=== PATIENT | female | born 1980 | race Caucasian/White ===

== ENCOUNTER 2020-04-27 23:00 | Emergency (ER) | payer SELFPAY ==
[2020-04-27 23:27] VITALS: BP 215/154; PULSE 99; RESP 18; TEMP 36.8; O2SAT 97; BMI 37.8
[2020-04-27 23:49] VITALS: BP 202/137; PULSE 84; RESP 16; O2SAT 99
[2020-04-28] VITALS (12 sets, daily range): BP systolic 166–199; BP diastolic 110–134; PULSE 74–101; RESP 16–18; O2SAT 94–100
--- NOTE | 2020-04-28 00:04 | ED_ITS ---
HPI - Abdominal Pain General: Chief Complaint: Abdominal Pain Stated Complaint: hernia Time Seen by Provider: 04/28/20 00:00 History of Present Illness: HPI narrative: Patient is a 39-year-old female comes to the ED with abdominal pain. Patient has past surgical history of having 2 abdominal hernias repaired and one inguinal hernia repaired. Her latest abdominal hernia was repaired approximately a year ago. Patient says earlier today she was bending over to grab something she felt something pop in her abdomen. Patient says she noticed that she had a reducible bulge in the same area of her previous abdominal hernia. She now has 8 out of 10 abdominal pain. She says any movement or coughing increases pain. Denies any fever, chills, nausea/vomiting, diarrhea, constipation, dysuria or hematuria. Patient says she was on hydrochlorothiazide for blood pressure in the past but has not been taking her blood pressure med for several months now due to lack of insurance. She says she needs a new prescription for hydrochlorothiazide. Associated Symptoms: Denies chills, constipation, diarrhea, dysuria, fever(s), hematochezia, hematuria, nausea and vomiting Review of Systems Const: Denies: fever(s), chills or fatigue Eyes: Denies: change in vision or eye discomfort ENMT: Denies: throat pain, odynophagia, nasal discharge or nasal congestion Card: Denies: chest pain, palpitations, edema, swelling of feet/ankles, dyspnea on exertion or orthopnea Resp: Denies: dyspnea, productive cough or non-productive cough GI: Reports: abdominal pain; Denies: nausea, vomiting, diarrhea, constipation or hematochezia : Denies: flank pain, dysuria or hematuria Musc: Denies: neck pain, back pain or extremity swelling Skin/Breast: Denies: rash or new lesions Neuro: Denies: headache(s), numbness in extremities or weakness in extremities PFSH ED PFSH: Family History Mother Cancer Lung Grandmother Cancer Breast Social History Smoking and tobacco status: current every day smoker Alcohol intake: current Household members: significant other Current gender identity: Female Physical Exam Const: COMMON NORMALS: no acute distress, patient oriented x3 and alert GENERAL APPEARANCE: cooperative and comfortable HENMT: COMMON NORMALS: normocephalic HEAD & SCALP: normocephalic MOUTH: Normal oral and palatal mucosa present THROAT: posterior oropharynx normal and uvula midline Neck/C-Spine: COMMON NORMALS: supple GENERAL: Yes normal visual inspection Resp: COMMON NORMALS: normal respiratory effort, No retractions, No use of accessory muscles and clear to auscultation bilaterally AUSCULTATION: clear to auscultation bilaterally Cardio: COMMON NORMALS: regular rate, regular rhythm, S1 normal heart sound present, S2 normal heart sound present, No gallops present (Cardio), No clicks present (Cardio), No murmurs present (Cardio) and Peripheral pulses 2+ throughout RATE: regular rate RHYTHM: regular rhythm HEART SOUNDS: S1 normal heart sound present and S2 normal heart sound present PERIPHERAL PULSES: Peripheral pulses 2+ throughout GI: COMMON NORMALS: Normal to inspection, nondistended, normoactive bowel sounds present, Soft to palpation and no masses INSPECTION: No visible herniation PALPATION: Yes Soft to palpation, Yes Tenderness to palpation present (GI) (Periumbilical pain upon palpation. No mass or hernia palpated.), No Hernia present and No Palpable mass present : COMMON NORMALS: Yes no CVA tenderness BLADDER/KIDNEY EXAM: Yes no CVA tenderness EXTERNAL FEMALE EXAM: No Hernia present Back/Pelvis: COMMON NORMALS: no CVA tenderness Extremity: COMMON NORMALS: normal to inspection Neuro: COMMON NORMALS: patient oriented x3 SENSORIUM/ORIENTATION: Yes alert GAIT: Yes Normal gait present Skin: GENERAL SKIN EXAM: dry skin Course Vital Signs: Vital signs: Vital Signs Temperature 98.2 F 04/27/20 23:27 Pulse Rate 91 04/28/20 02:00 Respiratory Rate 18 04/28/20 03:36 Blood Pressure 166/124 04/28/20 02:00 Pulse Oximetry 94 04/28/20 03:36 3:27 AM I went and saw patient and her blood pressure was 184/107. MDM - Abdominal Pain MDM Narrative: Medical decision making narrative: Is a 39-year-old female comes to the ED with abdominal pain. She has a past medical history of abdominal hernia and inguinal hernia. Today she bent over and lifted something up and felt a pop in her abdomen and states that she had a bulge in her abdomen that she was able to reduce. Physical exam showed some periumbilical tenderness but no mass or hernia palpated. CBC, CMP and UA were unremarkable. Lipase 11 and hCG negative. Patient's blood pressure was 215/154. Patient was given 20 mg of IV labetalol and her blood pressure went down to 184/107. Denies any neurological symptoms or headache. Patient says she was taking hydrochlorothiazide to help with her blood pressure but stopped taking it several months ago and has been out of her prescription. CT of the abdomen showed small fat-containing umbilical hernia with some stranding. I placed an order with case management for patient be referred to general surgeon for evaluation. She was diagnosed with umbilical hernia and hypertensive urgency. Patient was sent home with a prescription for hydrochlorothiazide and Zofran for nausea. She was told to follow-up with her PCP in 7 to 10 days for reevaluation and to discuss hernia and blood pressure management. Return to ED precautions given. I told her that case management should be contacting her in the next several days to set up an appointment with general surgery. Patient understood and agreed with plan. Lab Data: Attestation: I reviewed the patient's lab results. Labs: Lab Results 04/28/20 04/28/20 04/28/20 Range/Units 00:23 00:23 00:23 WBC 9.9 (4.0-10.0) 10^3/ uL RBC 4.55 (4.1-5.3) 10^6/u L Hgb 13.9 (11.5-15.3) g/dL Hct 42.1 (37.0-47.0) % MCV 92.5 (81-99) fL MCH 30.5 (28.0-34.0) pg MCHC 33.0 (30.0-36.0) g/dL RDW 13.0 (12.1-15.1) % Plt Count 254 (130-400) 10^3/c mm MPV 10.6 H (7.4-10.4) fL Neut % (Auto) 64.7 % Lymph % (Auto) 27.7 % Foster % (Auto) 6.6 % Eos % (Auto) 0.5 % Baso % (Auto) 0.3 % Neut # (Auto) 6.42 (1.8-7.7) 10^3/u L Lymph # (Auto) 2.8 (0.8-4.8) 10^3/u L Foster # (Auto) 0.7 (0.2-0.9) 10^3/u L Eos # (Auto) 0.1 (0.0-0.8) 10^3/u L Baso # (Auto) 0.0 (0.0-0.1) 10^3/u L Nucleated RBC % (a uto) 0 % Nucleated RBCs # 0.0 /100WBC Sodium 139 (136-145) mmol/L Potassium 3.3 L (3.5-5.1) mmol/L Chloride 101 (98-107) mmol/L Carbon Dioxide 26 (22-29) mmol/L Anion Gap 15.3 (5-19) BUN 8 (6-20) mg/dL Creatinine 0.6 (0.5-0.9) mg/dL GFR Calculation 110.2 (90-130) mL/min Glucose 96 (65-115) mg/dL Calculated Osmolal ity 286 (285-295) mOsm/k g Calcium 9.1 (8.5-10.5) mg/dL Total Bilirubin 0.3 (0.15-1.2) mg/dL AST 15 (0-32) U/L ALT 18 (0-33) U/L Alkaline Phosphata se 78 (35-105) IU/L Total Protein 6.8 (6.6-8.7) g/dL Albumin 4.3 (3.5-5.2) g/dL Globulin 2.5 (1.3-4.6) g/dL Lipase 11 L (13-60) U/L HCG, Qual Negative (Negative) Urine Color (Yellow) Urine Appearance (CLEAR) Urine pH (5-7) Ur Specific Gravit y (1.005-1.030) Urine Protein (Negative) Urine Glucose (UA) (Normal) Urine Ketones (Negative) Urine Blood (Negative) Urine Nitrate (Negative) Urine Bilirubin (Negative) Urine Urobilinogen (Negative) mg/dL Ur Leukocyte Patrica ase (Negative) Urine RBC (0-2) /hpf Urine WBC (0-5) /hpf Ur Squamous Epith Cells (0-5) /hpf Ur Transition Epit h Cell /hpf Amorphous Sediment Urine Bacteria (NONE) /hpf 12/05/20 Range/Units 00:23 WBC (4.0-10.0) 10^3/ uL RBC (4.1-5.3) 10^6/u L Hgb (11.5-15.3) g/dL Hct (37.0-47.0) % MCV (81-99) fL MCH (28.0-34.0) pg MCHC (30.0-36.0) g/dL RDW (12.1-15.1) % Plt Count (130-400) 10^3/c mm MPV (7.4-10.4) fL Neut % (Auto) % Lymph % (Auto) % Foster % (Auto) % Eos % (Auto) % Baso % (Auto) % Neut # (Auto) (1.8-7.7) 10^3/u L Lymph # (Auto) (0.8-4.8) 10^3/u L Foster # (Auto) (0.2-0.9) 10^3/u L Eos # (Auto) (0.0-0.8) 10^3/u L Baso # (Auto) (0.0-0.1) 10^3/u L Nucleated RBC % (a uto) % Nucleated RBCs # /100WBC Sodium (136-145) mmol/L Potassium (3.5-5.1) mmol/L Chloride (98-107) mmol/L Carbon Dioxide (22-29) mmol/L Anion Gap (5-19) BUN (6-20) mg/dL Creatinine (0.5-0.9) mg/dL GFR Calculation (90-130) mL/min Glucose (65-115) mg/dL Calculated Osmolal ity (285-295) mOsm/k g Calcium (8.5-10.5) mg/dL Total Bilirubin (0.15-1.2) mg/dL AST (0-32) U/L ALT (0-33) U/L Alkaline Phosphata se (35-105) IU/L Total Protein (6.6-8.7) g/dL Albumin (3.5-5.2) g/dL Globulin (1.3-4.6) g/dL Lipase (13-60) U/L HCG, Qual (Negative) Urine Color Yellow (Yellow) Urine Appearance Clear (CLEAR) Urine pH 6 (5-7) Ur Specific Gravit y 1.010 (1.005-1.030) Urine Protein Neg (Negative) Urine Glucose (UA) Norm (Normal) Urine Ketones Negative (Negative) Urine Blood Neg (Negative) Urine Nitrate Negative (Negative) Urine Bilirubin Neg (Negative) Urine Urobilinogen Norm (Negative) mg/dL Ur Leukocyte Patrica ase Negative (Negative) Urine RBC 0-4 H (0-2) /hpf Urine WBC None (0-5) /hpf Ur Squamous Epith Cells 25-40 H (0-5) /hpf Ur Transition Epit h Cell 0-4 /hpf Amorphous Sediment Not Reportable Urine Bacteria 2+ H (NONE) /hpf Imaging Data ^: CT Abd/Pel: Attestation: I personally reviewed and interpreted this imaging study as follows: Radiologist's impression: [employer] [address] [address] Scan Report Signed Patient: Maria Victoria Ferrari Unit #: [id number] : 1980 Age/Sex: 39 / F ADM Date: 04/27/20 Loc: ER Room/Bed: Attending Dr: Ordering Provider/Ordering MD: Vern Hamilton Date of Service: 04/28/20 Procedure(s): CT abdomen pelvis w con* [id number] Accession Number(s): [id number] Report Number: [id number] PROCEDURE INFORMATION: Exam: CT Abdomen And Pelvis With Contrast Exam date and time: 04/28/2020 12:51 AM Age: 39 years old Clinical indication: Abdominal pain; Prior surgery; Surgery type: Hernia repair; Patient HX: Periumbilical pain; Additional info: Abdom pain, abdominal hernia TECHNIQUE: Imaging protocol: Computed tomography of the abdomen and pelvis with intravenous contrast. Radiation optimization: All CT scans at this facility use at least one of these dose optimization techniques: automated exposure control; mA and/or kV adjustment per patient size (includes targeted exams where dose is matched to clinical indication); or iterative reconstruction. Contrast material: OMNI 300; Contrast volume: 95 ml; Contrast route: INTRAVENOUS (IV); COMPARISON: CT abdomen pelvis wo con [id number] 05/08/2019 1:43 PM RADIATION DOSE METRICS: Total DLP (mGy-cm): 1331.66 FINDINGS: Liver: Normal. No mass. Gallbladder and bile ducts: Normal. No calcified stones. No ductal dilation. Pancreas: Normal. No ductal dilation. Spleen: Normal. No splenomegaly. Adrenal glands: Normal. No mass. Kidneys and ureters: Small 9 mm round hypodense lesions in the left kidney is too small to characterize but is likely benign. Stomach and bowel: Diverticulosis coli is seen, without evidence of diverticulitis. No intestinal obstruction. Appendix: The appendix is normal. Intraperitoneal space: Unremarkable. No free air. No significant fluid collection. Vasculature: Unremarkable. No abdominal aortic aneurysm. Lymph nodes: Unremarkable. No enlarged lymph nodes. Urinary bladder: Unremarkable as visualized. Reproductive: Unremarkable as visualized. Bones/joints: Unremarkable. No acute fracture. Soft tissues: A small umbilical hernia containing fat is again seen. Mild stranding is observed in the herniated fat. CT/CT abdomen pelvis w con* [id number] IMPRESSION: 1. Small fat containing umbilical hernia demonstrating stranding. Vascular compromise or infection of the herniated fat are diagnostic considerations. 2. Diverticulosis coli. COMMENTS: Consistent with the [employer]'s Incidental Findings Committee white paper (J Am Bret Radiol 2018): Any incidental renal lesion less than 1 cm or classified as too small to characterize, or any incidental cystic renal lesion characterized as simple-appearing, is likely benign. No follow-up imaging is recommended for these lesions per consensus recommendations based on imaging criteria. Radiation Dose CTDIVOL = (mGy): DLP = 1331.66 (mGy-cm) Dictated By: Primitivo Hurtado MD Signed By: Primitivo Hurtado MD Signed Date/Time: 04/28/20142 DD/ 0 Discharge Plan Discharge Patient Disposition: Home Clinical Impression: Asymptomatic hypertensive urgency Hernia, umbilical Qualifiers: Obstruction and gangrene presence: without obstruction or gangrene Qualified Code(s): K42.9 - Umbilical hernia without obstruction or gangrene Condition: Stable Prescriptions: New hydrochlorothiazide 25 mg tablet 25 mg PO QAM Qty: 30 RF: 0 Zofran 4 mg tablet 4 mg PO Q8H Qty: 12 RF: 0 No Action azithromycin 250 mg tablet 250 mg PO DAILY 5 Days Qty: 6 RF: 0 promethazine-DM 6.25-15 mg/5 mL syrup 5 ml PO .q8 hours PRN (Reason: cough) Qty: 120 RF: 0 simvastatin 10 mg tablet 10 mg PO QDAY RF: 0 hydrochlorothiazide 25 mg tablet 25 mg PO QAM RF: 0 fexofenadine [Natalie Allergy] 60 mg tablet 180 mg PO Q24H RF: 0 Discharge Orders: Discharge ED (Routine); Ordered 04/28/20 Ordered By: Vern Hamilton Referrals: Betsy Mitchell, [Primary Care Provider] - Discharge Diet: Regular Discharge Activity: Increase activity as tolerated Patient Instructions: Umbilical Hernia (ED), Hypertensive Crisis (ED), Hypertension (ED) Activity Restrictions/Additional Instructions: Follow-up with medical provider as directed in the next 7 to 10 days to reevaluate hernia and blood pressure management. Case management should be contacting you in the next several days to set up an appointment with general surgery. Take medications as prescribed. Return to the ER or your medical provider if condition worsens. Please read and understand discharge instructions. If any questions, please ask. Stand Alone Forms: Work/School Release Coding Level of Care Code ED Mental Tester for Johang Fwd Exam Comprehensive
--- NOTE | 2020-04-28 00:15 | CTR_ITS ---
PROCEDURE INFORMATION: Exam: CT Abdomen And Pelvis With Contrast Exam date and time: 04/28/2020 12:51 AM Age: 39 years old Clinical indication: Abdominal pain; Prior surgery; Surgery type: Hernia repair; Patient HX: Periumbilical pain; Additional info: Abdom pain, abdominal hernia TECHNIQUE: Imaging protocol: Computed tomography of the abdomen and pelvis with intravenous contrast. Radiation optimization: All CT scans at this facility use at least one of these dose optimization techniques: automated exposure control; mA and/or kV adjustment per patient size (includes targeted exams where dose is matched to clinical indication); or iterative reconstruction. Contrast material: OMNI 300; Contrast volume: 95 ml; Contrast route: INTRAVENOUS (IV); COMPARISON: CT abdomen pelvis wo con [id number] 05/08/2019 1:43 PM RADIATION DOSE METRICS: Total DLP (mGy-cm): 1331.66 FINDINGS: Liver: Normal. No mass. Gallbladder and bile ducts: Normal. No calcified stones. No ductal dilation. Pancreas: Normal. No ductal dilation. Spleen: Normal. No splenomegaly. Adrenal glands: Normal. No mass. Kidneys and ureters: Small 9 mm round hypodense lesions in the left kidney is too small to characterize but is likely benign. Stomach and bowel: Diverticulosis coli is seen, without evidence of diverticulitis. No intestinal obstruction. Appendix: The appendix is normal. Intraperitoneal space: Unremarkable. No free air. No significant fluid collection. Vasculature: Unremarkable. No abdominal aortic aneurysm. Lymph nodes: Unremarkable. No enlarged lymph nodes. Urinary bladder: Unremarkable as visualized. Reproductive: Unremarkable as visualized. Bones/joints: Unremarkable. No acute fracture. Soft tissues: A small umbilical hernia containing fat is again seen. Mild stranding is observed in the herniated fat. CT/CT abdomen pelvis w con* [id number] IMPRESSION: 1. Small fat containing umbilical hernia demonstrating stranding. Vascular compromise or infection of the herniated fat are diagnostic considerations. 2. Diverticulosis coli. COMMENTS: Consistent with the [employer]'s Incidental Findings Committee white paper (J Am Bret Radiol 2018): Any incidental renal lesion less than 1 cm or classified as too small to characterize, or any incidental cystic renal lesion characterized as simple-appearing, is likely benign. No follow-up imaging is recommended for these lesions per consensus recommendations based on imaging criteria. Radiation Dose CTDIVOL = (mGy): DLP = 1331.66 (mGy-cm)
[2020-04-28 00:40] LABS: Basophils % 0.3 %; Eosinophils # 0.1 10^3/uL (0.0-0.8); Eosinophils % 0.5 %; Hematocrit 42.1 % (37.0-47.0); Hemoglobin 13.9 g/dL (11.5-15.3); Lymphocytes # 2.8 10^3/uL (0.8-4.8); Lymphocytes % 27.7 %; Mean Corpuscular Hemoglobin 30.5 pg (28.0-34.0); Mean Corpuscular Volume 92.5 fL (81-99); Mean Platelet Volume 10.6 fL (7.4-10.4); Monocytes # 0.7 10^3/uL (0.2-0.9); Monocytes % 6.6 %; Neutrophils # 6.42 10^3/uL (1.8-7.7); Neutrophils % 64.7 %; Nucleated Red Blood Cells % 0 %; Platelet Count 254 10^3/cmm (130-400); Red Blood Count 4.55 10^6/uL (4.1-5.3); White Blood Count 9.9 10^3/uL (4.0-10.0)
[2020-04-28 00:50] LABS: HCG, Serum Qual Negative (Negative)
[2020-04-28 00:53] LABS: Alanine Aminotransferase 18 U/L (0-33); Albumin Level 4.3 g/dL (3.5-5.2); Alkaline Phosphatase 78 IU/L (35-105); Anion Gap 15.3 (5-19); Aspartate Amino Transferase 15 U/L (0-32); Blood Urea Nitrogen 8 mg/dL (6-20); Calcium 9.1 mg/dL (8.5-10.5); Carbon Dioxide 26 mmol/L (22-29); Chloride 101 mmol/L (98-107); Creatinine Clr Calc Pharmacy 141.6837; Globulin 2.5 g/dL (1.3-4.6); Glomerular Filtration Rate 110.2 mL/min (90-130); Glucose 96 mg/dL (65-115); Lipase 11 U/L (13-60); Osmolality Calculated 286 mOsm/kg (285-295); Potassium 3.3 mmol/L (3.5-5.1); Sodium 139 mmol/L (136-145); Total Bilirubin 0.3 mg/dL (0.15-1.2); Total Protein 6.8 g/dL (6.6-8.7)
[2020-04-28] MEDS: iohexol 300 mg/mL 100 mL Btl IV (00:58)
[2020-04-28] MEDS: ondansetron 2 mg/ML SDV 2 mL 4 MG IVP (01:12)
[2020-04-28] MEDS: morphine 4 mg/mL SDV 1 mL IVP (01:12)
[2020-04-28] MEDS: sodium chloride 0.9% 1,000 ML 999 ML IV (01:13)
[2020-04-28 01:33] LABS: Bilirubin Urine Neg (Negative); Blood Urine Neg (Negative); Glucose Urine UA Norm (Normal); Ketones Urine Negative (Negative); Leukocyte Esterase Urine Negative (Negative); Nitrate Urine Negative (Negative); Protein Urine Neg (Negative); Urine Appearance Clear (CLEAR); Urine Color Yellow (Yellow); Urobilinogen Urine Norm (Negative); pH Urine 6 (5-7)
[2020-04-28 01:34] LABS: Add Urine Culture? No; Bacteria Urine 2+ /hpf; RBC Urine 0-4 /hpf (0-2); Squamous Epithelial Cell Urine 25-40 /hpf (0-5); Transitional Epi Cells Urine 0-4 /hpf
[2020-04-28] MEDS: labetalol 5 mg/mL SDV 20mL 20 MG IVP (02:32)
[2020-04-28] MEDS: HYDROmorphone 1 mg/mL INJ 1 mL IVP (03:36)
[2020-04-28] MEDS: HYDROcodone-acetaminophen 7.5-325 mg Tablet 2 TAB PO (04:00)
--- NOTE | 2020-05-01 09:46 | DCPLANNER ---
international trade manager had message to schedule a follow up appointment for patient with [facility] General Surgery. international trade manager emailed both Tamara and Jenny at the clinic patients information. Patients information will be printed and reviewed. Clinic will call patient with appointment information.
--- NOTE | 2020-05-02 13:40 | DCPLANNER ---
Patient has a follow up appointment scheduled for Thursday, 05.04.20 at 9:[address] Liu. Clinic will call patient with appointment information.
--- NOTE | 2020-05-08 12:13 | DCPLANNER ---
Patient had a follow up appointment scheduled for 05.04.20 with general surgery - patient did attend appointment.
== END 2020-04-28 04:07 | disposition home or self-care (01) ==
PROVIDERS: Emergency Provider Physician Assistant; PCP Internal Medicine
DX: I16.0 Hypertensive urgency (principal); K42.9 Umbilical hernia without obstruction or gangrene; F17.210 Nicotine dependence, cigarettes, uncomplicated
CPT/HCPCS: 12345; 36415; 74177; 80053; 81001; 83690; 84703; 85025; 96361; 96374; 96375; 99283; J1170; J2270; J2405; J3490; J7030; Q9967

== ENCOUNTER → 2020-05-21 16:56 | Outpatient (BNVA) | payer SELFPAY | PROVIDERS: PCP Internal Medicine; Visit Provider Surgery | DX: Z20.828 Contact with and (suspected) exposure to other viral communicable diseases (principal) | CPT/HCPCS: 87635 ==

== ENCOUNTER 2020-05-28 07:17 | Day surgery (SDC) | payer SELFPAY ==
[2020-05-24 12:12] VITALS: BMI 37.2
--- NOTE | 2020-05-28 07:30 | W.PM.OPSUD ---
Surgery/Procedure H&P Update DATE OF PROCEDURE: May 28, 2020 DATE H&P PERFORMED: 05/04/20 H&P UPDATE INFORMATION: I have reviewed H&P completed within last 30 days, I have examined patient prior to procedure and No changes to prior documentation PREOP DIAGNOSIS: Recurrent umbilical hernia PLANNED PROCEDURE: Operation Date: 05/28/20 08:00 Proposed Procedures p open Umbilical Hernia Repair w/ possible Mesh [id number] k42.9(Not Applicable) - Jesus Liu MD
[2020-05-28 07:34] LABS: OR HCG Qualitative Urine Negative (Negative)
[2020-05-28] MEDS: sodium chloride 0.9% 1,000 ML 30 ML IV (07:45)
[2020-05-28] MEDS: vancomycin 1,000 MG in sodium chloride 0.9% 250 ML 250 MG IV (07:45)
--- NOTE | 2020-05-28 07:45 | ANES.PREANE2 ---
Pre-Anesthetic Assessment Pre-Anesthetic Assessment: Height/Weight: Height 1.63 m Weight 98.43 kg Preop Diagnosis: Recurrent umbilical hernia Proposed Procedure: Operation Date: 05/28/20 08:00 Proposed Procedures p open Umbilical Hernia Repair w/ possible Mesh 64201 k42.9(Not Applicable) - Jesus Liu MD Was Beta Tere taken within 24 hours: N/A Last intake: Intake Last Liquid Date 05/26/20 Last Liquid Time 23:59 Last Solid Date 05/27/20 Last Solid Time 22:30 Social: Social History: Tobacco Packs per day: 1 Exam: Pre-Anes Outpt Exam: alert, oriented x 3, clear to auscultation bilaterally and regular rate & rhythm Airway: Submandibular: WNL Cervical ROM: WNL MP: 2 Dentition: Full History/ROS: No significant history except as noted and No significant complaints Pulmonary: Pulmonary: Cough CV/HEM: CV/HEM: HTN : : None reported Hepatic: Hepatic: None reported GI: GI: None reported Metabolic: Metabolic: None reported Musc/skel: Musc/skel: None reported Neuropsych: Neuropsych: None reported Anesthetic Plan: ASA status: 2 Anesthesia: General Risk of > 500 ml blood loss (7ml/kg in children): No PFSH Anesthesia PFSH: Medical History Essential (primary) hypertension Surgical History History of umbilical hernia repair Status post right inguinal hernia repair Family History Mother Cancer Lung Grandmother Cancer Breast Social History Smoking and tobacco status: current every day smoker Alcohol intake: current Household members: significant other Current gender identity: Female Female Reproductive History: Date of last menstrual period: 05/07/20 Data Anesthesia Other Labs: Laboratory Results - last 48 hr 05/28/20 06:18 Urine HCG, Qual Negative Cardiac Studies: No Data to Display
[2020-05-28 07:50] VITALS: BP 178/116; PULSE 106; RESP 20; TEMP 36.4; O2SAT 98
[2020-05-28] MEDS: labetalol 5 mg/mL SDV 20mL 10 MG IVP (07:55)
[2020-05-28] MEDS: labetalol 5 mg/mL SDV 20mL IVP (08:15)
[2020-05-28 09:39] VITALS: BP 162/96; PULSE 82; RESP 20; TEMP 36.4; O2SAT 98
--- NOTE | 2020-05-28 09:40 | PM.OP ---
Operative Report Date of procedure: May 28, 2020 Pre-op Diagnosis: Incarcerated recurrent umbilical hernia Post-op diagnosis: same Procedure Done: Open repair of incarcerated recurrent umbilical hernia with implantation of underlay mesh Specimens removed/disposition: incarcerated omentum Surgeon: Jesus Liu Anesthesia: General Condition: stable Disposition: PACU Procedure: The patient was taken to the operating room and intubated under general anesthesia after IV antibiotic had been administered. The abdomen was prepped and draped in a sterile manner. Using a 15 blade a 3 cm longitudinal incision was made over the umbilicus, subcutaneous tissue was divided with electrocautery and the hernia sac containing incarcerated omentum was excised. Through the hernia defect which measured about 2.5 cm the underlying mesh could be palpated and there was no defect noted suggesting that this was a preperitoneal fat that had become incarcerated in the umbilical defect. The incarcerated omentum was excised and sent to pathology. 3 x [address] mesh was placed in the retrorectus space anterior to the existing mesh and sutured to the fascia using 0 Vicryl suture. The fascia was approximated over the mesh using [id number] 0 Vicryl suture. Wound was irrigated with saline, subcutaneous tissues approximated using interrupted 3-0 Vicryl suture and skin was closed using running subcuticular 4-0 Monocryl suture and surgical glue. 0.5% Marcaine was infiltrated around the incision. The patient was extubated and transferred to recovery room in stable condition.
[2020-05-28 09:46] VITALS: BP 150/98; PULSE 76; RESP 18; O2SAT 98
[2020-05-28 09:50] VITALS: BP 144/97; PULSE 78; RESP 18; TEMP 36.4; O2SAT 95
[2020-05-28 09:57] VITALS: BP 142/93; PULSE 84; RESP 18; TEMP 36.4; O2SAT 98
[2020-05-28] MEDS: HYDROcodone-acetaminophen 5-325 mg Tablet 1 TAB PO (10:21)
[2020-05-28 10:23] VITALS: BP 158/106; PULSE 83; RESP 18; TEMP 36.4; O2SAT 98
--- NOTE | 2020-05-28 18:36 | ANE.PACU2 ---
Inpatient post-anesthesia follow up: Airway intact: Yes Vital signs: Temperature 97.6 F Pulse Rate 83 Respiratory Rate 18 Blood Pressure 158/106 Pulse Oximetry 98 Oxygen Delivery Me thod Room Air Oxygen Flow Rate Fraction of Inspir ed Oxygen Hydration adequate: Yes Nausea and vomiting: No Pain level: 1 Mental status: Baseline
== END 2020-05-28 10:51 | disposition home or self-care (01) ==
PROVIDERS: Anesthesiology; PCP Internal Medicine; Visit Provider Surgery
PROC: (CPT 49587; principal; 2020-05-28 08:00)
DX: K42.0 Umbilical hernia with obstruction, without gangrene (principal); F17.210 Nicotine dependence, cigarettes, uncomplicated; I10 Essential (primary) hypertension
CPT/HCPCS: 49587; 12345; 81025; 84703; 88302; J1100; J1885; J2405; J2704; J2710; J3010; J3370; J3490; J7030; J7050

== ENCOUNTER → 2021-03-06 11:43 | Outpatient (BNVA) | payer OTHER, SELFPAY | PROVIDERS: PCP Internal Medicine | DX: Z20.822 Contact with and (suspected) exposure to COVID-19 (principal) | CPT/HCPCS: 87635 ==

== ENCOUNTER → 2021-06-18 12:06 | Outpatient (BNVA) | payer SELFPAY | PROVIDERS: PCP Internal Medicine | DX: Z20.822 Contact with and (suspected) exposure to COVID-19 (principal) | CPT/HCPCS: 87635 ==

== ENCOUNTER → 2021-09-24 15:23 | Outpatient (BNVA) | payer SELFPAY | PROVIDERS: PCP Internal Medicine; Visit Provider Registered Nurse Neonatal Intensive Care | DX: J02.9 Acute pharyngitis, unspecified (principal); H66.90 Otitis media, unspecified, unspecified ear | CPT/HCPCS: 87880 ==

== ENCOUNTER → 2021-10-01 15:54 | Outpatient (BNVA) | payer SELFPAY | PROVIDERS: PCP Internal Medicine; Visit Provider Family Medicine | DX: J04.0 Acute laryngitis (principal) | CPT/HCPCS: 87880 ==

== ENCOUNTER 2022-01-05 11:31 | Observation (INO) | payer SELFPAY ==
[2022-01-05] VITALS (20 sets, daily range): BP systolic 146–259; BP diastolic 84–148; PULSE 80–125; RESP 15–88; TEMP 36.7; O2SAT 94–100; BMI 36.8
[2022-01-05] MEDS: amlodipine 10 mg Tablet PO (12:30)
[2022-01-05] MEDS: labetalol 5 mg/mL SDV 20mL 10 MG IVP ×2 (12:32→15:27)
--- NOTE | 2022-01-05 12:35 | W.ED.HA ---
HPI - Headache General: Chief Complaint: Headache Stated Complaint: pain in the back of neck and puffy in face. Time Seen by Provider: 01/05/22 12:17 Source: patient Mode of arrival: ambulatory Limitations: no limitations History of Present Illness: 1-year-old female presents emergency room with a headache she playset had it for the last 2 weeks with the base of her neck and her scalp her blood pressures been elevated as well she has not taken her medicines for a couple of months. She denies any weakness no chest pain no visual changes no difficulty speaking or swallowing. She complains a little bit of ear pain on the right but does not have any drainage from it has not seen anybody for it. MD elicited complaint: headache Onset description: suddenly Location: right Quality & Timing: throbbing Exacerbating factors: none Relieving factors: nothing Context: occurred at rest Associated symptoms: Deny chest pain, confusion, cough, diaphoresis, eye pain, eye redness, fever(s), lightheadedness, loss of vision, malaise, nausea, neck stiffness, numbness, paresthesias, photophobia, pre-syncope, rash, seizures, short of breath, sound sensitivity, syncope, vomiting or weakness Treatments prior to arrival: none Review of Systems Const: Denies: fever(s), malaise or diaphoresis ENMT: Denies: throat pain, ear or mastoid pain, nasal discharge or nasal congestion Card: Denies: chest pain, lightheadedness, syncope or pre-syncope Resp: Denies: dyspnea, productive cough or non-productive cough GI: Denies: abdominal pain, nausea or vomiting : Denies: flank pain, difficulty voiding, dysuria, urinary frequency or urinary urgency Musc: Reports: neck pain Skin/Breast: Denies: rash Neuro: Denies: confusion PFSH ED PFSH: Medical History Acute bronchitis and bronchiolitis COVID Positive test 06/18/2021. Dental caries Essential (primary) hypertension Hx of intrinsic asthma Hypertension, uncontrolled Surgical History History of umbilical hernia repair History of umbilical hernia repair (05/28/20) Recurrent Status post right inguinal hernia repair Family History Mother Cancer Lung Grandmother Cancer Breast Social History Smoking and tobacco status: current every day smoker Alcohol intake: current Household members: significant other Current gender identity: Female Female Reproductive History: Date of last menstrual period: 12/29/21 Physical Exam Const: GENERAL APPEARANCE: cooperative and comfortable ORIENTATION/CONSCIOUSNESS: Yes awake, Yes oriented to person, Yes oriented to place and Yes oriented to time HENMT: COMMON NORMALS: normocephalic, atraumatic, hearing grossly normal bilaterally, external ears normal, EAC's normal, TM's normal bilaterally, Normal nasal mucous membranes and turbinates present, moist oral mucous membranes and oropharynx normal HEAD & SCALP: normocephalic and atraumatic NOSE: Normal nasal mucous membranes and turbinates present EXTERNAL EAR: Yes external ears normal EXTERNAL AUDITORY CANAL: EAC's normal TYMPANIC MEMBRANE: TM's normal bilaterally Eye: COMMON NORMALS: Equal, round and reactive pupils present, EOMs intact bilaterally, conjunctivae normal and no scleral icterus CONJUNCTIVA: Yes conjunctivae normal PUPIL: Yes Equal, round and reactive pupils present DIRECT OPHTHALMOSCOPY: No photophobia Neck/C-Spine: COMMON NORMALS: full ROM, no lymphadenopathy, supple and no JVD Lymph: LYMPHATIC: no lymphadenopathy noted and no lymphedema noted Resp: COMMON NORMALS: normal respiratory effort, No retractions, No use of accessory muscles and clear to auscultation bilaterally AUSCULTATION: clear to auscultation bilaterally Cardio: COMMON NORMALS: no JVD, regular rate, regular rhythm and No murmurs present (Cardio) RATE: regular rate RHYTHM: regular rhythm GI: COMMON NORMALS: Soft to palpation and No hepatosplenomegaly present AUSCULTATION: Yes normoactive bowel sounds PALPATION: Yes Soft to palpation, No Tenderness to palpation present (GI), No Guarding due to palpation present (GI) and Yes No hepatosplenomegaly present Extremity: COMMON NORMALS: normal to inspection, capillary refill normal, no clubbing, cyanosis or edema, no calf tenderness and no pedal edema Neuro: SENSORIUM/ORIENTATION: Yes oriented to person, Yes oriented to place and Yes oriented to time OTHER: No focal neurologic deficits no meningeal signs Skin: COMMON NORMALS: no rashes or lesions noted GENERAL SKIN EXAM: no rashes or lesions noted Course Vital Signs: Vital signs: Vital Signs Temperature 98.1 F 01/05/22 11:38 Pulse Rate 85 01/05/22 17:15 Respiratory Rate 21 H 01/05/22 17:15 Blood Pressure 186/134 01/05/22 17:15 Pulse Oximetry 98 01/05/22 17:15 Oxygen Delivery Me thod 01/05/22 17:15 MDM - Headache Medical Decision Making Blood pressure remains elevated despite multiple medications we will admit her nicardipine drip discussed with the patient discussed the hospitalist orders written Medical Records I reviewed the patient's medical records. Lab Data I reviewed the patient's lab results. : 01/05/22 12:19 01/05/22 12:19 Laboratory Results WBC 7.1 10^3/uL (4.0-10.0) 01/05/22 12:19 RBC 4.28 10^6/uL (4.1-5.3) 01/05/22 12:19 Hgb 12.9 g/dL (11.5-15.3) 01/05/22 12:19 Hct 40.2 % (37.0-47.0) 01/05/22 12:19 MCV 93.9 fl (81-99) 01/05/22 12:19 MCH 30.1 pg (28.0-34.0) 01/05/22 12:19 MCHC 32.1 g/dL (30.0-36.0) 01/05/22 12:19 RDW 13.6 % (12.1-15.1) 01/05/22 12:19 Plt Count 267 10^3/cmm (130-400) 01/05/22 12:19 MPV 10.9 fL (7.4-10.4) H 01/05/22 12:19 Neut % (Auto) 58.9 % 01/05/22 12:19 Lymph % (Auto) 29.5 % 01/05/22 12:19 [place] % (Auto) 8.8 % 01/05/22 12:19 Eos % (Auto) 2.0 % 01/05/22 12:19 Baso % (Auto) 0.4 % 01/05/22 12:19 Neut # (Auto) 4.17 10^3/uL (1.8-7.7) 01/05/22 12:19 Lymph # (Auto) 2.1 10^3/uL (0.8-4.8) 01/05/22 12:19 [place] # (Auto) 0.6 10^3/uL (0.2-0.9) 01/05/22 12:19 Eos # (Auto) 0.1 10^3/uL (0.0-0.8) 01/05/22 12:19 Baso # (Auto) 0.0 10^3/uL (0.0-0.1) 01/05/22 12:19 Nucleated RBC % (auto) 0 % 01/05/22 12:19 Nucleated RBCs # 0.0 /100WBC 01/05/22 12:19 Sodium 139 mmol/L (136-145) 01/05/22 12:19 Potassium 3.7 mmol/L (3.5-5.1) 01/05/22 12:19 Chloride 100 mmol/L (98-107) 01/05/22 12:19 Carbon Dioxide 26 mmol/L (22-29) 01/05/22 12:19 Anion Gap 16.7 (5-19) 01/05/22 12:19 BUN 7 mg/dL (6-20) 01/05/22 12:19 Creatinine 0.5 mg/dL (0.5-0.9) 01/05/22 12:19 GFR Calculation 134.7 mL/min (90-130) H 01/05/22 12:19 Glucose 92 mg/dL (65-115) 01/05/22 12:19 Calculated Osmolality 286 mOsm/kg (285-295) 01/05/22 12:19 Calcium 9.0 mg/dL (8.5-10.5) 01/05/22 12:19 Discharge Plan Discharge Patient Disposition: Placed in Observation Clinical Impression: Accelerated hypertension Condition: Stable Prescriptions: No Action acetaminophen [Tylenol Extra Strength] 500 mg tablet 500 mg PO Q6H PRN (Reason: Pain) albuterol sulfate 90 mcg/actuation HFA aerosol inhaler 1 inh inhalation QID Qty: 8.5 1RF Referrals: Betsy Mitchell DO [Primary Care Provider] - Coding Level of Care Code ED Bacteriologist Soil for Chg Fwd Exam Comprehensive
[2022-01-05] MEDS: ketorolac 30 mg/mL INJ IVP (12:36)
[2022-01-05] MEDS: promethazine 25 mg/mL SDV 1 mL IM (12:36)
[2022-01-05] MEDS: hyDRALAzine 20 mg/mL INJ 1 mL IVP (12:37)
[2022-01-05] MEDS: cloNIDine 0.1 mg Tablet PO (15:25)
--- NOTE | 2022-01-05 15:38 | XR_ITS ---
WS: [id number] Exam: XR chest 1V portable [id number] Date/Time of Exam: 01/05/2022 3:44 PM Reason For Exam: dyspnea/cough Comparison 05/20/2019. The lungs are fully expanded and clear. Normal cardiomediastinal silhouette and regional bony element s. Monitoring leads superimpose the chest. XR/XR chest 1V portable [id number] IMPRESSION: 1. Negative chest.
--- NOTE | 2022-01-05 15:38 | ECG_ITS ---
[facility] Test Date: 2022-01-05 Pat Name: Maria Victoria Ferrari Department: Room: Gender: Female Skid Man: : 1980 Requested By: Agustin Noriega Order Number: [id number] Robbin MD: Noe Younger M.D. Measurements Intervals [place] Rate: 77 P: 40 [place]: 139 QRS: 51 QRSD: 91 T: 91 QT: 303 QTc: 343 Interpretive Statements SINUS RHYTHM POSSIBLE LEFT ATRIAL ENLARGEMENT [-0.1mV P-WAVE IN V1/V2] NONSPECIFIC T-WAVE ABNORMALITY No previous ECG available for comparison Electronically Signed On 01-06-2022 17:39:14 CDT by Noe Younger M.D. [id number]
[2022-01-05 15:58] LABS: Basophils % 0.4 %; Eosinophils # 0.1 10^3/uL (0.0-0.8); Hematocrit 40.2 % (37.0-47.0); Hemoglobin 12.9 g/dL (11.5-15.3); Lymphocytes # 2.1 10^3/uL (0.8-4.8); Lymphocytes % 29.5 %; Mean Corpuscular HGB Conc 32.1 g/dL (30.0-36.0); Mean Corpuscular Hemoglobin 30.1 pg (28.0-34.0); Mean Corpuscular Volume 93.9 fl (81-99); Mean Platelet Volume 10.9 fL (7.4-10.4); Monocytes # 0.6 10^3/uL (0.2-0.9); Monocytes % 8.8 %; Neutrophils # 4.17 10^3/uL (1.8-7.7); Neutrophils % 58.9 %; Nucleated Red Blood Cells % 0 %; Platelet Count 267 10^3/cmm (130-400); Red Blood Count 4.28 10^6/uL (4.1-5.3); Red Cell Distribution Width 13.6 % (12.1-15.1); White Blood Count 7.1 10^3/uL (4.0-10.0)
[2022-01-05 16:22] LABS: Anion Gap 16.7 (5-19); Blood Urea Nitrogen 7 mg/dL (6-20); Carbon Dioxide 26 mmol/L (22-29); Chloride 100 mmol/L (98-107); Glomerular Filtration Rate 134.7 mL/min (90-130); Glucose 92 mg/dL (65-115); Osmolality Calculated 286 mOsm/kg (285-295); Potassium 3.7 mmol/L (3.5-5.1); Sodium 139 mmol/L (136-145)
--- NOTE | 2022-01-05 17:03 | PM.HP ---
Providers/Chief Complaint Primary Care Provider: Betsy Mitchell DO Chief Complaint: pain in the back of neck and puffy in face. History of Present Illness Maria Victoria Ferrari is a 41 year old female who carries history of hypertension, asthma, present to the hospital chief complaint of headache. She has not taken her antihypertensive for couple of months. No recent strokelike features chest pain or shortness of breath. Patient presented to the hospital for worsening of her headache her pressure was high. She has not been taking her blood pressure medications at home. Drug screen positive for marijuana. TSH is unremarkable In the ER her blood pressure has not reduced significantly down with multiple IV antihypertensive dosages Started on Cardene drip Review of Systems Const: Reports: body aches Eyes: Denies: change in vision ENMT: Reports: ear or mastoid pain Card: Denies: chest pain Resp: Denies: dyspnea GI: Denies: abdominal pain : Denies: flank pain Musc: Denies: neck pain Skin/Breast: Denies: changing lesions Neuro: Denies: headache(s) Psych: Denies: anxiety Endo: Denies: polyuria James/Lymph: Denies: easy bruising All/Imm: Denies: urticaria Medications/Allergies Home Medications Medication Instructions Recorded Confirmed Last Taken Type acetaminophen 500 mg tablet 500 mg PO Q6H PRN Pain 07/26/21 01/05/22 Unknown History (Tylenol Extra Strength) albuterol sulfate 90 mcg/actuation 1 inh inhalation QID coughing #8.5 07/26/21 01/05/22 Unknown Rx aerosol inhaler grams Allergies Allergy/AdvReac Type Severity Reaction Status Date / Time amoxicillin [From Augmentin] Allergy ALGY-Difficulty Verified 10/01/21 15:18 Swallowing clavulanic acid Allergy ALGY-Difficulty Verified 10/01/21 15:18 [From Augmentin] Swallowing lisinopril Allergy ALGY-Difficulty Verified 10/01/21 15:18 Swallowing PFSH Acute PFSH: Medical History Acute bronchitis and bronchiolitis COVID Positive test 06/18/2021. Dental caries Essential (primary) hypertension Hx of intrinsic asthma Hypertension, uncontrolled Surgical History History of umbilical hernia repair History of umbilical hernia repair (05/28/20) Recurrent Status post right inguinal hernia repair Family History Mother Cancer Lung Grandmother Cancer Breast Social History Smoking and tobacco status: current every day smoker Alcohol intake: current Household members: significant other Current gender identity: Female Female Reproductive History: Date of last menstrual period: 12/29/21 Vitals/I&O/Wt Last Vital Signs Temp 98.1 F 01/05/22 11:38 Pulse 87 01/05/22 16:47 Resp 20 H 01/05/22 16:47 BP 175/95 01/05/22 16:47 Pulse Ox 98 01/05/22 16:47 O2 Del Method 01/05/22 16:47 Weight last 48 hrs Weight 97.522 kg Physical Exam Narrative: Overweight female Nonfocal neuro exam S1, S2 Saturating well on room air Abdomen soft No signs of edema Awake and alert Pleasant cooperative No sign of cellulitis Appropriate mood and affect Data : 01/05/22 12:19 01/06/22 03:45 A&P Assessment and plan (1) Accelerated hypertension: Status: Acute (2) Hx of intrinsic asthma: Status: Acute (3) Hypertension, uncontrolled: Status: Acute Plan Hypertensive emergency Patient experiencing headache Start Cardene drip 50% reduction in next 4 to 6 hours Patient has listed allergy to lisinopril Check TSH Drug tox I will start her on chlorthalidone, amlodipine, losartan I would not start secondary hypertensive work-up for now DVT prophylaxis Lovenox Full code Cardiac diet Check A1c level Attestations Medical Necessity Statement*: Discharge within 48 hours she will need management for hypertensive urgency Time Spent in Patient Care: 40 Coding Level of Care Code Acute Weight Loss Consultant for g Fwd Diagnoses Accelerated hypertension I10 Hx of intrinsic asthma Z87.09 Hypertension, uncontrolled I10
[2022-01-05] MEDS: nicardipine 20 MG/200 ML PREMIX 50 MG IV ×2 (17:16→23:00)
[2022-01-05 18:02] LABS: Thyroid Stimulating Hormone 1.22 uIU/mL (0.27-4.20)
[2022-01-05 18:10] LABS: Add Urine Microscopic? YES; Bilirubin Urine Neg (Negative); Blood Urine Neg (Negative); Glucose Urine UA Norm (Normal); Ketones Urine Negative (Negative); Leukocyte Esterase Urine Negative (Negative); Nitrate Urine Negative (Negative); Protein Urine Trace (Negative); Urine Appearance Clear (CLEAR); Urine Color Yellow (Yellow); Urobilinogen Urine Norm (Negative); pH Urine 6.5 (5-7)
[2022-01-05 18:11] LABS: Add Urine Culture? No; Bacteria Urine TRACE /hpf; Squamous Epithelial Cell Urine RARE /hpf (0-5)
[2022-01-05 18:15] LABS: Amphetamines Screen Urine Negative (Negative); Barbiturates Screen Urine Negative (Negative); Benzodiazepines Screen Urine Negative (Negative); Cocaine Screen Urine Negative (Negative); Opiate Screen Urine Negative (Negative); PCP Screen Urine Negative (Negative); THC Screen Urine Positive (Negative)
--- NOTE | 2022-01-05 19:30 | PC.NURSE ---
41 yo female presented with severe headache. Has h/o htn but has not been on medication for 2+ months. She was severely hypertensive upon arrival. was given amlodipine, clonidine, labetalol, and hydralyzine without change in BP so started on Cardene drip. Currently on 5mg. Continues to be hypertensive. Will titrate up. Still has bad headache. Will obtain orders for pain medication. A/O x 4, even non labored respirations. No chest tenderness, abdomen soft non tender. no edema noted.
[2022-01-05] MEDS: TRAMadol 50 mg Tablet PO (20:00)
[2022-01-05 20:22] LABS: Estmated Average Glucose 94; Hemoglobin A1C 4.9 % (4.0-6.0)
[2022-01-05] MEDS: nicardipine 20 MG/200 ML PREMIX 100 MG IV (20:50)
[2022-01-06] VITALS (63 sets, daily range): BP systolic 118–192; BP diastolic 68–121; PULSE 69–120; RESP 12–31; TEMP 36.6; O2SAT 88–99
[2022-01-06] MEDS: acetaminophen 500 mg Tablet PO ×3 (01:42→15:02)
[2022-01-06 04:12] LABS: Blood Urea Nitrogen 7 mg/dL (6-20); Calcium 8.8 mg/dL (8.5-10.5); Carbon Dioxide 23 mmol/L (22-29); Chloride 101 mmol/L (98-107); Glomerular Filtration Rate 134.7 mL/min (90-130); Glucose 99 mg/dL (65-115); Osmolality Calculated 282 mOsm/kg (285-295); Sodium 137 mmol/L (136-145)
[2022-01-06 04:37] LABS: Anion Gap 16.8 (5-19); Potassium 3.8 mmol/L (3.5-5.1)
[2022-01-06] MEDS: losartan 50 mg Tablet 25 MG PO ×2 (08:00)
[2022-01-06] MEDS: nicardipine 20 MG/200 ML PREMIX 80 MG IV (08:30)
[2022-01-06] MEDS: chlorthalidone 25 mg Tablet 12.5 MG PO (10:16)
[2022-01-06] MEDS: amlodipine 10 mg Tablet PO (10:16)
[2022-01-06] MEDS: morphine IR 15 mg Tablet PO ×2 (10:16→18:56)
[2022-01-06] MEDS: nicardipine 20 MG/200 ML PREMIX 90 MG IV ×2 (11:06→15:04)
--- NOTE | 2022-01-06 11:21 | PC.NURSE ---
When this nurse instructed that the hospitalist wanted a BP on her left upper arm, patient started to cry and stated that she is bruised up there and that she will just end up taking it off.
--- NOTE | 2022-01-06 14:47 | PM.PN ---
Subjective Subjective: Patient is still on Cardene drip I have added hydralazine, increase the dose of losartan Will give her additional dose of losartan I have asked nurse to titrate down Cardene after addition of these 2 medications She has already received chlorthalidone and amlodipine Vitals/I&O/Wt Last Vital Signs Temp 98.1 F 01/05/22 11:38 Pulse 99 01/06/22 12:30 Resp 19 H 01/06/22 12:30 BP 138/103 01/06/22 12:30 Pulse Ox 95 01/06/22 12:30 O2 Del Method 01/06/22 08:57 01/05/22 01/06/22 01/06/22 22:59 06:59 14:59 Intake Total 376.667 / 376.667 98.333 / 475.000 313.5 / 313.5 Balance 376.667 / 376.667 98.333 / 475.000 313.5 / 313.5 Weight last 48 hrs Weight 97.522 kg Physical Exam Narrative: Awake and alert Complaining of headache Nonfocal neuro exam S1, S2 No signs of edema No signs of respiratory distress Awake and alert Nonfocal neuro exam Abdomen soft No signs of peritonitis Is complaining of back pain because of hard bed Data : 01/05/22 12:19 01/06/22 03:45 A&P Assessment and plan (1) Accelerated hypertension: Status: Acute Plan Patient is not ready to be discharged She is still on Cardene drip I am adding hydralazine, she has received amlodipine today, she will get additional dose of losartan, Titrate off Cardene drip Hydralazine, chlorthalidone, amlodipine, losartan Drug screen positive for marijuana We will give her Tylenol 3 for her headache No signs of press syndrome Full code Cardiac diet DVT prophylaxis Lovenox Attestations Medical Necessity Statement*: Discharge tomorrow if stable Time Spent in Patient Care: 30 Coding Level of Care Code Acute Solar Sales Estimator for Asim Johnson Diagnoses Accelerated hypertension I10
[2022-01-06] MEDS: hyDRALAzine 25 mg Tablet PO ×2 (15:02→21:01)
[2022-01-06] MEDS: losartan 50 mg Tablet PO (15:02)
[2022-01-06] MEDS: nicardipine 20 MG/200 ML PREMIX 70 MG IV (16:01)
--- NOTE | 2022-01-06 23:09 | USCV_ITS ---
Maria Victoria Ferrari Age: 41 Gender: F : 1980 Exam Date: 01/06/2022 09:29 Ordering Phys: Debra Olson MD Technologist: Juan Sorto [place] [facility] [place]: Hypertensive emergency BP: 149 / 97 HR: 91 Rhythm: Sinus Technical Quality: Adequate MEASUREMENTS (Male / Female) Normal Values 2D ECHO LV Diastolic Diameter PLAX 4.5 cm 4.2 - 5.9 / 3.9 - 5.3 cm LV Systolic Diameter PLAX 2.8 cm IVS Diastolic Thickness 1.0 cm 0.6 - 1.0 / 0.6 - 0.9 cm IVS Systolic Thickness 1.0 cm LVPW Diastolic Thickness 1.4 cm 0.6 - 1.0 / 0.6 - 0.9 cm LVPW Systolic Thickness 1.4 cm LVOT Diameter 2.0 cm LV Ejection Fraction 2D Teich 69.0 % LV Ejection Fraction MOD 2C 72.3 % LV Ejection Fraction 2C AL 72.9 % LA Diameter 3.4 cm LA Width 3.2 cm LA Height 4.3 cm RA Width 3.6 cm RA Height 4.3 cm Aorta at Sinotubular Diameter 2.7 cm IVC Diameter 1.6 cm M-MODE Aortic Annulus Diameter 2.9 cm LA Ao Ratio MM 1.2 MV E Point Septal Separation 0.3 cm DOPPLER AV Peak Velocity 220.0 cm/s LVOT Peak Velocity 139.0 cm/s AV Area Cont Eq vti 2.0 cm squared AV Area Cont Eq pk 2.0 cm squared MV Peak Velocity 136.0 cm/s MV Area PHT 3.9 cm squared Mitral E to A Ratio 0.8 MV E' Velocity 43.0 cm/s Mitral E to MV E' Ratio 8.7 Mitral E to LV E' Lateral Ratio 11.5 Mitral E to LV E' Septal Ratio 7.1 Right Atrial Pressure 3.0 mmHg RV Acceleration Time 0.2 s RV Ejection Time 0.3 s RV AcT/ET 0.6 FINDINGS Left Ventricle Normal left ventricular cavity size. Mildly increased left ventricular wall thickness. Normal left ventricular systolic function. Left ventricular ejection fraction is estimated at 70 %. Grade I diastolic dysfunction (abnormal relaxation filling pattern), normal to mildly elevated filling pressures. Right Ventricle Normal right ventricular size and systolic function. RVSP could not be calculated due to incomplete tricuspid regurgitation velocity profile. Right Atrium Normal right atrial size. There seems to be a small patent foramen ovale with [id number] shunt. Left Atrium Mildly increased left atrial size. Mitral Valve Mildly thickened mitral valve. No mitral valve stenosis. Trace mitral valve regurgitation. Aortic Valve Aortic valve not well visualized. No aortic valve stenosis. No aortic valve regurgitation. Tricuspid Valve Structurally normal tricuspid valve. No tricuspid valve stenosis. Trace to mild tricuspid valve regurgitation. Pulmonic Valve Pulmonic valve not well visualized. Severe pulmonary valve stenosis. Trace pulmonary valve regurgitation. Pericardium No pericardial effusion. Aorta Normal size aortic root and proximal ascending aorta. IVC Normal IVC dimension with >50% respiratory change of the inferior vena cava. CONCLUSIONS 1. Normal left ventricular cavity size and systolic function. Mildly increased left ventricular wall thickness. Left ventricular ejection fraction is estimated at 70 %. Grade I diastolic dysfunction (abnormal relaxation filling pattern), normal to mildly elevated filling pressures. 2. Normal right ventricular size and systolic function. 3. There seems to be a small patent foramen ovale with left-to- right shunt. 4. Trace to mild tricuspid valve regurgitation. 5. No prior similar studies to compare. Mariana Ortega MD (Electronically Signed) Final Date: 06 January 2022 12:46 S
[2022-01-06] MEDS: enoxaparin 40 mg/0.4 mL Syringe SUBCUT ×2 (23:38)
[2022-01-07] VITALS (11 sets, daily range): BP systolic 134–169; BP diastolic 84–112; PULSE 78–96; RESP 16–17; TEMP 36.6–36.9; O2SAT 92–96
[2022-01-07 05:27] LABS: Magnesium 1.9 mg/dL (1.7-2.3)
[2022-01-07] MEDS: ipratropium-albuterol 3 mL Neb INHALATION (07:44)
[2022-01-07] MEDS: amlodipine 10 mg Tablet PO (09:21)
[2022-01-07] MEDS: chlorthalidone 25 mg Tablet 12.5 MG PO (09:21)
[2022-01-07] MEDS: hyDRALAzine 25 mg Tablet PO ×2 (09:21→12:40)
[2022-01-07] MEDS: losartan 50 mg Tablet 100 MG PO (09:22)
[2022-01-07] MEDS: morphine IR 15 mg Tablet PO (10:11)
--- NOTE | 2022-01-07 10:30 | PM.DCS ---
Discharge Providers Date of Admission: 01/06/22 07:00 Date of Discharge: January 07, 2022 Attending Provider at Admission: Debra Olson MD Attending Provider at Discharge: Debra Olson MD Primary Care Provider: Betsy Mitchell DO Diagnoses at Discharge Discharge Diagnosis (1) Accelerated hypertension: Status: Acute Reason for Visit Reason for Visit: pain in the back of neck and puffy in face. Hospital Course Hospital Course 41-year-old female who is an active smoker, noncompliant, stopped taking her antihypertensive regimen few months ago presented with hypertensive emergency. Troponin without significant elevation, echo showed preserved ejection fraction, diastolic dysfunction, chest x-ray was unremarkable, TSH normal, no electrolyte imbalance. She did not respond to IV pushes of antihypertensive regimen hence decision was made to start on Cardene drip it took us about more than 24 hours to titrate off Cardene drip and switch her to p.o. regimen. At the time of discharge she will get amlodipine, chlorthalidone, hydralazine and losartan. She will also get blood pressure kit at home. Physical Exam Narrative: Nonfocal neuro exam S1, S2 Abdomen soft Smoker's cough Satting well on room air No signs of cushingoid appearance No signs of thyrotoxicosis Awake and alert Pleasant and cooperative Discharge Data Studies Completed and Pending Completed Studies During Hospitalization Category Date Time Status XR chest 1V portable [id number] Stat Exams 01/05/22 15:38 Completed CV. echo complete* [id number] Routine Ultrasound 01/06/22 23:09 Completed Radiology Impressions Chest X-Ray 01/05/22 15:38 IMPRESSION: 1. Negative chest. Laboratory Results WBC 7.1 10^3/uL (4.0-10.0) 01/05/22 12:19 RBC 4.28 10^6/uL (4.1-5.3) 01/05/22 12:19 Hgb 12.9 g/dL (11.5-15.3) 01/05/22 12:19 Hct 40.2 % (37.0-47.0) 01/05/22 12:19 MCV 93.9 fl (81-99) 01/05/22 12:19 MCH 30.1 pg (28.0-34.0) 01/05/22 12:19 MCHC 32.1 g/dL (30.0-36.0) 01/05/22 12:19 RDW 13.6 % (12.1-15.1) 01/05/22 12:19 Plt Count 267 10^3/cmm (130-400) 01/05/22 12:19 MPV 10.9 fL (7.4-10.4) H 01/05/22 12:19 Neut % (Auto) 58.9 % 01/05/22 12:19 Lymph % (Auto) 29.5 % 01/05/22 12:19 [place] % (Auto) 8.8 % 01/05/22 12:19 Eos % (Auto) 2.0 % 01/05/22 12:19 Baso % (Auto) 0.4 % 01/05/22 12:19 Neut # (Auto) 4.17 10^3/uL (1.8-7.7) 01/05/22 12:19 Lymph # (Auto) 2.1 10^3/uL (0.8-4.8) 01/05/22 12:19 [place] # (Auto) 0.6 10^3/uL (0.2-0.9) 01/05/22 12:19 Eos # (Auto) 0.1 10^3/uL (0.0-0.8) 01/05/22 12:19 Baso # (Auto) 0.0 10^3/uL (0.0-0.1) 01/05/22 12:19 Nucleated RBC % (auto) 0 % 01/05/22 12:19 Nucleated RBCs # 0.0 /100WBC 01/05/22 12:19 Sodium 137 mmol/L (136-145) 01/06/22 03:45 Potassium 3.8 mmol/L (3.5-5.1) 01/06/22 03:45 Chloride 101 mmol/L (98-107) 01/06/22 03:45 Carbon Dioxide 23 mmol/L (22-29) 01/06/22 03:45 Anion Gap 16.8 (5-19) 01/06/22 03:45 BUN 7 mg/dL (6-20) 01/06/22 03:45 Creatinine 0.5 mg/dL (0.5-0.9) 01/06/22 03:45 GFR Calculation 134.7 mL/min (90-130) H 01/06/22 03:45 Glucose 99 mg/dL (65-115) 01/06/22 03:45 Estimat Average Glucose 94 01/05/22 12:19 Hemoglobin A1c 4.9 % (4.0-6.0) 01/05/22 12:19 Calculated Osmolality 282 mOsm/kg (285-295) L 01/06/22 03:45 Calcium 8.8 mg/dL (8.5-10.5) 01/06/22 03:45 Magnesium 1.9 mg/dL (1.7-2.3) 01/07/22 04:45 TSH 1.22 uIU/mL (0.27-4.20) 01/05/22 12:19 Urine Color Yellow (Yellow) 01/05/22 17:19 Urine Appearance Clear (CLEAR) 01/05/22 17:19 Urine pH 6.5 (5-7) 01/05/22 17:19 Ur Specific [place] 1.010 (1.005-1.030) 01/05/22 17:19 Urine Protein Trace (Negative) 01/05/22 17:19 Urine Glucose (UA) Norm (Normal) 01/05/22 17:19 Urine Ketones Negative (Negative) 01/05/22 17:19 Urine Blood Neg (Negative) 01/05/22 17:19 Urine Nitrate Negative (Negative) 01/05/22 17:19 Urine Bilirubin Neg (Negative) 01/05/22 17:19 Urine Urobilinogen Norm mg/dL (Negative) 01/05/22 17:19 Ur Leukocyte Esterase Negative (Negative) 01/05/22 17:19 Urine RBC None /hpf (0-2) 01/05/22 17:19 Urine WBC None /hpf (0-5) 01/05/22 17:19 Ur Squamous Epith Cells Rare /hpf (0-5) 01/05/22 17:19 Amorphous Sediment Not Reportable 01/05/22 17:19 Urine Bacteria Trace /hpf (NONE) 01/05/22 17:19 Urine Opiates Screen Negative ng/mL (Negative) 01/05/22 17:19 Ur Barbiturates Screen Negative ng/mL (Negative) 01/05/22 17:19 Ur Phencyclidine Scrn Negative ng/mL (Negative) 01/05/22 17:19 Ur Amphetamines Screen Negative ng/mL (Negative) 01/05/22 17:19 U Benzodiazepines Scrn Negative ng/mL (Negative) 01/05/22 17:19 Urine Cocaine Screen Negative ng/mL (Negative) 01/05/22 17:19 U Marijuana (THC) Screen Positive ng/mL (Negative) H 01/05/22 17:19 Vitals Last Vital Signs Temp 98.0 F 01/07/22 08:00 Pulse 78 01/07/22 08:00 Resp 16 01/07/22 10:11 BP 149/96 01/07/22 09:22 Pulse Ox 95 01/07/22 10:11 O2 Del Method 01/07/22 08:00 Discharge Plan Discharge Patient Disposition: Home Condition: Stable Prescriptions: New losartan 50 mg Tablet 100 mg PO DAILY Qty: 90 0RF hydralazine 25 mg Tablet 25 mg PO TID Qty: 90 3RF chlorthalidone 25 mg Tablet 25 mg PO DAILY Qty: 60 0RF amlodipine 10 mg Tablet 10 mg PO DAILY Qty: 60 0RF (DME) Blood Pressure Kit Kit See Rx Instructions .Route Qty: 1 0RF Rx Instructions: As directed isosorbide dinitrate 10 mg tablet 5 mg PO BID Qty: 60 3RF Rx Instructions: allow nitrate-free interval of 12-14 hrs per 24-hr period Continued acetaminophen [Tylenol Extra Strength] 500 mg tablet 500 mg PO Q6H PRN (Reason: Pain) albuterol sulfate 90 mcg/actuation HFA aerosol inhaler 1 inh inhalation QID Qty: 8.5 3RF Discharge Orders: Discharge Order (Routine); Ordered 01/07/22 Ordered By: Debra Olson Referrals: Betsy Mitchell DO [Primary Care Provider] - 01/08/22 10:30 am (You will be seeing the nurse practitioner at this appointment. ) Discharge Diet: Cardiac Discharge Activity: Increase activity as tolerated Patient Instructions: Chlorthalidone (By mouth), Hydralazine (By mouth), Amlodipine (By mouth), Losartan (By mouth), Chronic Hypertension (GEN), Opioid Safety Discharge Attestations Time Spent in Discharge Care*: less than 30 min Quality Metrics Clinical Quality Measures [ No reported AMI, CVA or VTE this stay] Coding Level of Care Code Acute Chg FW DC note Diagnoses Accelerated hypertension I10
--- NOTE | 2022-01-07 13:45 | PC.NURSE ---
Discussed discharge, follow up appointments and new medications with patient. Verbalized understanding.
--- NOTE | 2022-01-08 20:09 | PC.NURSE ---
Ms. Ferrari called because her eyes were hurting, wondering if it is my new B/P medications . Reviewed Discharge medications with patient. Pt took her B?P reported it 195/125. Counseled pt to come into ED and be seen, her B/P too high, it could be cause her eye pain.
== END 2022-01-07 13:48 | disposition home or self-care (01) ==
LOC: ER 17:42 → ER IP 01-06 01:01 → MEDSURG 01-06 18:10
PROVIDERS: Admitting Provider Internal Medicine; Emergency Provider Family Medicine; PCP Internal Medicine; Visit Provider Internal Medicine
DX: I10 Essential (primary) hypertension (principal); Z87.09 Personal history of other diseases of the respiratory system; J20.9 Acute bronchitis, unspecified; J21.9 Acute bronchiolitis, unspecified; F17.210 Nicotine dependence, cigarettes, uncomplicated; Z91.14 Patient's other noncompliance with medication regimen; Z86.16 Personal history of COVID-19
CPT/HCPCS: 36415; 71045; 80048; 80306; 81001; 83036; 83735; 84443; 85025; 93005; 93306; 94640; 96372; 96374; 96375; 96376; 99285; G0378; J0360; J1650; J1885; J2550; J3490

== ENCOUNTER 2022-01-08 20:38 | Emergency (ER) | payer SELFPAY ==
[2022-01-08 21:03] VITALS: BP 191/124; PULSE 99; RESP 16; TEMP 36.8; O2SAT 101; BMI 36.0
--- NOTE | 2022-01-08 21:18 | CTR_ITS ---
PROCEDURE INFORMATION: Exam: CT Head Without Contrast Exam date and time: 01/08/2022 9:36 PM Age: 41 years old Clinical indication: Pain; Other: Hypertensive; Patient HX: C/O severe headache with hypertension. Discharged from hospital yesterday for uncontrolled hypertension. ; Additional info: JACQUES TECHNIQUE: Imaging protocol: Computed tomography of the head without contrast. Radiation optimization: All CT scans at this facility use at least one of these dose optimization techniques: automated exposure control; mA and/or kV adjustment per patient size (includes targeted exams where dose is matched to clinical indication); or iterative reconstruction. COMPARISON: No relevant prior studies available. RADIATION DOSE METRICS: Total DLP (mGy-cm): 1042.18 FINDINGS: Brain: Normal. No hemorrhage. Unremarkable white matter. No mass effect. Cerebral ventricles: No ventriculomegaly. Paranasal sinuses: Visualized sinuses are unremarkable. No fluid levels. Mastoid air cells: Visualized mastoid air cells are well aerated. Bones/joints: Unremarkable. No acute fracture. Soft tissues: Unremarkable. CT/CT head wo con* [id number] IMPRESSION: No acute intracranial abnormality.
--- NOTE | 2022-01-08 21:18 | XRR_ITS ---
PROCEDURE INFORMATION: Exam: XR Chest Exam date and time: 01/08/2022 9:23 PM Age: 41 years old Clinical indication: Condition or disease; Other: Hypertension; Additional info: HTN TECHNIQUE: Imaging protocol: Radiologic exam of the chest. Views: 1 view. COMPARISON: CR XR chest 1V portable [id number] 01/05/2022 4:10 PM FINDINGS: Lungs: Unremarkable. No consolidation. Pleural spaces: Unremarkable. No pleural effusion. No pneumothorax. Heart/Mediastinum: Unremarkable. No cardiomegaly. Bones/joints: Unremarkable. XR/XR chest 1V portable [id number] IMPRESSION: No acute findings.
--- NOTE | 2022-01-08 21:21 | CTR_ITS ---
PROCEDURE INFORMATION: Exam: CTA Head With Contrast, Arteriography Exam date and time: 01/08/2022 9:42 PM Age: 41 years old Clinical indication: Pain; Other: Hypertensive; Patient HX: C/O severe headache with hypertension. Discharged from hospital yesterday for uncontrolled hypertension. ; Additional info: JACQUES TECHNIQUE: Imaging protocol: Computed tomographic angiography of the head with contrast. Exam focused on the arteries. 3D rendering (Not supervised by radiologist): MIP and/or 3D reconstructed images were created by the technologist. Radiation optimization: All CT scans at this facility use at least one of these dose optimization techniques: automated exposure control; mA and/or kV adjustment per patient size (includes targeted exams where dose is matched to clinical indication); or iterative reconstruction. Contrast material: OMNI 350; Contrast volume: 95 ml; Contrast route: INTRAVENOUS (IV); COMPARISON: CT head wo con* [id number] 01/08/2022 9:36 PM RADIATION DOSE METRICS: Total DLP (mGy-cm): 482.52 FINDINGS: ANTERIOR CIRCULATION: Right internal carotid artery: Unremarkable. Intracranial segment is patent with no significant stenosis. No aneurysm. Right middle cerebral artery: Unremarkable. No occlusion or significant stenosis. No aneurysm. Right anterior cerebral artery: Unremarkable. No occlusion or significant stenosis. No aneurysm. Left internal carotid artery: Unremarkable. Intracranial segment is patent with no significant stenosis. No aneurysm. Left middle cerebral artery: Unremarkable. No occlusion or significant stenosis. No aneurysm. Left anterior cerebral artery: Unremarkable. No occlusion or significant stenosis. No aneurysm. POSTERIOR CIRCULATION: Right vertebral artery: Unremarkable. No occlusion or significant stenosis. No aneurysm. Left vertebral artery: Unremarkable. No occlusion or significant stenosis. No aneurysm. Basilar artery: Unremarkable. No occlusion or significant stenosis. No aneurysm. Right posterior cerebral artery: Unremarkable. No occlusion or significant stenosis. No aneurysm. Left posterior cerebral artery: Unremarkable. No occlusion or significant stenosis. No aneurysm. Brain: No definite mass, mass effect, or midline shift. Cerebral ventricles: No ventriculomegaly. Bones/joints: Unremarkable. No acute fracture. Soft tissues: Unremarkable. PROCEDURE INFORMATION: Exam: CTA Neck With Contrast Exam date and time: 01/08/2022 9:42 PM Age: 41 years old Clinical indication: Pain; Other: Hypertensive; Patient HX: C/O severe headache with hypertension. Discharged from hospital yesterday for uncontrolled hypertension. ; Additional info: JACQUES TECHNIQUE: Imaging protocol: Computed tomographic angiography of the neck with contrast. 3D rendering (Not supervised by radiologist): MIP and/or 3D reconstructed images were created by the technologist. Radiation optimization: All CT scans at this facility use at least one of these dose optimization techniques: automated exposure control; mA and/or kV adjustment per patient size (includes targeted exams where dose is matched to clinical indication); or iterative reconstruction. Contrast material: OMNI 350; Contrast volume: 95 ml; Contrast route: INTRAVENOUS (IV); COMPARISON: CTA Chest-Pulmonary Emb [id number] 05/20/2019 8:57 AM RADIATION DOSE METRICS: Total DLP (mGy-cm): 482.52 FINDINGS: Right common carotid artery: No stenosis. No dissection or occlusion. Right internal carotid artery: No stenosis of the extracranial segment. No dissection or occlusion. Right external carotid artery: No occlusion or stenosis of the origin. Left common carotid artery: No stenosis. No dissection or occlusion. Left internal carotid artery: No stenosis of the extracranial segment. No dissection or occlusion. Left external carotid artery: No occlusion or stenosis of the origin. Right vertebral artery: No stenosis. No dissection or occlusion. Left vertebral artery: No stenosis. No dissection or occlusion. Soft tissues: Normal. No significant soft tissue swelling. Bones/joints: No acute fracture. CT/CT angio headneck* [id number] IMPRESSION: No large vessel stenosis or occlusion. IMPRESSION: No stenosis or occlusion. REFERENCES: NASCET CRITERIA. The degree of internal carotid artery stenosis is based on NASCET criteria. Normal is no stenosis. Mild is less than 50% stenosis. Moderate is 50-69% stenosis. Severe is 70% to 99% stenosis. Total occlusion is no detectable patent lumen.
--- NOTE | 2022-01-08 21:22 | W.ED.GENADLT ---
HPI - General Adult General: Chief complaint: General Medical Stated complaint: High BP Time Seen by Provider: 01/08/22 21:14 Source: patient Mode of arrival: ambulatory Limitations: no limitations History of Present Illness: 41-year-old female who recently was diagnosed hypertension and had to be admitted to the hospital on a drip she states she was discharged yesterday she states that she has been having a headache she rates a 6 out of 10 along with hypertension she is hypertensive here with 190/124 she denies any fever denies any worsening improving factors. She denies any chest pain. Associated symptoms: Reports headache(s); Deny chest pain, dyspnea, nausea, rash or vomiting Review of Systems Const: Denies: fever(s), chills, body aches or change in appetite Eyes: Denies: blurry vision or eye discomfort ENMT: Denies: throat pain or dental pain Card: Denies: chest pain Resp: Denies: dyspnea GI: Denies: abdominal pain, nausea, vomiting or diarrhea : Denies: dysuria Musc: Denies: neck pain or back pain Skin/Breast: Denies: rash Neuro: Reports: headache(s) Psych: Denies: depression James/Lymph: Denies: easy bruising All/Imm: Denies: urticaria PFSH ED PFSH: Medical History Acute bronchitis and bronchiolitis COVID Positive test 06/18/2021. Dental caries Essential (primary) hypertension Hx of intrinsic asthma Hypertension, uncontrolled Surgical History History of umbilical hernia repair History of umbilical hernia repair (05/28/20) Recurrent Status post right inguinal hernia repair Family History Mother Cancer Lung Grandmother Cancer Breast Social History Smoking and tobacco status: current every day smoker Alcohol intake: current Household members: significant other Current gender identity: Female Female Reproductive History: Date of last menstrual period: 01/07/22 Physical Exam Const: COMMON NORMALS: no acute distress, patient oriented x3 and healthy appearing HENMT: COMMON NORMALS: normocephalic and atraumatic HEAD & SCALP: normocephalic and atraumatic Eye: COMMON NORMALS: Equal, round and reactive pupils present and EOMs intact bilaterally PUPIL: Yes Equal, round and reactive pupils present Neck/C-Spine: COMMON NORMALS: full ROM and supple Chest: COMMONS NORMALS: normal inspection of the chest and normal palpation of entire chest wall Resp: COMMON NORMALS: normal respiratory effort, No retractions, No use of accessory muscles and clear to auscultation bilaterally AUSCULTATION: clear to auscultation bilaterally Cardio: COMMON NORMALS: regular rate, regular rhythm and No murmurs present (Cardio) RATE: regular rate RHYTHM: regular rhythm GI: COMMON NORMALS: Normal to inspection, nondistended, normoactive bowel sounds present, Soft to palpation, non-tender and no masses PALPATION: Yes Soft to palpation Extremity: COMMON NORMALS: normal to inspection and full ROM Neuro: COMMON NORMALS: patient oriented x3, moves all extremities and no focal motor deficits Psych: COMMON NORMALS: mental status grossly normal, Normal thought process present and cooperative THOUGHT PROCESS: Normal thought process present Skin: COMMON NORMALS: no rashes or lesions noted and no wounds GENERAL SKIN EXAM: no rashes or lesions noted Course Vital Signs: Vital signs: Vital Signs Temperature 98.2 F 01/08/22 21:03 Pulse Rate 83 01/08/22 23:01 Respiratory Rate 16 01/08/22 23:01 Blood Pressure 139/98 01/08/22 23:01 Pulse Oximetry 98 01/08/22 23:01 Oxygen Delivery Me thod 01/08/22 23:01 [facility] - General Adult Medical Decision Making Patient presents with a headache likely from her hypertension her blood pressure here is improved so is her headache head CT along with CT angio are normal no signs of aneurysm patient is stable for discharge is to follow-up PCP and return if worsening she understands and agrees to plan. Lab Data : 01/08/22 21:30 01/08/22 21:30 Radiology Impressions Chest X-Ray 01/08/22 21:18 IMPRESSION: No acute findings. Head CT 01/08/22 21:18 IMPRESSION: No acute intracranial abnormality. Head/Neck CTA 01/08/22 21:21 IMPRESSION: No large vessel stenosis or occlusion. IMPRESSION: No stenosis or occlusion. REFERENCES: NASCET CRITERIA. The degree of internal carotid artery stenosis is based on NASCET criteria. Normal is no stenosis. Mild is less than 50% stenosis. Moderate is 50-69% stenosis. Severe is 70% to 99% stenosis. Total occlusion is no detectable patent lumen. Laboratory Results WBC 8.8 10^3/uL (4.0-10.0) 01/08/22 21:30 RBC 4.57 10^6/uL (4.1-5.3) 01/08/22 21:30 Hgb 14.0 g/dL (11.5-15.3) 01/08/22 21:30 Hct 42.6 % (37.0-47.0) 01/08/22: MCV 93.2 fl (81-99) 01/08/22 21: MCH 30.6 pg (28.0-34.0) 01/08/22 21: MCHC 32.9 g/dL (30.0-36.0) 01/08/22: RDW 13.7 % (12.1-15.1) 01/08/22 21: Plt Count 300 10^3/cmm (130-400) 01/08/22 21:30 MPV 10.6 fL (7.4-10.4) H 01/08/22 21:30 Neut % (Auto) 57.6 % 01/08/22 21:30 Lymph % (Auto) 30.5 % 01/08/22 21:30 [place] % (Auto) 9.6 % 01/08/22 21: Eos % (Auto) 1.6 % 01/08/22 21:30 Baso % (Auto) 0.5 % 01/08/22 21:30 Neut # (Auto) 5.09 10^3/uL (1.8-7.7) 01/08/22: Lymph # (Auto) 2.7 10^3/uL (0.8-4.8) 01/08/22 21:30 [place] # (Auto) 0.9 10^3/uL (0.2-0.9) 01/08/22 21:30 Eos # (Auto) 0.1 10^3/uL (0.0-0.8) 01/08/22 21:30 Baso # (Auto) 0.0 10^3/uL (0.0-0.1) 01/08/22 21:30 Nucleated RBC % (auto) 0 % 01/08/22 21:30 Nucleated RBCs # 0.0 /100WBC 01/08/22 21:30 Sodium 136 mmol/L (136-145) 01/08/22 21:30 Potassium 4.1 mmol/L (3.5-5.1) 01/08/22 21:30 Chloride 98 mmol/L (98-107) 01/08/22 21:30 Carbon Dioxide 25 mmol/L (22-29) 01/08/22 21:30 Anion Gap 17.1 (5-19) 01/08/22 21:30 BUN 18 mg/dL (6-20) 01/08/22 21:30 Creatinine 0.7 mg/dL (0.5-0.9) 01/08/22 21:30 GFR Calculation 91.3 mL/min (90-130) 01/08/22 21:30 Glucose 93 mg/dL (65-115) 01/08/22 21:30 Calculated Osmolality 284 mOsm/kg (285-295) L 01/08/22 21:30 Calcium 9.2 mg/dL (8.5-10.5) 01/08/22 21:30 Total Bilirubin 0.2 mg/dL (0.15-1.2) 01/08/22 21:30 AST 15 U/L (0-32) 01/08/22 21:30 ALT 16 U/L (0-33) 01/08/22 21:30 Alkaline Phosphatase 76 U/L (35-105) 01/08/22 21:30 Total Protein 6.6 g/dL (6.6-8.7) 01/08/22 21:30 Albumin 4.2 g/dL (3.5-5.2) 01/08/22 21:30 Globulin 2.4 g/dL (1.3-4.6) 01/08/22 21:30 EKG Data EKG 1: I personally reviewed and interpreted this EKG as follows: EKG interpretation date: 01/08/22 EKG interpretation time: 22:03 Interpretation: nsr hr [address] or t wave abnormalities qrs 91 qtc 441 Computer generated interpretation: Chest X-Ray 01/08/22 21:18 IMPRESSION: No acute findings. Head CT 01/08/22 21:18 IMPRESSION: No acute intracranial abnormality. Head/Neck CTA 01/08/22 21:21 IMPRESSION: No large vessel stenosis or occlusion. IMPRESSION: No stenosis or occlusion. REFERENCES: NASCET CRITERIA. The degree of internal carotid artery stenosis is based on NASCET criteria. Normal is no stenosis. Mild is less than 50% stenosis. Moderate is 50-69% stenosis. Severe is 70% to 99% stenosis. Total occlusion is no detectable patent lumen. Discharge Plan Discharge Patient Disposition: Home Clinical Impression: Headache Hypertension Qualifiers: Hypertension type: unspecified Qualified Code(s): I10 - Essential (primary) hypertension Condition: Stable Prescriptions: No Action acetaminophen [Tylenol Extra Strength] 500 mg tablet 500 mg PO Q6H PRN (Reason: Pain) losartan 50 mg Tablet 100 mg PO DAILY Qty: 90 0RF hydralazine 25 mg Tablet 25 mg PO TID Qty: 90 3RF chlorthalidone 25 mg Tablet 25 mg PO DAILY Qty: 60 0RF amlodipine 10 mg Tablet 10 mg PO DAILY Qty: 60 0RF albuterol sulfate 90 mcg/actuation HFA aerosol inhaler 1 inh inhalation QID Qty: 8.5 3RF (DME) Blood Pressure Kit Kit See Rx Instructions .Route Qty: 1 0RF Rx Instructions: As directed isosorbide dinitrate 10 mg tablet 5 mg PO BID Qty: 60 3RF Rx Instructions: allow nitrate-free interval of 12-14 hrs per 24-hr period Discharge Orders: Discharge ED (Routine); Ordered 01/08/22 Ordered By: Jamison Madrid Referrals: Betsy Mitchell, DO [Primary Care Provider] - 1-3 days Discharge Diet: Advance as tolerated Discharge Activity: Resume usual activity Patient Instructions: Hypertension (ED), General Headache (ED) Coding Level of Care Code ED Associate Chief Nurse for Chg Fwd Exam Comprehensive
[2022-01-08] MEDS: labetalol 5 mg/mL SDV 20mL 10 MG IVP (21:28)
[2022-01-08] MEDS: diphenhydrAMINE 50 mg/mL SDV 1mL IVP (21:28)
[2022-01-08] MEDS: metoclopramide 5 mg/mL SDV 2 mL 10 MG IVP (21:28)
[2022-01-08] MEDS: iohexol 350 mg/mL 100 mL Btl IV (21:36)
[2022-01-08 21:53] VITALS: BP 137/79; PULSE 80; RESP 18
--- NOTE | 2022-01-08 22:03 | ECG_ITS ---
[facility] Test Date: 2022-01-08 Pat Name: Maria Victoria Ferrari Department: Room: Gender: Female [employer]: : 1980 Requested By: Jamison Madrid Order Number: [id number] Robbin MD: Noe Younger M.D. Measurements Intervals [place] Rate: 79 P: 68 [place]: 157 QRS: 52 QRSD: 91 T: 180 QT: 412 QTc: 474 Interpretive Statements SINUS RHYTHM MODERATE T-WAVE ABNORMALITY, CONSIDER LATERAL ISCHEMIA [-0.1+ mV T-WAVE IN I/aVL/V5/V6] MODERATE T-WAVE ABNORMALITY, CONSIDER INFERIOR ISCHEMIA [-0.1+ mV T-WAVE IN II/aVF] Compared to ECG 01/05/2022 16:22:27 Possible ischemia now present T-wave abnormality still present Electronically Signed On 01-08-2022 22:42:35 CDT by Noe Younger M.D. [id number]
[2022-01-08 22:06] LABS: Basophils % 0.5 %; Eosinophils # 0.1 10^3/uL (0.0-0.8); Eosinophils % 1.6 %; Hematocrit 42.6 % (37.0-47.0); Lymphocytes # 2.7 10^3/uL (0.8-4.8); Lymphocytes % 30.5 %; Mean Corpuscular HGB Conc 32.9 g/dL (30.0-36.0); Mean Corpuscular Hemoglobin 30.6 pg (28.0-34.0); Mean Corpuscular Volume 93.2 fl (81-99); Mean Platelet Volume 10.6 fL (7.4-10.4); Monocytes # 0.9 10^3/uL (0.2-0.9); Monocytes % 9.6 %; Neutrophils # 5.09 10^3/uL (1.8-7.7); Neutrophils % 57.6 %; Nucleated Red Blood Cells % 0 %; Platelet Count 300 10^3/cmm (130-400); Red Blood Count 4.57 10^6/uL (4.1-5.3); Red Cell Distribution Width 13.7 % (12.1-15.1); White Blood Count 8.8 10^3/uL (4.0-10.0)
[2022-01-08 22:38] LABS: Alanine Aminotransferase 16 U/L (0-33); Albumin Level 4.2 g/dL (3.5-5.2); Alkaline Phosphatase 76 U/L (35-105); Aspartate Amino Transferase 15 U/L (0-32); Blood Urea Nitrogen 18 mg/dL (6-20); Calcium 9.2 mg/dL (8.5-10.5); Carbon Dioxide 25 mmol/L (22-29); Chloride 98 mmol/L (98-107); Globulin 2.4 g/dL (1.3-4.6); Glomerular Filtration Rate 91.3 mL/min (90-130); Glucose 93 mg/dL (65-115); Osmolality Calculated 284 mOsm/kg (285-295); Sodium 136 mmol/L (136-145); Total Bilirubin 0.2 mg/dL (0.15-1.2); Total Protein 6.6 g/dL (6.6-8.7)
[2022-01-08 22:39] LABS: Anion Gap 17.1 (5-19); Potassium 4.1 mmol/L (3.5-5.1)
[2022-01-08 23:00] VITALS: BP 144/93; PULSE 110; RESP 20; O2SAT 94
[2022-01-08 23:01] VITALS: BP 139/98; PULSE 83; RESP 16; O2SAT 98
[2022-01-09 00:10] VITALS: BP 139/98; PULSE 83; RESP 16; O2SAT 98
== END 2022-01-09 00:11 | disposition home or self-care (01) ==
PROVIDERS: Emergency Provider Emergency Medicine; PCP Internal Medicine
DX: I10 Essential (primary) hypertension (principal); R51.9 Headache, unspecified; F17.210 Nicotine dependence, cigarettes, uncomplicated
CPT/HCPCS: 70450; 70496; 70498; 71045; 80053; 85025; 93005; 96374; 96375; 99285; J1200; J2765; J3490; Q9967

== ENCOUNTER 2023-03-26 19:50 | Emergency (ER) | payer MEDICAID, SELFPAY ==
[2023-03-26 20:12] VITALS: BP 139/92; PULSE 105; RESP 18; TEMP 36.5; O2SAT 97; BMI 33.7
--- NOTE | 2023-03-26 21:19 | XRR_ITS ---
PROCEDURE INFORMATION: Exam: XR Abdomen Exam date and time: 03/26/2023 10:02 PM Age: 42 years old Clinical indication: Abdominal pain; Prior surgery; Surgery date: 6+ months; Surgery type: Inguinal hernia surgery; Additional info: Abd pain TECHNIQUE: Imaging protocol: Radiologic exam of the abdomen. Views: Frontal supine view of the abdomen. 1 View. COMPARISON: CT abdomen pelvis w con* [id number] 04/28/2020 12:47 AM FINDINGS: Gastrointestinal tract: Mild constipation. Bones/joints: Unremarkable. XR/XR abdomen 1V* [id number] IMPRESSION: Mild constipation without bowel dilation to indicate obstruction.
--- NOTE | 2023-03-26 21:19 | W.ED.ABDPA2 ---
HPI - Abdominal Pain General: Chief Complaint: Abdominal Pain Stated Complaint: groan pain Time Seen by Provider: 03/26/23 20:19 History of Present Illness: 42-year-old female presents emergency department complaints of right inguinal pain. She states earlier today she bent over and felt a sharp burning type sensation in the area of her previous right inguinal hernia repair. She states that her hernia repair was 2 to 3 years ago and she has not had any difficulty since that time but today feels like there is an area that is abnormal. She states the pain at that time was a 5 out of 10 and burning type pain. She denies numbness or tingling to the extremity. She denies nausea vomiting fevers or chills. She states that she felt something pull and is concerned that the previous surgical repair may have been compromised today. Review of Systems General: Reports: 10 or more systems reviewed and unremarkable except in HPI and below GI: Reports: abdominal pain [facility] ED PFSH: Medical History Acute bronchitis and bronchiolitis COVID Positive test 06/18/2021. Dental caries Essential (primary) hypertension Hx of intrinsic asthma Hypertension, uncontrolled Surgical History History of umbilical hernia repair History of umbilical hernia repair (05/28/20) Recurrent Status post right inguinal hernia repair Family History Mother Cancer Lung Grandmother Cancer Breast Social History Smoking and tobacco/nicotine status: current every day tobacco/nicotine user Alcohol intake: current Household members: significant other Current gender identity: Female Physical Exam Const: COMMON NORMALS: no acute distress, patient oriented x3 and alert HENMT: COMMON NORMALS: normocephalic and moist oral mucous membranes HEAD & SCALP: normocephalic Eye: COMMON NORMALS: Equal, round and reactive pupils present and conjunctivae normal CONJUNCTIVA: Yes conjunctivae normal PUPIL: Yes Equal, round and reactive pupils present Neck/C-Spine: COMMON NORMALS: full ROM and supple Resp: COMMON NORMALS: normal respiratory effort and clear to auscultation bilaterally AUSCULTATION: clear to auscultation bilaterally Cardio: COMMON NORMALS: regular rate, regular rhythm, S1 normal heart sound present, S2 normal heart sound present and Peripheral pulses 2+ throughout RATE: regular rate RHYTHM: regular rhythm HEART SOUNDS: S1 normal heart sound present and S2 normal heart sound present PERIPHERAL PULSES: Peripheral pulses 2+ throughout GI: COMMON NORMALS: Normal to inspection, nondistended, normoactive bowel sounds present, Soft to palpation and non-tender PALPATION: Yes Soft to palpation and No Hernia present : COMMON NORMALS: Yes no CVA tenderness BLADDER/KIDNEY EXAM: Yes no CVA tenderness EXTERNAL FEMALE EXAM: No Hernia present Back/Pelvis: COMMON NORMALS: no CVA tenderness and thoracic and lumbar spine normal to inspection Extremity: COMMON NORMALS: normal to inspection, full ROM and capillary refill normal Neuro: COMMON NORMALS: patient oriented x3, moves all extremities and no sensory deficits noted SENSORIUM/ORIENTATION: Yes alert Psych: COMMON NORMALS: mental status grossly normal, Normal thought process present and cooperative THOUGHT PROCESS: Normal thought process present Skin: COMMON NORMALS: no rashes or lesions noted GENERAL SKIN EXAM: no rashes or lesions noted Course Vital Signs: Vital signs: Vital Signs Temperature 97.7 F 03/26/23 20:12 Pulse Rate 105 H 03/26/23 20:12 Respiratory Rate 18 03/26/23 20:12 Blood Pressure 139/92 03/26/23 20:12 Pulse Oximetry 97 03/26/23 20:12 Oxygen Delivery Me thod Room Air 03/26/23 20:12 MDM - Abdominal Pain Medical Decision Making Physical exam completed, laboratory examination reviewed, radiograph examination reviewed, patient's potassium is significantly low we will provide her p.o. potassium replacement. Given her pain we will also provide her IV Toradol Medical Records I reviewed the patient's medical records. Lab Data I reviewed the patient's lab results. 03/26/23 22:18 03/26/23 22:18 Labs/Radiology: Radiology Impressions Abdomen X-Ray 03/26/23 21:19 IMPRESSION: Mild constipation without bowel dilation to indicate obstruction. Abdomen/Pelvis CT 03/26/23 22:08 IMPRESSION: 1. Sigmoid colon wall thickening may be due to nondistention, please correlate for a colitis. 2. Right ovary 18 mm peripherally enhancing cyst may reflect a partially collapsed follicle. 3. Diverticulosis without diverticulitis. 4. Left lower lobe 6.7 mm pulmonary nodule somewhat visualized, dedicated chest CT advised for further evaluation. 5. Right lower lobe atelectasis. 6. Hepatic steatosis. Laboratory Results WBC 9.96 10^3/uL (3.29-11.43) 03/26/23 22:18 RBC 4.09 10^6/uL (3.85-5.65) 03/26/23 22:18 Hgb 13.20 g/dL (11.27-16.99) 03/26/23 22:18 Hct 38.0 % (36-47) 03/26/23 22:18 MCV 92.9 fl (85-98) 03/26/23 22:18 MCH 32.3 pg (27-33) 03/26/23:18 MCHC 34.7 g/dL (30-55) 03/26/23 22:18 RDW 12.9 % (12.1-15.1) 03/26/23 22:18 Plt Count 303 10^3/cmm (157-399) 03/26/23 22:18 MPV 9.7 fL (7.4-10.4) 03/26/23 22:18 Neut % (Auto) 66.0 % 03/26/23 22:18 Lymph % (Auto) 25.2 % 03/26/23 22:18 Assumption % (Auto) 7.4 % 03/26/23 22:18 Eos % (Auto) 0.4 % 03/26/23 22:18 Baso % (Auto) 0.5 % 03/26/23 22:18 Neut # (Auto) 6.57 10^3/uL (1.8-7.7) 03/26/23 22:18 Lymph # (Auto) 2.5 10^3/uL (0.8-4.8) 03/26/23 22:18 Assumption # (Auto) 0.7 10^3/uL (0.2-0.9) 03/26/23:18 Eos # (Auto) 0.0 10^3/uL (0.0-0.8) 03/26/23 22:18 Baso # (Auto) 0.1 10^3/uL (0.0-0.1) 03/26/23 22:18 Nucleated RBC % (auto) 0 % 11/02/23 22:18 Nucleated RBCs # 0.0 /100WBC 03/26/23 22:18 Sodium 137 mmol/L (136-145) 03/26/23 22:18 Potassium 2.7 mmol/L (3.5-5.1) L* 03/26/23 22:18 Chloride 98 mmol/L (98-107) 03/26/23 22:18 Carbon Dioxide 26 mmol/L (22-29) 03/26/23 22:18 Anion Gap 15.7 (5-19) 03/26/23 22:18 BUN 10 mg/dL (6-20) 03/26/23 22:18 Creatinine 0.6 mg/dL (0.5-0.9) 03/26/23 22:18 GFR Calculation 108.6 mL/min (90-130) 03/26/23 22:18 Glucose 96 mg/dL (65-115) 03/26/23 22:18 Calculated Osmolality 283 mOsm/kg (285-295) L 03/26/23 22:18 Calcium 9.1 mg/dL (8.5-10.5) 03/26/23 22:18 Total Bilirubin 0.2 mg/dL (0.15-1.2) 03/26/23 22:18 AST 13 U/L (0-32) 03/26/23 22:18 ALT 14 U/L (0-33) 03/26/23 22:18 Alkaline Phosphatase 72 U/L (35-105) 03/26/23 22:18 Total Protein 6.5 g/dL (6.6-8.7) L 03/26/23 22:18 Albumin 4.0 g/dL (3.5-5.2) 03/26/23 22:18 Globulin 2.5 g/dL (1.3-4.6) 03/26/23 22:18 HCG, Qual Negative (Negative) 03/26/23 21:30 Urine Opiates Screen Negative ng/mL (Negative) 03/26/23 21:30 Ur Barbiturates Screen Negative ng/mL (Negative) 03/26/23 21:30 Ur Phencyclidine Scrn Negative ng/mL (Negative) 03/26/23 21:30 Ur Amphetamines Screen Negative ng/mL (Negative) 03/26/23 21:30 U Benzodiazepines Scrn Negative ng/mL (Negative) 03/26/23 21:30 Urine Cocaine Screen Negative ng/mL (Negative) 03/26/23 21:30 U Marijuana (THC) Screen Positive ng/mL (Negative) H 03/26/23 21:30 All radiology interpretation(s) finalized by discharge ED provider radiology interpretation(s): Radiology Impressions Abdomen X-Ray? 03/26/23 21:19 IMPRESSION: Mild constipation without bowel dilation to indicate obstruction. ? Abdomen/Pelvis CT? 03/26/23 22:08 IMPRESSION: 1. ? Sigmoid colon wall thickening may be due to nondistention, please correlate for a colitis. 2. ? Right ovary 18 mm peripherally enhancing cyst may reflect a partially collapsed follicle. 3. ? Diverticulosis without diverticulitis. 4. ? Left lower lobe 6.7 mm pulmonary nodule somewhat visualized, dedicated chest CT advised for further evaluation. 5. ? Right lower lobe atelectasis. 6. ? Hepatic steatosis. Discharge Plan Discharge Patient Disposition: Home Clinical Impression: Abdominal pain, Constipation, Acute hypokalemia Condition: Stable Prescriptions: No Action acetaminophen [Tylenol Extra Strength] 500 mg tablet 500 mg PO Q6H PRN (Reason: Pain) losartan 50 mg Tablet 100 mg PO DAILY Qty: 90 0RF hydralazine 25 mg Tablet 25 mg PO TID Qty: 90 3RF chlorthalidone 25 mg Tablet 25 mg PO DAILY Qty: 60 0RF amlodipine 10 mg Tablet 10 mg PO DAILY Qty: 60 0RF albuterol sulfate 90 mcg/actuation HFA aerosol inhaler 1 inh inhalation QID Qty: 8.5 3RF (DME) Blood Pressure Kit Kit See Rx Instructions .Route Qty: 1 0RF Rx Instructions: As directed isosorbide dinitrate 10 mg tablet 5 mg PO BID Qty: 60 3RF Rx Instructions: allow nitrate-free interval of 12-14 hrs per 24-hr period Discharge Orders: Discharge ED (Routine); Ordered 03/26/23 Ordered By: Roddy Hernandez Referrals: Betsy Mitchell, DO [Primary Care Provider] - Discharge Diet: Advance as tolerated Discharge Activity: Resume usual activity Patient Instructions: Abdominal Pain (ED), Opioid Safety, Pain Management Coding Level of Care Code ED [employer] for Asim Johnson
[2023-03-26 21:45] LABS: HCG Qualitative Urine. Negative (Negative)
--- NOTE | 2023-03-26 22:08 | CTR_ITS ---
PROCEDURE INFORMATION: Exam: CT Abdomen And Pelvis With Contrast Exam date and time: 03/26/2023 10:27 PM Age: 42 years old Clinical indication: Abdominal pain; Localized; Right lower quadrant (rlq); Prior surgery; Surgery date: 6+ months; Surgery type: Hernia; Additional info: Rlq abdominal pain--r/o hernia TECHNIQUE: Imaging protocol: Computed tomography of the abdomen and pelvis with contrast. Radiation optimization: All CT scans at this facility use at least one of these dose optimization techniques: automated exposure control; mA and/or kV adjustment per patient size (includes targeted exams where dose is matched to clinical indication); or iterative reconstruction. Contrast material: OMNI 350; Contrast volume: 100 ml; Contrast route: INTRAVENOUS (IV); REPORTING DATA: Count of CT and Cardiac NM exams in prior 12 months: This patient has received 0 known CTs and 0 known cardiac nuclear medicine studies in the 12 months prior to the current study. COMPARISON: CT abdomen pelvis w con* [id number] 04/28/2020 12:47 AM RADIATION DOSE METRICS: Total DLP (mGy-cm): 811.08 FINDINGS: Lungs: Left lower lobe 6.7 mm pulmonary nodule somewhat visualized, dedicated chest CT advised for further evaluation. Right lower lobe atelectasis. Liver: Hepatic steatosis. Gallbladder and bile ducts: Normal. No calcified stones. No ductal dilation. Pancreas: Normal. No ductal dilation. Spleen: Normal. No splenomegaly. Adrenal glands: Normal. No mass. Kidneys and ureters: Normal. No hydronephrosis. Stomach and bowel: Sigmoid colon wall thickening may be due to nondistention, please correlate for a colitis. Diverticulosis without diverticulitis. Appendix: No evidence of appendicitis. Intraperitoneal space: Unremarkable. No free air. No significant fluid collection. Vasculature: Unremarkable. No abdominal aortic aneurysm. Lymph nodes: Unremarkable. No enlarged lymph nodes. Urinary bladder: Unremarkable as visualized. Reproductive: Right ovary 18 mm peripherally enhancing cyst may reflect a partially collapsed follicle. Bones/joints: Unremarkable. No acute fracture. Soft tissues: Unremarkable. CT/CT abdomen pelvis w con* [id number] IMPRESSION: 1. Sigmoid colon wall thickening may be due to nondistention, please correlate for a colitis. 2. Right ovary 18 mm peripherally enhancing cyst may reflect a partially collapsed follicle. 3. Diverticulosis without diverticulitis. 4. Left lower lobe 6.7 mm pulmonary nodule somewhat visualized, dedicated chest CT advised for further evaluation. 5. Right lower lobe atelectasis. 6. Hepatic steatosis.
[2023-03-26 22:21] LABS: Basophils # 0.1 10^3/uL (0.0-0.1); Basophils % 0.5 %; Eosinophils % 0.4 %; Lymphocytes # 2.5 10^3/uL (0.8-4.8); Lymphocytes % 25.2 %; Mean Corpuscular HGB Conc 34.7 g/dL (30-55); Mean Corpuscular Hemoglobin 32.3 pg (27-33); Mean Corpuscular Volume 92.9 fl (85-98); Mean Platelet Volume 9.7 fL (7.4-10.4); Monocytes # 0.7 10^3/uL (0.2-0.9); Monocytes % 7.4 %; Neutrophils # 6.57 10^3/uL (1.8-7.7); Nucleated Red Blood Cells % 0 %; Platelet Count 303 10^3/cmm (157-399); Red Blood Count 4.09 10^6/uL (3.85-5.65); Red Cell Distribution Width 12.9 % (12.1-15.1); White Blood Count 9.96 10^3/uL (3.29-11.43)
[2023-03-26] MEDS: iohexol 350 mg/mL 500 mL Btl (per mL) IV (22:34)
[2023-03-26 22:39] LABS: Alanine Aminotransferase 14 U/L (0-33); Alkaline Phosphatase 72 U/L (35-105); Anion Gap 15.7 (5-19); Aspartate Amino Transferase 13 U/L (0-32); Blood Urea Nitrogen 10 mg/dL (6-20); Calcium 9.1 mg/dL (8.5-10.5); Carbon Dioxide 26 mmol/L (22-29); Chloride 98 mmol/L (98-107); Creatinine Clr Calc Pharmacy 129.5083; Globulin 2.5 g/dL (1.3-4.6); Glomerular Filtration Rate 108.6 mL/min (90-130); Glucose 96 mg/dL (65-115); Osmolality Calculated 283 mOsm/kg (285-295); Sodium 137 mmol/L (136-145); Total Bilirubin 0.2 mg/dL (0.15-1.2); Total Protein 6.5 g/dL (6.6-8.7)
[2023-03-26 22:41] LABS: Potassium 2.7 mmol/L (3.5-5.1)
[2023-03-26] MEDS: potassium chloride ER 20 mEq Tablet 60 MEQ PO (23:00)
[2023-03-26] MEDS: ketorolac 30 mg/mL INJ IVP (23:01)
[2023-03-26 23:06] LABS: Amphetamines Screen Urine Negative (Negative); Barbiturates Screen Urine Negative (Negative); Benzodiazepines Screen Urine Negative (Negative); Cocaine Screen Urine Negative (Negative); Opiate Screen Urine Negative (Negative); PCP Screen Urine Negative (Negative); THC Screen Urine Positive (Negative)
[2023-03-26 23:30] VITALS: BP 139/92; PULSE 105; RESP 18; TEMP 36.5; O2SAT 97
== END 2023-03-26 23:31 | disposition home or self-care (01) ==
PROVIDERS: Emergency Provider Internal Medicine; PCP Internal Medicine
DX: K59.00 Constipation, unspecified (principal); E87.6 Hypokalemia; Z72.0 Tobacco use; I10 Essential (primary) hypertension
CPT/HCPCS: 36415; 74018; 74177; 80053; 80306; 81025; 85025; 96374; 99285; J1885; Q9967

== ENCOUNTER 2023-07-27 10:46 | Outpatient (CLI) | payer MEDICAID, SELFPAY ==
--- NOTE | 2023-07-27 11:03 | CT_ITS ---
WS: [id number] CT chest w con* [id number] HISTORY: PULMONARY NODULE, LEFT LOWER LOBE TECHNIQUE: Axial imaging performed through the thorax. Coronal and sagittal reformats are submitted. All CT scans at [facility] use at least one of these dose optimization techniques: automated exposure control; mA and/or kV adjustment per patient size (includes targeted exams where dose is mat ched to clinical indication); or iterative reconstruction. CONTRAST: Omnipaque 350; 100 mL IV. DLP: 463.98 mGy.cm COMPARISON: 03/26/2023, 05/20/2019 Lungs and central airway: Hyperinflated lungs from emphysema. Mild paraseptal emphysema. Bilateral pu lmonary nodules are reidentified. These nodules are subcentimeter and predominantly in the lower lobe s and RIGHT middle lobe. The largest nodule measures 5 mm in the medial LEFT lower lobe. Nodules have been present since 05/20/2009. No new mass or nodule identified. Heart and pericardium: Normal size heart with no pericardial effusion. Mediastinum and arnaud: No mediastinum or hilar adenopathy. Vessels: Normal size aortic and pulmonary artery. No coronary artery calcifications. Chest wall and lower neck: No soft tissue masses. Upper abdomen: Contracted gallbladder. LEFT adrenal hyperplasia. Suspect small developing adenoma. Th ere are small to characterize hypodensity upper pole LEFT kidney. Osseous structures: No destructive process. IMPRESSION: 1. Long-term stability of bilateral, subcentimeter pulmonary nodules. These nodules have been presen t since 05/20/2019. 2. Mild chronic emphysema. 3. No adenopathy.
[2023-07-27] MEDS: iohexol 350 mg/mL 500 mL Btl (per mL) IV (11:20)
== END 2023-07-27 10:47 | disposition home or self-care (01) ==
PROVIDERS: PCP Internal Medicine; Visit Provider Nurse Practitioner Family
DX: R91.1 Solitary pulmonary nodule (principal)
CPT/HCPCS: 71260; Q9967

== ENCOUNTER 2024-01-06 10:39 | Outpatient (CLI) | payer MEDICAID, SELFPAY ==
--- NOTE | 2024-01-06 10:47 | MM_ITS ---
WS: [id number] SCREENING DIGITAL BREAST TOMOSYNTHESIS MAMMOGRAM WITH CAD HISTORY: SCREENING COMPARISON: None available. Bilateral CC and MLO with tomosynthesis and synthetic mammography submitted. Computer aided detection analyzed. Breast composition: There are scattered areas of fibroglandular density. Focal asymmetry noted in the mid LEFT breast just above the nipple line. Asymmetry is slightly spiculated measuring 10 x 9 mm. Es timated to be at 2-3 o'clock. Benign calcification in the LEFT breast also. RIGHT breast is negative. MM/[place] [id number] IMPRESSION: BI-RADS: 0-Incomplete: Need additional imaging evaluation FOLLOW UP: Need Additional Imaging LEFT breast: Spot compression views (CC and MLO). True ML. Ultrasound to follow if abnormality persists.
== END 2024-01-06 10:40 | disposition home or self-care (01) ==
PROVIDERS: PCP Internal Medicine; Visit Provider Nurse Practitioner Family
DX: Z12.31 Encounter for screening mammogram for malignant neoplasm of breast (principal); R92.323 Mammographic fibroglandular density, bilateral breasts
CPT/HCPCS: 77063; 77067

== ENCOUNTER 2024-01-19 08:26 | Outpatient (CLI) | payer MEDICAID, SELFPAY ==
--- NOTE | 2024-01-19 08:28 | US_ITS ---
WS: [id number] US transvaginal [id number] HISTORY: MENSTRUAL BLEEDING,ABNORMAL COMPARISON: None available. Uterus: 7.1 cm x 4.6 cm x 4.3 cm. Uterus is retroflexed and extends posterior. No mass identified. Endometrium: 0.4 cm. No endometrial thickening or abnormality. Limited visualization due to position of the uterus. Right ovary: 1.8 cm x 1.4 cm x 2.4 cm. Normal size and vascularity, no cystic or solid masses. Left ovary: 2.6 cm x 3.1 cm x 2.0 cm. Normal size and vascularity, no cystic or solid masses. Simple LEFT ovarian dominant follicle measures 2.3 x 1.7 x 2.6 cm. No free fluid in the cul-de-sac. US/US transvaginal [id number] IMPRESSION: 1. Normal appearing endometrium. No mass or increased vascularity. 2. Mild retroflexion of the uterus. 3. Dominant LEFT ovarian follicle with a maximum diameter of 2.6 cm.
== END 2024-01-19 08:27 | disposition home or self-care (01) ==
LOC: RAD 08:26
PROVIDERS: PCP Internal Medicine; Visit Provider Nurse Practitioner Family
DX: N93.9 Abnormal uterine and vaginal bleeding, unspecified (principal); N83.02 Follicular cyst of left ovary; N85.4 Malposition of uterus
CPT/HCPCS: 76830

== ENCOUNTER 2024-02-15 10:33 | Outpatient (CLI) | payer MEDICAID, SELFPAY ==
--- NOTE | 2024-02-15 10:47 | MM_ITS ---
WS: [id number] ADDITIONAL VIEWS LEFT MAMMOGRAM with tomosynthesis. HISTORY: ABNORMAL MAMMOGRAM COMPARISON: 01/06/2024 LEFT MAMMOGRAM: Spot compression views and true ML with tomosynthesis and sympathetic mammography. Breast composition: There are scattered areas of fibroglandular density. The asymmetries that were present on the prior study completely resolve with additional imaging. Repe ated the screening CC and MLO projection and these asymmetries have resolved also. This is due to fib roglandular soft tissues that was superimposed. Benign calcifications. MM/MM diag LT tomosynthesis [id number] IMPRESSION: BI-RADS: 2 - Benign. FOLLOW UP: 1 Year Follow-up Return to annual screening mammography. The asymmetries resolves with additiona l imaging.
== END 2024-02-15 10:34 | disposition home or self-care (01) ==
LOC: RAD 10:34
PROVIDERS: PCP Internal Medicine; Visit Provider Nurse Practitioner Family
DX: R92.8 Other abnormal and inconclusive findings on diagnostic imaging of breast (principal); R92.322 Mammographic fibroglandular density, left breast; R92.1 Mammographic calcification found on diagnostic imaging of breast
CPT/HCPCS: 77061; G0279

== ENCOUNTER 2024-08-11 15:59 | Outpatient (CLI) | payer MEDICAID, SELFPAY ==
--- NOTE | 2024-08-11 16:06 | XRR_ITS ---
PROCEDURE INFORMATION: Exam: XR Cervical Spine Exam date and time: 08/11/2024 4:19 PM Age: 43 years old Clinical indication: Neck pain; Low back pain that radiates down the hips. Pain in the cervical region that is causing numbness and tingling in the arms/hands. ; Additional info: Paresthesia, hands TECHNIQUE: Imaging protocol: Radiologic exam of the cervical spine. Views: 2 or 3 views. COMPARISON: CT angio headneck* [id number] 01/08/2022 9:42 PM FINDINGS: Bones/joints: Minor dextrocurvature. There is straightening of lordosis. No fracture. No significant degenerative changes. No bone lesions. Soft tissues: Unremarkable. XR/XR cervical spine 3V* [id number] IMPRESSION: No acute findings.
--- NOTE | 2024-08-11 16:07 | XRR_ITS ---
PROCEDURE INFORMATION: Exam: XR Lumbosacral Spine Exam date and time: 08/11/2024 4:19 PM Age: 43 years old Clinical indication: Lumbago with sciatica; Left; Low back pain that radiates down the hips. Pain in the cervical region that is causing numbness and tingling in the arms/hands. ; Additional info: Lumbago with sciatica, left side TECHNIQUE: Imaging protocol: Radiologic exam of the lumbosacral spine. Views: 2 or 3 views. COMPARISON: CT abdomen pelvis w con* [id number] 03/26/2023 10:27 PM FINDINGS: Bones/joints: Minor dextrocurvature. Endplate spurring at L1-L2 through L4-L5. Disc space height maintained. No significant listhesis. No fracture. No bone lesions. Soft tissues: Unremarkable. XR/XR lumbar spine 2-3V* [id number] IMPRESSION: No acute findings.
== END 2024-08-11 16:00 | disposition home or self-care (01) ==
LOC: RAD 16:03
PROVIDERS: PCP Internal Medicine; Visit Provider Nurse Practitioner Family
DX: M54.42 Lumbago with sciatica, left side (principal); R20.2 Paresthesia of skin; M46.06 Spinal enthesopathy, lumbar region
CPT/HCPCS: 72040; 72100

== ENCOUNTER 2025-03-19 16:00 | Inpatient (IN) | payer MEDICAID, SELFPAY ==
[2025-03-19] VITALS (15 sets, daily range): BP systolic 132–171; BP diastolic 85–121; PULSE 56–111; RESP 18–42; TEMP 36.5–37.4; O2SAT 91–100; BMI 35.4
--- OUTSIDE RECORDS SUMMARY | 2025-03-19 16:05 | XMS_ITS | Clinical Summary ---
Author Organization [facility] Address [address] [place] [address] Phone Care Team Providers Care Patient Financial Advocate Name Role Phone Unavailable Primary Care Provider Unavailabl e Allergies Active Allergy Reactions Criticality Noted Date Comments Amoxicillin-Pot Clavulanate Shortness of Breath/Wheezing High 03/05/2022 Lisinopril Cough Low 03/05/2022 Medications hydrALAZINE (APRESOLINE) 50 mg tablet Take 50 mg by mouth 3 times daily. Active metoprolol tartrate (LOPRESSOR) 25 mg tablet Take 25 mg by mouth 2 times daily. Active chlordiazePOXIDE (LIBRIUM) 25 mg capsule Take 25 mg by mouth daily. Active amLODIPine-atorv astatin 10-10 mg tablet Take 1 Tablet by mouth daily. Active losartan (COZAAR) 100 mg tablet Take 100 mg by mouth daily. Active Active Problems Problem Noted Date Diagnosed Date HTN (hypertension), benign 03/23/2024 Social History Tobacco Use Types Packs/Day Years Used Date Smoking Tobacco: Every Day Cigarettes Smokeless Tobacco: Never Tobacco Cessation:Ready to Q uit: Not Asked; Counseling Given: Not Answered Alcohol Use Standard Drinks/Week Comments Not Currently 0 (1 standard drink = 0.6 oz pur e alcohol) Comments No Sex and Gender Information Value Date Recorded Sex Assigned at Not on file Legal Sex Female 4:08 PM CDT Gender Identity Not on file Sexual Orientation Not on file Last Filed Vital Signs Vital Sign Reading Time Taken Comments Blood Pressure 137/88 03/05/2022 4:45 PM CDT Pulse 92 03/05/2022 4:45 PM CDT Temperature 36.6 C (97.8 F) 03/05/2022 4:15 PM CDT Respiratory Rate 18 03/05/2022 4:45 PM CDT Oxygen Saturation 98% 03/05/2022 4:45 PM CDT Inhaled Oxygen Concentration - - Weight 94 kg (207 lb 3.2 oz) 03/05/2022 4:15 PM CDT Height 162.6 cm (5' 4 ) 03/05/2022 4:15 PM CDT Body Mass Index 35.57 03/05/2022 4:15 PM CDT Plan of Treatment Health Maintenance Due Date Last Done Comments DTAP/TDAP/TD VACCINES (1 - Tdap) 1997 HEPATITIS B VACCINES (1 of 3 - 19+ 3-dose series) 1997 HPV/Cotest (21-29) 09/14/1999 CERVICAL CANCER SCREENING 2008 HPV/Cotest (30-65) 2008 PAP SMEAR 2008 BREAST CANCER SCREENING 2018 COLORECTAL SCREENING 09/14/2023 Colorectal Cancer Screening 09/14/2023 FIT-DNA Q 3 years 09/14/2023 FIT/FOBT Q 1 year 09/14/2023 Flex Sig/CT Colonography Q 5 years 09/14/2023 INFLUENZA VACCINE (#1) 2024 HPV VACCINES Aged Out No longer eligi ble based on patient's age to complete this topic Insurance [facility] [id number]
--- OUTSIDE RECORDS SUMMARY | 2025-03-19 16:05 | XMS_ITS | Data Portability ---
Author Organization [facility] Debbie Ascencio, [facility] Address [address] [place] [id number] Assessment Encounter Date Assessment Date Assessment LastModified by Organization Details LastModified Time 04/22/2023 04/22/2023 Due to the persistence of her rectal pain, the patient was then fit for an endoscopic evaluation. We discussed the risks and alternatives to a colonoscopy. We discussed the risks of bleeding, perforation, and sedation. She had no further questions and wishes to proceed Not available 04/28/2023 22:44:29 Plan of Treatment Reminders Order Date Submit Date Provider Last Modified By Organization Details Last Modified Time Details Appointments None record ed. Lab None record ed. Referral None record ed. Procedures None record ed. Surgeries None record ed. Imaging None record ed. Medication Orders None record ed. Patient TargetsNo targets recorded. Patient Instructions Encounter Date Encounter Id Patient Instructions Last Modified By Organization Details Last Modified Time 04/22/2023 [id number] colonoscopy prep - miralax Not available 04/28/2023 22:44:30 colonoscopy education Not available 04/28/2023 22:44:30 colonoscopy education Not available 04/28/2023 22:44:30 Reason for Referral None Reported. Problems Name Problem SNOMED Code Status Onset Date Resolution Date Notes Provider Name and Address Organization Details Recorded Time Rectal pain 34737435 Active 023 [facility] 04/22/2023 12:20:51 Problem Notes None recorded. Procedures Surgical History Date Name Laterality Status Provider Name and Address Organization Details Recorded Time Hernia Repair completed [facility]AS [facility] RaulCJose Raul 04/22/2023 12:10:05 Imaging Results None recorded. Procedure Notes None recorded. Medical Equipment None Reported. Allergies Allergen ID Allergen Name Allergen Category Reaction Reaction Severity Criticality Documentation Date Start Date Code Code System Note Provider Name and Address Organization Details Recorded Time 93167 Augmentin medicatio n anaphylax is Not available high 04/22/2023 08628 2 RxNorm EDISON green [facility], LJose RaulLJose RaulCJose Raul 3 12:08:50 52233 lisinopri l medicatio n cough Not available low 04/22/2023 95207 RxNorm EDISON green [facility], KendrickLJose RaulCJose Raul 3 12:09:05 Medications Name Sig Start Date Stop Date Status Note LastModified by Organization Details LastModified Time atorvastatin 40 mg tablet TAKE TWO TABLETS BY MOUTH AT BEDTIME active Not Available Not Available No t Available atorvastatin 80 mg tablet TAKE 1 TABLET BY MOUTH EVERY DAY AT BEDTIME active Not Available Not Available No t Available chlorthalidone 25 mg tablet TAKE ONE TABLET BY MOUTH EVERY DAY active Not Available Not Available No t Available amlodipine 10 mg tablet TAKE ONE TABLET BY MOUTH EVERY DAY active Not Available Not Available No t Available hydralazine 50 mg tablet TAKE ONE TABLET BY MOUTH THREE TIMES DAILY active Not Available Not Available No t Available losartan 100 mg tablet TAKE ONE TABLET BY MOUTH EVERY DAY active Not Available Not Available No t Available metoprolol tartrate 25 mg tablet TAKE ONE TABLET BY MOUTH TWICE DAILY active Not Available Not Available No t Available Vitals Date Recorded Body weight Body mass index (BMI) Body height Respiratory rate Heart rate Oxygen saturation Oxygen saturation in Arterial blood by Pulse oximetry Body temperature Systolic And Diastolic Provider Name and Address Organization Details Last Updated DateTime 3 83494.7 7 g 34.5 kg/m2 162.56 cm 20 /min 84 /min 97 % 97 % 98.9 [degF] 112/78 mm[Hg] EDISON [facility]ICAS [facility]endrick[facility] RaulCJose Raul 3 12:18:37 Social History Question Answer Notes LastModified by Organizat ion Details LastModified Time Tobacco Smoking Status Current Every Day Smoker EDISON green [facility], Debbie 04/22/2023 12:11:21 Which Illicit Or Recreational Drugs Have You Used? Marijuana Information not available 04/22/2023 What Is Your Relationship Status? Domestic Partner Information not available 04/22/2023 How Much Tobacco Do You Smoke? 0.5 PPD Information not available 04/22/2023 How Many Years Have You Smoked Tobacco? 29 Started At Age 13 Yr Information not available 04/22/2023 Sex: Unknown Functional Status Question Answer Note LastModified by Organizat ion Details LastModified Time How many times per week do you consume alcohol? 5-7 times per week Information not available 04/22/2023 Do you use any illicit or recreational drugs? Yes Information not available 04/22/2023 Do you or have you ever used any other forms of tobacco or nicotine? No Information not available 04/22/2023 What is your level of alcohol consumption? Moderate Information not available 04/22/2023 Are you currently employed? Yes Information not available 04/22/2023 Are you able to care for yourself independently? Yes Information not available 04/22/2023 Mental Status None recorded. Family History Relationship Description Onset Age of this Age Resolved Age Notes LastModified by Organization Details LastModified Time Mother Primary malignant neoplasm of lung Not available 2022 12:10:38 Medical History Condition Response Hypertension Y High Cholesterol Y Gynecological HistoryNo gynecological history recorded. Obstetrics History GPAL:G 0 P 0 0 0 0 Past Encounters Encounter ID Performer Location Encounter Start Date Encounter Closed Date Diagnosis/Indication Diagnosis SNOMED-CT Code Diagnosis ICD10 Code Diagnosis IMO Codes Diagnosis Note [id number] Deng Velez MD [facility] ([facility]) [address] [place] [phone] 04/22/2023 11:43:05 04/29/2023 09:08:26 Rectal pain 44405164 K62.89 Health Concerns Section Related Observation LastModified by Organization Detai ls LastModified Time None Recorded Concern Status LastModified by Organization Details LastModified Time None Recorded Advance Directives Directive None Recorded Payers Insurance Date Sequence Insurance Name Policy Number Policy Odonnell Covered Member ID Odonnell Member ID Guarantor Name 07/30/2023 2 [facility] - [place]MO[place] JOAN Ferrari [id number] Maria Victoria Ferrari 06/30/2023 3 [employer] [place] (PPO[place] Maria Victoria Ferrari [id number] Maria Victoria Vega 06/30/2023 2 [place] Maria Victoria Vega [id number] Maria Victoria Vega 07/30/2023 1 [employer] [facility] HEATH [facility]AN (EPO) Maria Victoria Ferrari [id number] Maria Victoria Ferrari Notes Date Note Type Note Provider Name and Address Organization Details Recorded Time 04/22/2023 text/html Colonoscopy ScreeningReported by PatientColonoscopy ScreeningFor gi symptoms, patient reportsno abdominal pain,no diarrhea,no constipation,no recent change in bowel movements,no change in the stool,no color change in stool, andno rectal bleeding(rectal pain). For associated symptoms, patient reportsnormal appetite,no fever,no nausea, andno vomiting. For context, patient reportsno prior examination. For family history, patient reportsno colon cancer. The patient presents today at the request of [facility] for evaluation and discussion of colonoscopy for rectal pain. The patient denies any recent abdominal pain, persistent diarrhea, persistent constipation, bloody or dark tarry stools, or mucusy stools. Last Colon Cancer screening: none Problems with anesthesia in the past: NONE Family History of Colon cancers: NONE Blood Thinners: NONE Co-morbidities: HTN Deng Velez MD [address] [place] [address], [phone], [facility], L[facility]L.CJose Raul 04/28/2023 22:44:45 OBGyn Episode No OBEpisode recorded.
--- NOTE | 2025-03-19 16:30 | PC.NURSE ---
unable to obtain BP in triage due to patient ripping cuff off and restless
[2025-03-19] MEDS: LORazepam 2 mg/mL INJ 1 mL IVP ×2 (16:45→18:06)
[2025-03-19 16:54] LABS: Hematocrit 40.2 % (36-47); Hemoglobin 14.10 g/dL (11.27-16.99); Mean Corpuscular HGB Conc 35.1 g/dL (30-55); Mean Corpuscular Hemoglobin 32.0 pg (27-33); Mean Corpuscular Volume 91.4 fl (85-98); Nucleated Red Blood Cells % 0 %; Platelet Count 295 10^3/cmm (157-399); Red Blood Count 4.40 10^6/uL (3.85-5.65); White Blood Count 7.27 10^3/uL (3.29-11.43)
--- NOTE | 2025-03-19 17:04 | ECG_ITS ---
[facility] [employer] [facility] Test Date: 2025-03-19 Pat Name: Maria Victoria Ferrari Department: Room: Gender: Female Line Director: : 1980 Requested By: Jamison Madrid Order Number: [id number] Robbin MD: ELSY TUCKER Measurements Intervals [place] Rate: 87 P: 75 MT: 147 QRS: 69 QRSD: 90 T: 79 QT: 373 QTc: 451 Interpretive Statements SINUS RHYTHM WITH SINUS ARRHYTHMIA MODERATE ST DEPRESSION [0.05+ mV ST DEPRESSION] Compared to ECG 01/08/2022 22:03:33 ST (T wave) deviation now present T-wave abnormality no longer present Possible ischemia no longer present Electronically Signed On 03-19-2025 22:23:12 CDT by ELSY TUCKER [id number]
[2025-03-19 17:06] LABS: HCG, Serum Qual Negative (Negative)
--- NOTE | 2025-03-19 17:06 | W.ED.GENADLT ---
HPI - General Adult General: Chief complaint: General Medical Stated complaint: stopped taking seven tabs, nausea Source: patient Mode of arrival: ambulatory Limitations: no limitations History of Present Illness: 44-year-old female states she has been taking 6-7 kratom pills daily over the last year. States she quit cold turkey yesterday and states feel like she is having withdrawals. She has had nausea states she has been feeling extremely anxious and having some palpitations. She denies any dyspnea or chest pain denies any vomiting she denies any fevers. Associated symptoms: Reports nausea Related Data Home Medications ?Medication ?Instructions ?Recorded ?Confirmed acetaminophen 500 mg tablet 500 mg PO Q6H PRN Pain 07/26/21 03/16/25 (Tylenol Extra Strength) Previous Rx's ?Medication ?Instructions ?Recorded albuterol sulfate 90 mcg/actuation 1 inh inhalation QID coughing #8.5 01/07/22 aerosol inhaler grams amlodipine 10 mg tablet 10 mg PO DAILY #60 tabs 01/07/22 blood pressure monitor (Blood #1 ea 01/07/22 Pressure Kit) chlorthalidone 25 mg tablet 25 mg PO DAILY #60 tabs 01/07/22 losartan 50 mg tablet 100 mg (2 x 50 mg) PO DAILY #90 01/07/22 tabs fluticasone propionate 50 1 spray intranasal DAILY PRN nasal 05/04/23 mcg/actuation nasal congestion #16 grams spray,suspension (Flonase Allergy Relief) azithromycin 250 mg tablet See Rx Instructions PO .COMPLEX #6 10/28/24 tabs hydralazine 25 mg tablet 25 mg PO TID #90 tabs 10/28/24 levocetirizine 5 mg tablet 5 mg PO DAILY PRN allergy symptoms 10/28/24 (Allergy Relief (levocetirizine)) #30 tabs diazepam 2 mg tablet (Valium) 2 mg PO BID PRN withdrawal 03/19/25 symptoms #10 tabs ondansetron 4 mg disintegrating 4 mg PO Q6H PRN nausea and 03/19/25 tablet vomiting #14 tabs Allergies Allergy/AdvReac Type Severity Reaction Status Date / Time amoxicillin (From Augmentin) Allergy ALGY-Difficulty Verified 03/16/25 10:15 Swallowing clavulanic acid (From Allergy ALGY-Difficulty Verified 03/16/25 10:15 Augmentin) Swallowing lisinopril Allergy ALGY-Difficulty Verified 03/16/25 10:15 Swallowing Review of Systems GI: Reports: nausea PFSH ED PFSH: Medical History Viral upper respiratory tract infection with cough Dental caries Acute bronchitis and bronchiolitis Hx of intrinsic asthma Hypertension, uncontrolled COVID Positive test 06/18/2021. Essential (primary) hypertension Surgical History History of umbilical hernia repair (05/28/20) Recurrent Status post right inguinal hernia repair History of umbilical hernia repair Family History Mother Cancer Lung Grandmother Cancer Breast Social History Smoking and tobacco/nicotine status: current every day tobacco/nicotine user Alcohol intake: current Household members: significant other Current gender identity: Female Physical Exam Const: COMMON NORMALS: no acute distress, patient oriented x3 and healthy appearing HENMT: COMMON NORMALS: normocephalic and atraumatic HEAD & SCALP: normocephalic and atraumatic Neck/C-Spine: COMMON NORMALS: full ROM and supple Chest: COMMONS NORMALS: normal inspection of the chest Resp: COMMON NORMALS: normal respiratory effort, No retractions, No use of accessory muscles and clear to auscultation bilaterally AUSCULTATION: clear to auscultation bilaterally Cardio: COMMON NORMALS: regular rhythm and No murmurs present (Cardio) RATE: tachycardic RHYTHM: regular rhythm GI: COMMON NORMALS: Normal to inspection, nondistended, normoactive bowel sounds present, Soft to palpation, non-tender and no masses PALPATION: Yes Soft to palpation Extremity: COMMON NORMALS: normal to inspection and full ROM Neuro: COMMON NORMALS: patient oriented x3, moves all extremities and no focal motor deficits Psych: COMMON NORMALS: mental status grossly normal, Normal thought process present and cooperative THOUGHT PROCESS: Normal thought process present Skin: COMMON NORMALS: no rashes or lesions noted and no wounds GENERAL SKIN EXAM: no rashes or lesions noted Course Vital Signs: Vital signs: Vital Signs Temperature 98.8 F 03/20/25 04:00 Pulse Rate 67 03/20/25 05:30 Respiratory Rate 32 H 03/20/25 05:30 Blood Pressure 146/99 03/20/25 04:00 Pulse Oximetry 92 03/20/25 05:30 Oxygen Delivery Me thod Room Air 03/20/25 05:00 Oxygen Flow Rate 2 03/20/25 04:00 MDM - General Adult Medical Decision Making Patient presents here with agitation along with likely withdrawal symptoms from kratom. Patient's blood work here is normal she has no signs of meningitis or infection. Head CT shows no signs of stroke or hemorrhage. Patient has had agitation here likely from her withdrawals given her multiple doses of Ativan. Patient seen by Dr. Walter who will admit to the ICU. Medical Records I reviewed the patient's medical records. Lab Data I reviewed the patient's lab results. 03/20/25 03:45 03/20/25 03:[address] 03/19/25 17:38 IMPRESSION: No acute intracranial abnormality. ASSESSMENT: ASPECTS ([place] Stroke Program Early CT Score) is 10. ADDENDUM: 03/19/25 7180 Addendum: THIS REPORT CONTAINS FINDINGS THAT MAY BE CRITICAL TO PATIENT CARE. The findings were acknowledged by Dr. Durant at 6:37 PM [facility] 03/19/2025 through the operation center. Laboratory Results WBC 7.27 10^3/uL (3.29-11.43) 03/19/25 16:40 RBC 4.40 10^6/uL (3.85-5.65) 03/19/25 16:40 Hgb 14.10 g/dL (11.27-16.99) 03/19/25 16:40 Hct 40.2 % (36-47) 03/19/25 16:40 MCV 91.4 fl (85-98) 03/19/25 16:40 MCH 32.0 pg (27-33) 03/19/25 16:40 MCHC 35.1 g/dL (30-55) 03/19/25 16:40 RDW 12.7 % (12.1-15.1) 03/19/25 16:40 Plt Count 295 10^3/cmm (157-399) 03/19/25 16:40 MPV 10.0 fL (7.4-10.4) 03/19/25 16:40 Neut % (Auto) 63.8 % 03/19/25 16:40 Lymph % (Auto) 24.6 % 03/19/25 16:40 [place] % (Auto) 10.5 % 03/19/25 16:40 Eos % (Auto) 0.1 % 03/19/25 16:40 Baso % (Auto) 0.6 % 03/19/25 16:40 Neut # (Auto) 4.64 10^3/uL (1.8-7.7) 03/19/25 16:40 Lymph # (Auto) 1.8 10^3/uL (0.8-4.8) 03/19/25 16:40 [place] # (Auto) 0.8 10^3/uL (0.2-0.9) 03/19/25 16:40 Eos # (Auto) 0.0 10^3/uL (0.0-0.8) 03/19/25 16:40 Baso # (Auto) 0.0 10^3/uL (0.0-0.1) 03/19/25 16:40 Nucleated RBC % (auto) 0 % 03/19/25 16:40 Nucleated RBCs # 0.0 /100WBC 03/19/25 16:40 ESR 6 mm/hr (0-15) 03/19/25 16:40 PT 12.60 SECONDS (12.1-14.9) 03/19/25 16:40 INR 0.88 (0.8-1.2) 03/19/25 16:40 Sodium 140 mmol/L (136-145) 03/19/25 16:40 Potassium 2.9 mmol/L (3.5-5.1) L 03/19/25 16:40 Chloride 101 mmol/L (98-107) 03/19/25 16:40 Carbon Dioxide 27 mmol/L (22-29) 03/19/25 16:40 Anion Gap 14.9 (5-19) 03/19/25 16:40 BUN 6 mg/dL (6-20) 03/19/25 16:40 Creatinine 0.6 mg/dL (0.5-0.9) 03/19/25 16:40 GFR Calculation 107.6 mL/min (90-130) 03/19/25 16:40 Glucose 111 mg/dL (65-115) 03/19/25 16:40 Estimat Average Glucose 103 03/19/25 16:40 Hemoglobin A1c 5.2 % (4.0-6.0) 03/19/25 16:40 Calculated Osmolality 288 mOsm/kg (285-295) 03/19/25 16:40 Lactic Acid 1.1 mmol/L (0.5-2.2) 03/19/25 16:40 Calcium 9.1 mg/dL (8.5-10.5) 03/19/25 16:40 Total Bilirubin 0.5 mg/dL (0.15-1.2) 03/19/25 16:40 AST 16 U/L (0-32) 03/19/25 16:40 ALT 13 U/L (0-33) 03/19/25 16:40 Alkaline Phosphatase 81 U/L (35-105) 03/19/25 16:40 Troponin T Baseline 8 ng/L (0-10) 03/19/25 16:40 C-Reactive Protein 3.0 mg/L (0.0-4.9) 03/19/25 16:40 Total Protein 7.0 g/dL (6.6-8.7) 03/19/25 16:40 Albumin 4.2 g/dL (3.5-5.2) 03/19/25 16:40 Globulin 2.8 g/dL (1.3-4.6) 03/19/25 16:40 Triglycerides 166 mg/dL (0-150) H 03/19/25 16:40 Cholesterol 107 mg/dL (0-200) 03/19/25 16:40 LDL Cholesterol, Calc 44 mg/dL (50-129) L 03/19/25 16:40 HDL Cholesterol 30 mg/dL (60-100) L 03/19/25 16:40 LDL/HDL Ratio 1.47 RATIO (0.00-3.22) 03/19/25 16:40 Cholesterol/HDL Ratio 3.57 mg/dL (0.0-4.40) 03/19/25 16:40 Lipase 12 U/L (13-60) L 03/19/25 16:40 Vitamin B12 323 pg/mL (232-1245) 03/19/25 16:40 Folate 9.1 ng/mL (4.8-37.3) 03/19/25 16:40 Procalcitonin 0.02 ng/mL (0-0.5) 03/19/25 16:40 TSH 0.39 uIU/mL (0.27-4.20) 03/19/25 16:40 HCG, Qual Negative (Negative) 03/19/25 16:40 Urine Color Yellow (Yellow) 03/19/25 17:15 Urine Appearance Clear (CLEAR) 03/19/25 17:15 Urine pH 7.5 (5-7) 03/19/25 17:15 Ur Specific [place] 1.006 (1.005-1.030) 03/19/25 17:15 Urine Protein Negative (Negative) 03/19/25 17:15 Urine Glucose (UA) Negative (Normal) 03/19/25 17:15 Urine Ketones Negative (Negative) 03/19/25 17:15 Urine Blood Negative (Negative) 03/19/25 17:15 Urine Nitrate Negative (Negative) 03/19/25 17:15 Urine Bilirubin Negative (Negative) 03/19/25 17:15 Urine Urobilinogen 1.0 mg/dL (Negative) 03/19/25 17:15 Ur Leukocyte Esterase Negative (Negative) 03/19/25 17:15 Urine RBC 0-2 /hpf (0-2) 03/19/25 17:15 Urine WBC 0-5 /hpf (0-5) 03/19/25 17:15 Ur Squamous Epith Cells 0-5 /hpf (0-5) 03/19/25 17:15 Amorphous Sediment Not Reportable 03/19/25 17:15 Urine Bacteria None seen /hpf (NONE) 03/19/25 17:15 Hyaline Casts 0-4 /lpf H 03/19/25 17:15 Urine Opiates Screen Negative ng/mL (Negative) 03/19/25 17:15 Ur Barbiturates Screen Negative ng/mL (Negative) 03/19/25 17:15 Ur Phencyclidine Scrn Negative ng/mL (Negative) 03/19/25 17:15 Ur Amphetamines Screen Negative ng/mL (Negative) 03/19/25 17:15 U Benzodiazepines Scrn Negative ng/mL (Negative) 03/19/25 17:15 Urine Cocaine Screen Negative ng/mL (Negative) 03/19/25 17:15 U Marijuana (THC) Screen Positive ng/mL (Negative) H 03/19/25 17:15 Ethyl Alcohol < 10 mg/dL (0-10) 03/19/25 16:40 All radiology interpretation(s) finalized by discharge Discharge Plan Discharge Patient Disposition: Admitted As Inpatient Admit Provider: Jared Galindo Clinical Impression: Withdrawal complaint Condition: Stable Discharge Diet: Advance as tolerated Discharge Activity: Resume usual activity Coding Level of Care Code ED [facility] for Asim Johnson
[2025-03-19 17:17] LABS: Alanine Aminotransferase 13 U/L (0-33); Albumin Level 4.2 g/dL (3.5-5.2); Alkaline Phosphatase 81 U/L (35-105); Anion Gap 14.9 (5-19); Aspartate Amino Transferase 16 U/L (0-32); Blood Urea Nitrogen 6 mg/dL (6-20); Calcium 9.1 mg/dL (8.5-10.5); Carbon Dioxide 27 mmol/L (22-29); Chloride 101 mmol/L (98-107); Creatinine Clr Calc Pharmacy 129.1591; Globulin 2.8 g/dL (1.3-4.6); Glucose 111 mg/dL (65-115); Lipase 12 U/L (13-60); Osmolality Calculated 288 mOsm/kg (285-295); Sodium 140 mmol/L (136-145); Total Protein 7.0 g/dL (6.6-8.7)
[2025-03-19 17:19] LABS: Potassium 2.9 mmol/L (3.5-5.1)
[2025-03-19 17:22] LABS: Glucose Urine UA Negative (Normal); Nitrate Urine Negative (Negative); Specific Gravity, Urine 1.006 (1.005-1.030)
[2025-03-19 17:24] LABS: Add Urine Microscopic? YES
[2025-03-19 17:30] LABS: PCP Screen Urine Negative (Negative)
--- NOTE | 2025-03-19 17:38 | CTR_ITS ---
PROCEDURE INFORMATION: Exam: CT Head Without Contrast Exam date and time: 03/19/2025 6:19 PM Age: 44 years old Clinical indication: Stroke-like symptoms; Altered mental status/memory loss; Additional info: Confusion TECHNIQUE: Imaging protocol: Computed tomography of the head without contrast. Radiation optimization: All CT scans at this facility use at least one of these dose optimization techniques: automated exposure control; mA and/or kV adjustment per patient size (includes targeted exams where dose is matched to clinical indication); or iterative reconstruction. Other technique: STROKE PROTOCOL was implemented. COMPARISON: CT angio headneck* [id number] 01/08/2022 9:42 PM RADIATION DOSE METRICS: Total DLP (mGy-cm): 1087.05 FINDINGS: Brain: Normal. No hemorrhage. Unremarkable white matter. No mass effect. Cerebral ventricles: No ventriculomegaly. Paranasal sinuses: Visualized sinuses are unremarkable. No fluid levels. Mastoid air cells: Visualized mastoid air cells are well aerated. Bones: Unremarkable. No acute fracture. Soft tissues: Unremarkable. CT/CT head wo con* [id number] IMPRESSION: No acute intracranial abnormality. ASSESSMENT: ASPECTS ([place] Stroke Program Early CT Score) is 10.
--- NOTE | 2025-03-19 17:50 | PC.NURSE ---
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
[2025-03-19 18:07] LABS: Alcohol Level < 10 mg/dL (0-10)
[2025-03-19] MEDS: ketamine 100 mg/mL Inj 5 mL IVP ×2 (18:15→18:35)
--- NOTE | 2025-03-19 18:15 | P.HP_ITS ---
Providers/Chief Complaint 2 Primary Care Provider: Betsy Mitchell DO Chief Complaint: stopped taking seven tabs, nausea History of Present Illness Maria Victoria Ferrari is a 44 year old female with a past medical history of hypertension, altered mental status. Currently patient is alert to person, not to place, not to time, her daughter is at bedside, I am not able to get history from Maria Victoria, but her daughter is at bedside who helps in history taking. Patient blood pressure 148/95, pulse 101, respiratory rate 18, temperature 97.7, she 99% on room air, she is having jerking movement of her bilateral upper and lower extremities, periodically she will try to get up out of bed, periodically she will answer yes or no questions, she will periodically get upset at her daughter at bedside who is trying to prevent her from getting out of bed, nursing staff tell me that at one point he she did get up out of bed and walked in the hallway. Clinically I cannot see any facial droop, she does say a few words like her daughter's name I cannot discern any slurring of her words, she is moving bilateral upper and lower extremities, spontaneously, she seems to have good strength as she is able to push me out of the way at times, no urinary incontinence, no bowel incontinence, pupils are equal round reactive to light, she does track me, she does not localize pain does not withdraw from pain, her GCS score is 12, I cannot discern any fasciculations, no clonus, examination is difficult as she has spontaneous movement of bilateral upper and lower extremities, does not follow commands for thorough neurologic testing, she has jerking movements of the upper extremities, lower extremities, not of her head, not of her tongue, she periodically stops and gets upset with her daughter who is talking to family members over the phone about what is being discussed over the phone. Patient's daughter tells me that Maria Victoria has 3 daughters, her only medical history is a history of hypertension, known history of CAD no history of strokes, she is , she works at a [employer] 4 days a week, for the last year she has been using 7 tabs, 6 to 7 pills daily over the last year, and yesterday she quit turkey, she was telling family numbers that she felt like she was having withdrawals, had reported nausea, feeling anxious. Daughter does tell me that she does smoke cigarettes, does smoke marijuana. In addition she does drink alcohol nightly, no history of alcohol withdrawals last drink was last night. No reported drug use. No reported suicidal or homicidal ideation. According to daughter, she has become much more secretive, much more withdrawn, she has had more paranoia, she has been hiding text on her phone, no known opiate use or overdose or withdrawal history, I cannot see any lacrimation clinically or any tremors, no rhinorrhea she does have frequent yawning, does appear to be restless, Review of Systems 2 General: Reports: ROS unobtainable due to mental status Medications/Allergies Home Medications ?Medication ?Instructions ?Recorded ?Confirmed ?Last Taken ?Type acetaminophen 500 mg tablet 500 mg PO Q6H PRN Pain 09/1303/16/25 Unknown History (Tylenol Extra Strength) albuterol sulfate 90 mcg/actuation 1 inh inhalation QI D coughing #8.5 01/07/22 03/16/25 Unknown Rx aerosol inhaler grams amlodipine 10 mg tablet 10 mg PO DAILY #60 tabs 12/2303/16/25 Unknown Rx blood pressure monitor (Blood #1 ea 01/07/22 03/16/25 Unknown Rx Pressure Kit) chlorthalidone 25 mg tablet 25 mg PO DAILY #60 tabs 03/16/25 Unknown Rx losartan 50 mg tablet 100 mg (2 x 50 mg) PO DAILY #90 01/07/22 03/16/25 Unknown Rx tabs fluticasone propionate 50 1 spray intranasal DAILY PRN nasal 05/04/23 03/16/25 Unknown Rx mcg/actuation nasal congestion #16 grams spray,suspension (Flonase Allergy Relief) azithromycin 250 mg tablet See Rx Instructions PO .COM PLEX #6 10/28/24 03/16/25 Unknown Rx tabs hydralazine 25 mg tablet 25 mg PO TID #90 tabs 03/16/25 Unknown Rx levocetirizine 5 mg tablet 5 mg PO DAILY PRN allergy s ymptoms 10/28/24 03/16/25 Unknown Rx (Allergy Relief (levocetirizine)) #30 tabs diazepam 2 mg tablet (Valium) 2 mg PO BID PRN withdraw al 03/19/25 Unknown Rx symptoms #10 tabs ondansetron 4 mg disintegrating 4 mg PO Q6H PRN nausea and 03/19/25 Unknown Rx tablet vomiting #14 tabs Allergies Allergy/AdvReac Type Severity Reaction Status Date / Time amoxicillin (From Augmentin) Allergy ALGY-Difficulty Verified 03/16/25 10:15 Swallowing clavulanic acid (From Allergy ALGY-Difficulty Verified 03/16/25 10:15 Augmentin) Swallowing lisinopril Allergy ALGY-Difficulty Verified 03/16/25 10:15 Swallowing PFSH Acute 2 PFSH: Medical History Viral upper respiratory tract infection with cough Dental caries Acute bronchitis and bronchiolitis Hx of intrinsic asthma Hypertension, uncontrolled COVID Positive test 06/18/2021. Essential (primary) hypertension Surgical History History of umbilical hernia repair (05/28/20) Recurrent Status post right inguinal hernia repair History of umbilical hernia repair Family History Mother Cancer Lung Grandmother Cancer Breast Social History Smoking and tobacco/nicotine status: current every day tobacco/nicotine user Alcohol intake: current Household members: significant other Current gender identity: Female Vitals/I&O/Wt Last Vital Signs Temp 97.7 F 03/19/25 16:23 Pulse 101 H 03/19/25 16:23 Resp 18 03/19/25 16:23 BP 148/95 03/19/25 16:47 Pulse Ox 99 03/19/25 17:43 O2 Del Method Room Air 03/19/25 17:43 Weight last 48 hrs Weight 92.533 kg Physical Exam 2 Const: EXAM LIMITATIONS: altered mental status ORIENTATION/CONSCIOUSNESS: Y es awake, Yes oriented to person and Yes confused; not oriented to place and not oriented to time Eye: COMMON NORMALS: Equal, round and reactive pupils present OTHER: She does track me around the room as I moved [id number] No tremor or spasms noted of the neck muscles, or limb of the facial muscles Neck/C-Spine: COMMON NORMALS: no lymphadenopathy Lymph: LYMPHATIC: no lymphadenopathy noted Resp: COMMON NORMALS: normal respiratory effort, No retractions, No use of accessory muscles and clear to auscultation bilaterally AUSCULTATION: clear to auscultation bilaterally Cardio: COMMON NORMALS: regular rate, regular rhythm, S1 normal heart sound present and S2 normal heart sound present RATE: regular rate RHYTHM: r egular rhythm HEART SOUNDS: S1 normal heart sound present and S2 normal heart sound present GI: COMMON NORMALS: Normal to inspection, nondistended, normoactive bowel sounds present, Soft to palpation and non-tender Extremity: COMMON NORMALS: no pedal edema Neuro: OTHER: Difficulty due to neurologic testing - No facial droop that I can discern, no slurring of her words - Her behaviors - She is able to periodically lift her a juarez above her head, displaying spasmodic like motion, - At times she rests both her hands on h er chest without any spasms or shaking- like episode - Both hands -Cannot discern any focal weakness - She does have good strength is at time s she is able to push me away and push her daughter away with both arms - She is able to sit up in bed, her spas matic motions resolved she is able to talk to her daughter and gets upset with her about things that she is staying in the room - And then goes back to her spasmatic mo tions - She has good strength in bilateral ext remities, she is lifting both legs off the gurney trying to get up out of bed, nursing staff report that she got up and tried to get off the gurney and walk the hallway -She does have spasmodic motion bilatera l lower extremities, I cannot discern a focal weakness - No urinary continence, no bowel incont inence - Babinski is downward going bilaterally -She localizes pain, -She is able to say her daughter's name, -She gets upset at her daughter for thin graciela things that she is saying on her phone when she is called family members over the phone Data 03/19/25 16:40 03/19/25 16:40 A&P Assessment and plan 1. Altered mental status: Plan: - Patient has been using 7 tabs, 6 to 7 pills daily for the last year and has stopped cold turkey - Active ingredient is 7 hydroxymitragnine, is an antagonist u opioid receptor partial agonist, and has opiate like analgesic effect and behavioral effects attributed kratom - Possible withdrawal? Will start Precedex drip, clonidine patch which will also help with her blood pressure as she cannot swallow pills - Will monitor closely in ICU - Daughter does report a history of alcoholism possible alcohol withdrawal? [facility] protocol - Will check ammonia levels, B12, folate, TSH, blood cultures, inflammatory markers, ABG -Possible seizure-like episode? Will do a trial of Keppra, consider EEG based on clinical progress - CT head has been ordered by ER provider -Will consider neurology consultation based on medical progress - Urine is positive for marijuana -Will monitor mentation closely -Neurochecks, nasal scale, aspiration precautions - Full code - Lovenox for DVT prophylaxis PDMP PDMP Reviewed: Last Reviewed 03/19/25 18:08 by Jared Galindo MD Attestations 2 Medical Necessity Statement*: Patient requires patient for altered mental status, inpatient, greater than 2 midnights Diagnoses Altered mental status R41.82
[2025-03-19 18:25] LABS: INR 0.88 (0.8-1.2); Prothrombin Time 12.60 SECONDS (12.1-14.9)
[2025-03-19] MEDS: haloperidol inj 5 mg/mL INJ 1 mL IVP (18:25)
[2025-03-19 18:37] LABS: ABG PCO2 35.1 mmHg (35-45); ABG PH Result 7.49 (7.35-7.45); Arterial Blood Gas Hematocrit 42.8 % (37-47); Blood Gas Operator Identificat AMH; Blood Gas Sample Site Brachial, left; Blood Gas Sample Type Arterial; HCO3 ABG 26.7 mmol/L (22-26); PO2 ABG 77.3 mmHg (80.0-100.0); PO2 FiO2 Ratio Arterial Blood 368
[2025-03-19 18:39] LABS: Procalcitonin 0.02 ng/mL (0-0.5)
[2025-03-19 18:43] LABS: Troponin(5th) Baseline 8 ng/L (0-10)
[2025-03-19 18:44] LABS: Lactic Sepsis W/Reflex 1.1 mmol/L (0.5-2.2)
[2025-03-19] MEDS: levETIRAcetam 1,000 MG/100 ML PREMIX 400 MG IV (19:02)
[2025-03-19] MEDS: dexmedeTOMIDine 0.9 % NaCL 400 MCG/100 ML PREMIX IV (19:36)
[2025-03-19 20:59] LABS: Vitamin B12 323 pg/mL (232-1245)
[2025-03-19 21:33] LABS: Ammonia 26 umol/L (11-51)
[2025-03-19] MEDS: lidocaine 1% 5 ML in potassium chloride premix 100 ML 52.5 ML IV (22:00)
[2025-03-19] MEDS: dexmedeTOMIDine 0.9 % NaCL 400 MCG/100 ML PREMIX 23.13 MCG IV (23:15)
[2025-03-19 23:51] LABS: Estmated Average Glucose 103; Hemoglobin A1C 5.2 % (4.0-6.0)
[2025-03-20] VITALS (76 sets, daily range): BP systolic 115–158; BP diastolic 73–106; PULSE 52–94; RESP 15–40; TEMP 37.1–38.3; O2SAT 91–100; BMI 35.4
[2025-03-20 00:01] LABS: Cholesterol 107 mg/dL (0-200); HDL Cholesterol 30 mg/dL (60-100); Thyroid Stimulating Hormone 0.39 uIU/mL (0.27-4.20); Triglycerides 166 mg/dL (0-150)
[2025-03-20] MEDS: pantoprazole 40 mg SDV IVP ×2 (00:19→22:42)
[2025-03-20] MEDS: thiamine 100 mg/mL 2mL SDV IVP (00:27)
--- NOTE | 2025-03-20 00:46 | PC.NURSE ---
2315: Spoke with Dr. Ramirez in reference to the patient's condition upon arrival to the ICU. Patient was not A&O, responding with abnormal flexion to painful stimuli, GCS of 6, and agonal respirations. Dr. Ramirez would reevaluate with ER physician the option of emergent intubation for airway protection. 0040: Spoke with Dr. Ramirez again in reference to patient condition. Patient briefly able to give her name, responded appropriately to painful stimuli, and respirations are less agonal in nature. Precedex was titrated down in several increments. Received order to monitor patient closely, and be ready for emergent intubation if patient condition declines, and to update Dr. ramirez.
[2025-03-20 02:03] LABS: ABG PCO2 36.8 mmHg (35-45); ABG PH Result 7.45 (7.35-7.45); Alveolar-Arterial Oxygen Gradi 1.9 mmHg (5-10); Arterial Blood Gas Hematocrit 46.4 % (37-47); Blood Gas LPM 2.0 %; Blood Gas Operator Identificat SAM; Blood Gas Sample Site Brachial, right; Blood Gas Sample Type Arterial; Carboxyhemoglobin 1.4 %THgb (0.4-20.1); Glucose Level-ABG 114.0 mg/dL (70-115); HCO3 ABG 25.7 mmol/L (22-26); Ionized Calcium Level - ABG 1.2 mmol/L (1.1-1.4); Methemoglobin 1.0 % (0.4-1.5); Oxygen Saturation ABG 97.3; PO2 ABG 88.7 mmHg (80.0-100.0); Potassium Level - ABG 3.0 mmol/L (3.5-5.0); Sodium Level - ABG 143.0 mmol/L (131-143)
--- NOTE | 2025-03-20 02:38 | PC.NURSE ---
Unable to complete NIH stroke scale at time of admission due to patient's mentation and AMS.
[2025-03-20 04:53] LABS: Hematocrit 40.2 % (36-47); Hemoglobin 14.00 g/dL (11.27-16.99); Mean Corpuscular HGB Conc 34.8 g/dL (30-55); Mean Corpuscular Hemoglobin 32.2 pg (27-33); Mean Corpuscular Volume 92.4 fl (85-98); Nucleated Red Blood Cells % 0 %; Platelet Count 279 10^3/cmm (157-399); Red Blood Count 4.35 10^6/uL (3.85-5.65); White Blood Count 11.14 10^3/uL (3.29-11.43)
--- NOTE | 2025-03-20 05:14 | PC.RESP ---
Pt would not allow RT and RN to do EKG. Thrashing and kicking.
[2025-03-20 05:24] LABS: Alanine Aminotransferase 14 U/L (0-33); Albumin Level 3.8 g/dL (3.5-5.2); Alkaline Phosphatase 72 U/L (35-105); Anion Gap 15.0 (5-19); Aspartate Amino Transferase 22 U/L (0-32); Blood Urea Nitrogen 6 mg/dL (6-20); Calcium 8.6 mg/dL (8.5-10.5); Carbon Dioxide 24 mmol/L (22-29); Chloride 106 mmol/L (98-107); Creatinine Clr Calc Pharmacy 129.8745; Globulin 2.3 g/dL (1.3-4.6); Glucose 107 mg/dL (65-115); Magnesium 2.1 mg/dL (1.7-2.3); Osmolality Calculated 292 mOsm/kg (285-295); Potassium 3.0 mmol/L (3.5-5.1); Sodium 142 mmol/L (136-145); Total Protein 6.1 g/dL (6.6-8.7)
[2025-03-20] MEDS: levETIRAcetam 1,000 MG/100 ML PREMIX 400 MG IV (06:45)
[2025-03-20] MEDS: folic acid 1 MG, multivitamin inj 10 ML, thiamine 100 MG in sodium chloride 0.9% 1,000 ML 252.8 MG IV (07:50)
[2025-03-20] MEDS: lidocaine 1% 5 ML in potassium chloride premix 100 ML 52.5 ML IV (07:52)
--- NOTE | 2025-03-20 11:10 | PC.NURSE ---
Mental status: Upon morning assessment, patient was lethargic and would have brief periods of intense fidgeting. NUrse continued precedex. At approximtely 0900, patient started to become more awake and alert, Calm, cooperative, oriented to person, place, time, and situation. Titrated off of precedex. Will continue to monitor.
--- NOTE | 2025-03-20 14:15 | PC.NURSE ---
Patient communication: Nurse had discussion about Kratom use with the patient. Patient states that she has been using Kratom for 6 months to a year and recently she has started to realize that it had become an addiction. States that she was constantly thinking about using it, and the first thing she would do when she wakes up in the morning is go to the convenience store and buy some. Was keeping her use hidden from family members. She decided to quit because of this. States that she didn't realize how addictive/dangerous it could be due to the fact that anyone can easily buy it from a gas station or liquor store.
--- NOTE | 2025-03-20 17:10 | P.PN_ITS ---
Subjective 2 Subjective: Patient was seen this morning, does report diarrhea, alert oriented x 3, follow commands, she denies any suicidal ideation, suicide attempt, no homicidal ideation, she does confirm that she has been using 7 tabs 2-3 tabs daily, for the last year and she quit cold turkey about a few days ago, denies history of alcoholism, does report marijuana use, denies any other drug use, does report feeling down or depressed at times, no lightheadedness, no dizziness, no focal weakness, no facial droop, slurring her words, no history of seizures, Vitals/I&O/Wt Last Vital Signs Temp 100.2 F H 03/20/25 13:15 Pulse 64 03/20/25 15:45 Resp 30 H 03/20/25 15:45 BP 138/93 03/20/25 15:45 Pulse Ox 96 03/20/25 15:45 O2 Del Method Nasal Cannula 03/20/25 08:00 O2 Flow Rate 2 03/20/25 08:00 03/20/25 03/20/25 03/20/25 06:59 14:59 22:59 Intake Total 1165.916 / 5969.545 6359.878 / 1739.878 Output Total 250 / 250 900 / 900 Balance 915.916 / 1087.706 839.878 / 839.878 Weight last 48 hrs Weight 93.5 kg Weight 93.5 kg Weight 92.533 kg Physical Exam 2 Const: COMMON NORMALS: no acute distress and patient oriented x3 Eye: COMMON NORMALS: Equal, round and reactive pupils present PUPIL: Yes Equal, round and reactive pupils present Resp: COMMON NORMALS: normal respiratory effort, No retractions, No use of accessory muscles and clear to auscultation bilaterally AUSCULTATION: clear to auscultation bilaterally Cardio: COMMON NORMALS: regular rate, regular rhythm, S1 normal heart sound present and S2 normal heart sound present RATE: regular rate RHYTHM: r egular rhythm HEART SOUNDS: S1 normal heart sound present and S2 normal heart sound present GI: COMMON NORMALS: Normal to inspection, nondistended, normoactive bowel sounds present and non-tender Extremity: COMMON NORMALS: no pedal edema Neuro: COMMON NORMALS: patient oriented x3, CN's II-XII intact bilaterally and moves all extremities Psych: COMMON NORMALS: mental status grossly normal Data 03/20/25 03:45 03/20/25 03:45 Micro: Microbiology 03/19/25 21:08 Blood Culture - Preliminary Blood SPECIMEN COLLECTED 03/19/25 21:10 Blood Culture - Preliminary Blood SPECIMEN COLLECTED A&P Assessment and plan 1. Altered mental status: Plan: - Patient has been using 7 tabs, 3/4 pills daily for the last year and has stopped cold turkey - Active ingredient is 7 hydroxymitragnine, is an antagonist u opioid receptor partial agonist, and has opiate like analgesic effect and behavioral effects attributed kratom - Possible withdrawal? Continue clonidine wean off Precedex - Moved out of ICU - Daughter does report a history of alcoholism possible alcohol withdrawal? [facility] protocol - Will check ammonia levels, B12, folate, TSH, blood cultures, inflammatory markers, within normal limits -Possible seizure-like episode? Unlikely, stop Keppra, likely withdrawal from 7 tabs as patient clinically improved with Precedex, clonidine - CT head within normal limits - Urine is positive for marijuana -Will monitor mentation closely -Neurochecks, nasal scale, aspiration precautions - Full code - Lovenox for DVT prophylaxis PDMP PDMP Reviewed: Last Reviewed 03/19/25 18:08 by Jared Galindo MD Attestations 2 Medical Necessity Statement*: Patient requires hospitalization for altered mental status, drug withdrawal Diagnoses Altered mental status R41.82
--- NOTE | 2025-03-20 17:55 | PC.NURSE ---
Shift SUmmary: Titrated off of precedex. Patient is awake, alert, oriented to person, place, time, and situation. Frequently up to the chair or bathroom with minimal assistance. HOme medications Metoprolol and amlodipine started. Still has other home blood pressure medications which have not yet be started. Med surge overflow.
--- NOTE | 2025-03-20 18:10 | W.PM.PSYCONS ---
Providers/Reason for Consult Consulting Physican/Specialty*: Sadaf/Psychiatry Reason for Consult*: substance misuse Attending Physician: Jared Galindo MD Primary Care Provider: Betsy Mitchell DO Psych Consult HPI History of Present Illness Maria Victoria Ferrari is a 44 year old female admitted to ICU with a history of altered mental status and a past history of hypertension. The patient was seen in the intensive care unit today by this job specification writer. The patient had endorsed having reported being introduced to [facility] initially approximately 8 or 9 months ago and states for the past 4 to 5 months she has been taking 7-OH mytragynine over the counter. The patient had reported that she had initially taken this OTC for helping with pain but reports that her tolerance has increased and she is taking 3 tablets daily for the past several months. She reports that she has reported significant withdrawals within 6 to 7 hours after taking the medication. She had reported that she felt nauseous and extremely anxious when she was having these withdrawal symptoms. She had also reported that she has only managed his be without her 7 hydroxy's for more than 1 day before she obtained another 7 hydroxy to avoid withdrawal symptoms. She had denied any history of other opiate use although she had stated that when she had been prescribed opiates before that she liked them . She reports that she did not have a recollection about what it happened here in the hospital as she denied having any recollection of the agitation or mood instability that was witnessed that required her to receive Precedex to treat her agitation. She had reported no history of addiction to other substances. She had reported in the past having depression in the past along with anxiety but stated that she was currently not taking any medications. She reports having no thoughts of hurting herself or others. She had reported no prior history of psychosis. The patient had endorsed no worsening paranoia or problems with paranoia although she had stated that she had been keeping her use of 7 hydroxy from her daughter until recently. Psychiatric history: None reported with no inpatient or outpatient history reported although she had reportedly tried antidepressants before. Substance abuse history: She reports no history of substance abuse treatment. She reports that she has been using marijuana for several years and denied any alcohol use. She denied any stimulant abuse in the past. PDMP was reviewed and showed no history of any controlled substances prescribed in [facility] recently. Medical history: As stated Allergies: amoxicillin, clavulinic acid, lisinopril Current medications: As stated Family psychiatric history: Notable for addiction as her mother had a history of stimulant abuse. Social history: The patient lives in [place] with her and her oldest daughter. 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 Meds Home Medications and Allergies Home Medications ?Medication ?Instructions ?Recorded ?Confirmed ?Last Taken ?Type acetaminophen 500 mg tablet 500 mg PO Q6H PRN Pain 07/26/21 03/20/25 Unknown History (Tylenol Extra Strength) amlodipine 10 mg tablet 10 mg PO DAILY #60 tabs 01/07/22 03/20/25 Unknown Rx blood pressure monitor (Blood #1 ea 01/07/22 03/20/25 Unknown Rx Pressure Kit) chlorthalidone 25 mg tablet 25 mg PO DAILY #60 tabs 01/07/22 03/20/25 Unknown Rx fluticasone propionate 50 1 spray intranasal DAILY PRN nasal 05/04/23 03/20/25 Unknown Rx mcg/actuation nasal congestion #16 grams spray,suspension (Flonase Allergy Relief) levocetirizine 5 mg tablet 5 mg PO DAILY PRN allergy symptoms 10/28/24 03/20/25 Unknown Rx (Allergy Relief (levocetirizine)) #30 tabs diazepam 2 mg tablet (Valium) 2 mg PO BID PRN withdrawal 03/19/25 Unknown Rx symptoms #10 tabs ondansetron 4 mg disintegrating 4 mg PO Q6H PRN nausea and 03/19/25 Unknown Rx tablet vomiting #14 tabs atorvastatin 80 mg tablet 80 mg PO DAILY 03/20/25 03/20/25 Unknown History escitalopram oxalate 10 mg tablet See Rx Instructions .Route .COMPLEX 03/20/25 03/20/25 Unknown History hydralazine 50 mg tablet 50 mg PO TID 03/20/25 03/20/25 Unknown History losartan 100 mg tablet 100 mg PO DAILY 03/20/25 03/20/25 Unknown History medroxyprogesterone 150 mg/mL 150 mg IM Q90D 03/20/25 03/20/25 Unknown History intramuscular suspension meloxicam 15 mg tablet 15 mg PO DAILY 03/20/25 03/20/25 Unknown History metoprolol tartrate 25 mg tablet 25 mg PO BID 03/20/25 03/20/25 Unknown History Allergies Allergy/AdvReac Type Severity Reaction Status Date / Time amoxicillin (From Augmentin) Allergy ALGY-Difficulty Verified 03/16/25 10:15 Swallowing clavulanic acid (From Allergy ALGY-Difficulty Verified 03/16/25 10:15 Augmentin) Swallowing lisinopril Allergy ALGY-Difficulty Verified 03/16/25 10:15 Swallowing Current Medications Current Medications Generic Name Dose Route Start Last Admin Trade Name Freq PRN Reason Stop Dose Admin Amlodipine Besylate 10 mg 03/20/25 12:57 03/20/25 13:47 Amlodipine 10 Mg Tablet PO 10 mg DAILY KARLO Administration Clonidine HCl 1 patch 03/20/25 17:30 03/20/25 18:00 Clonidine 0.1 Mg/24 Hr Patch TRANSDERMA 1 patch Q7D KARLO Administration Enoxaparin Sodium 40 mg 03/20/25 11:00 03/20/25 12:13 Enoxaparin 40 Mg/0.4 Ml Syringe SUBCUT 40 mg Q24H KARLO Administration Folic Acid 1 mg 03/20/25 05:00 03/20/25 05:33 Folic Acid 1 Mg Tablet PO Not Given DAILY KARLO Metoprolol Tartrate 25 mg 03/20/25 12:56 03/20/25 13:47 Metoprolol Tartrate 25 Mg Tablet PO 25 mg BID@0900,2100 KARLO Administration Multivitamins Therapeutic 1 tab 03/20/25 05:00 03/20/25 05:33 Multivitamin Therapeutic Tablet PO Not Given DAILY KARLO Pantoprazole Sodium 40 mg 03/19/25 23:23 03/20/25 00:19 Pantoprazole 40 Mg Sdv IVP 40 mg Q24H KARLO Administration PFSH NPU PFSH: Medical History (Updated 03/20/25 @ 18:37 by Gio Talavera MD) Viral upper respiratory tract infection with cough Dental caries Acute bronchitis and bronchiolitis Hx of intrinsic asthma Hypertension, uncontrolled COVID Positive test 06/18/2021. Essential (primary) hypertension Surgical History History of umbilical hernia repair (05/28/20) Recurrent Status post right inguinal hernia repair History of umbilical hernia repair Family History Mother Cancer Lung Grandmother Cancer Breast Social History Smoking and tobacco/nicotine status: current every day tobacco/nicotine user Alcohol intake: current Household members: significant other Current gender identity: Female Mental Status Exam MSE Comments: Patient is a casually dressed female seen in the hospital bed who was disheveled in appearance and appeared older than her stated age with fair eye contact. She was friendly and cooperative on interview. There was no evidence of any abnormal involuntary motor movements, tics, or tremors appreciated. Her speech was normal in regards to rate, rhythm, and prosody. Her mood was described as better. Her affect was brighter. Her thought process was linear, logical, and goal-directed. Her thought content revealed no suicidal or homicidal ideation. There was no evidence of any delusional thinking. She did not appear to be responding to internal stimuli. Her attention span appeared fair. Her insight was limited. Her judgment was poor but appeared to be improving. Her impulse control appeared adequate. She was alert and oriented to person, place, time, and situation. Her recent and remote memory appeared grossly intact. Vitals/I&O/Wt Last Vital Signs Temp 100.9 F H 03/20/25 17:45 Pulse 79 03/20/25 18:00 Resp 23 H 03/20/25 17:45 BP 158/106 03/20/25 18:00 Pulse Ox 96 03/20/25 17:45 O2 Del Method Nasal Cannula 03/20/25 08:00 O2 Flow Rate 2 03/20/25 08:00 03/20/25 03/20/25 03/20/25 06:59 14:59 22:59 Intake Total 1165.916 / 0795.017 8852.878 / 5999.563 8989.2 / 2856.078 Output Total 250 / 250 900 / 900 Balance 915.916 / 1087.706 839.878 / 390.954 7250.2 / 1956.078 Weight last 48 hrs Weight 93.5 kg Weight 93.5 kg Weight 92.533 kg Data NPU 03/20/25 03:45 03/20/25 03:45 Micro: Microbiology 03/19/25 21:08 Blood Culture - Preliminary Blood SPECIMEN COLLECTED 03/19/25 21:10 Blood Culture - Preliminary Blood SPECIMEN COLLECTED Microbiology 03/19/25 21:08 Blood Blood Culture - Preliminary SPECIMEN COLLECTED 03/19/25 21:10 Blood Blood Culture - Preliminary SPECIMEN COLLECTED A&P Assessment and plan 1. 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 She appears to have had significant side effects from possible overdose on this medication although she relates this as having been due to 7 hydroxy withdrawal instead. 1. Psychoeducation was provided to the patient at this time. She was informed of the potential for psychosis, increased risk of seizures, and other significant side effects associated with taking this medication in combination with her current medication regimen. The 7 hydroxy is 10 times more powerful than Kratom and she was urged to avoid these products at all costs. 2. Recommend providing naloxone emergently on discharge to this patient as it would reverse effects of her 7-OH mytragynine use. 3. She may be candidate for suboxone use at low doses if she resumes misuse of this opiate (7-OH). 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
[2025-03-20 18:54] LABS: C.Diff PCR (Lab) POSITIVE (Negative)
[2025-03-20 18:56] LABS: Clostridioides Difficile Toxin NEGATIVE (Negative)
[2025-03-21] VITALS (9 sets, daily range): BP systolic 142–153; BP diastolic 83–106; PULSE 64–81; RESP 18–35; TEMP 36.9–37.2; O2SAT 96–99
[2025-03-21] MEDS: MELATONIN 3 MG TABLET 6 MG PO (00:33)
[2025-03-21] MEDS: ondansetron 2 mg/ML SDV 2 mL 4 MG IVP (00:42)
[2025-03-21 03:40] LABS: Hematocrit 38.3 % (36-47); Hemoglobin 13.10 g/dL (11.27-16.99); Mean Corpuscular HGB Conc 34.2 g/dL (30-55); Mean Corpuscular Hemoglobin 31.3 pg (27-33); Mean Corpuscular Volume 91.4 fl (85-98); Nucleated Red Blood Cells % 0 %; Platelet Count 263 10^3/cmm (157-399); Red Blood Count 4.19 10^6/uL (3.85-5.65); White Blood Count 8.34 10^3/uL (3.29-11.43)
[2025-03-21 03:57] LABS: Alanine Aminotransferase 18 U/L (0-33); Albumin Level 3.7 g/dL (3.5-5.2); Alkaline Phosphatase 73 U/L (35-105); Anion Gap 15.7 (5-19); Aspartate Amino Transferase 18 U/L (0-32); Blood Urea Nitrogen 5 mg/dL (6-20); Calcium 8.5 mg/dL (8.5-10.5); Carbon Dioxide 21 mmol/L (22-29); Chloride 104 mmol/L (98-107); Creatinine Clr Calc Pharmacy 129.8745; Globulin 2.4 g/dL (1.3-4.6); Glucose 125 mg/dL (65-115); Magnesium 2.0 mg/dL (1.7-2.3); Osmolality Calculated 285 mOsm/kg (285-295); Sodium 138 mmol/L (136-145); Total Protein 6.1 g/dL (6.6-8.7)
[2025-03-21 04:49] LABS: Potassium 2.7 mmol/L (3.5-5.1)
[2025-03-21] MEDS: lidocaine 1% 5 ML in potassium chloride premix 100 ML 26.25 ML IV (05:31)
[2025-03-21] MEDS: multivitamin therapeutic Tablet 1 TAB PO (05:32)
[2025-03-21 13:53] LABS: Alanine Aminotransferase 20 U/L (0-33); Albumin Level 4.1 g/dL (3.5-5.2); Alkaline Phosphatase 80 U/L (35-105); Anion Gap 17.3 (5-19); Aspartate Amino Transferase 19 U/L (0-32); Blood Urea Nitrogen 4 mg/dL (6-20); Calcium 8.9 mg/dL (8.5-10.5); Carbon Dioxide 21 mmol/L (22-29); Chloride 104 mmol/L (98-107); Creatinine Clr Calc Pharmacy 157.6489; Globulin 2.7 g/dL (1.3-4.6); Glucose 143 mg/dL (65-115); Osmolality Calculated 287 mOsm/kg (285-295); Potassium 3.3 mmol/L (3.5-5.1); Sodium 139 mmol/L (136-145); Total Protein 6.8 g/dL (6.6-8.7)
[2025-03-23 05:46] LABS: Bacillus cereus group Not Detected (NOT DETECT); Bacillus subtillis group Not Detected (NOT DETECT); Corynebacterium Not Detected (NOT DETECT); Cutibacterium acnes (P.acnes) Not Detected (NOT DETECT); Enterococcus faecalis Not Detected (NOT DETECT); Enterococcus faecium Not Detected (NOT DETECT); Listeria Not Detected (NOT DETECT); Micrococcus Not Detected (NOT DETECT); Pan Candida Not Detected (NOT DETECT); Pan Gram-Negative Not Detected (NOT DETECT); Staphylococcus epidermidis Not Detected (NOT DETECT); Staphylococcus lugdunensis Not Detected (NOT DETECT); Staphylococcus species Not Detected (NOT DETECT); Streptococcus anginosus group Not Detected (NOT DETECT); Streptococcus pyogenes Not Detected (NOT DETECT); Streptococcus species Not Detected (NOT DETECT)
--- NOTE | 2025-03-30 14:45 | P.DS_ITS ---
Discharge Providers Date of Admission: 03/19/25 18:09 Date of Discharge: March 30, 2025 Attending Provider at Admission: Jared Galindo MD Attending Provider at Discharge: Jared Galindo MD Primary Care Provider: Betsy Mitchell DO Diagnoses at Discharge Discharge Diagnosis 1. 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 Currently patient is alert to person, not to place, not to time, her daughter is at bedside, I am not able to get history from Maria Victoria, but her daughter is at bedside who helps in history taking. Patient blood pressure 148/95, pulse 101, respiratory rate 18, temperature 97.7, she 99% on room air, she is having jerking movement of her bilateral upper and lower extremities, periodically she will try to get up out of bed, periodically she will answer yes or no questions, she will periodically get upset at her daughter at bedside who is trying to prevent her from getting out of bed, nursing staff tell me that at one point he she did get up out of bed and walked in the hallway. Clinically I cannot see any facial droop, she does say a few words like her daughter's name I cannot discern any slurring of her words, she is moving bilateral upper and lower extremities, spontaneously, she seems to have good strength as she is able to push me out of the way at times, no urinary incontinence, no bowel incontinence, pupils are equal round reactive to light, she does track me, she does not localize pain does not withdraw from pain, her GCS score is 12, I cannot discern any fasciculations, no clonus, examination is difficult as she has spontaneous movement of bilateral upper and lower extremities, does not follow commands for thorough neurologic testing, she has jerking movements of the upper extremities, lower extremities, not of her head, not of her tongue, she periodically stops and gets upset with her daughter who is talking to family members over the phone about what is being discussed over the phone. Patient's daughter tells me that Maria Victoria has 3 daughters, her only medical history is a history of hypertension, known history of CAD no history of strokes, she is , she works at a [employer] 4 days a week, for the last year she has been using 7 tabs, 6 to 7 pills daily over the last year, and yesterday she quit turkey, she was telling family numbers that she felt like she was having withdrawals, had reported nausea, feeling anxious. Daughter does tell me that she does smoke cigarettes, does smoke marijuana. In addition she does drink alcohol nightly, no history of alcohol withdrawals last drink was last night. No reported drug use. No reported suicidal or homicidal ideation. According to daughter, she has become much more secretive, much more withdrawn, she has had more paranoia, she has been hiding text on her phone, no known opiate use or overdose or withdrawal history, I cannot see any lacrimation clinically or any tremors, no rhinorrhea she does have frequent yawning, does appear to be restless, Patient was [facility] to [facility] -For altered mental status secondary to withdrawal from 7 tabs, 7 hydroxymitragynine(7-OH), using multiple times throughout the day stopping cold turkey - She was monitored in the ICU, received clonidine, Precedex drip, IV fluids - Overall withdrawal resolved - Alert oriented x 3, follow commands, no focal neurologic deficits, no seizure- like episodes -Psychiatry consulted - Advised to abstain from 7 tabs use - Discussed morbidity and mortality associated - Discharged with Narcan Patient was found to have C. difficile colitis, treated with p.o. vancomycin discharged on p.o. vancomycin, discussed handwashing, cleaning all surfaces -avoid alcohol -avoid 7tabs -avoid marijuanna use -avoid drug use -please handwash -please keep toillettes clean -please use antibiotics as prescribed -hydrate well Physical Exam Const: COMMON NORMALS: no acute distress and patient oriented x3 Resp: COMMON NORMALS: normal respiratory effort, No retractions, No use of accessory muscles and clear to auscultation bilaterally AUSCULTATION: clear to auscultation bilaterally Cardio: COMMON NORMALS: regular rate, regular rhythm, S1 normal heart sound present and S2 normal heart sound present RATE: regular rate RHYTHM: regular rhythm HEART SOUNDS: S1 normal heart sound present and S2 normal heart sound present GI: COMMON NORMALS: Normal to inspection, nondistended, normoactive bowel sounds present and non-tender Extremity: COMMON NORMALS: no pedal edema Neuro: COMMON NORMALS: patient oriented x3 Psych: COMMON NORMALS: mental status grossly normal Discharge Data Studies Completed and Pending Completed Studies During Hospitalization Category Date Time Status CT head wo con* [id number] Stat Cat Scan 03/19/25 17:38 Completed Radiology Impressions Head CT 03/19/25 17:38 IMPRESSION: No acute intracranial abnormality. ASSESSMENT: ASPECTS ([place] Stroke Program Early CT Score) is 10. ADDENDUM: 03/19/25 1592 Addendum: THIS REPORT CONTAINS FINDINGS THAT MAY BE CRITICAL TO PATIENT CARE. The findings were acknowledged by Dr. Durant at 6:37 PM Shad 03/19/2025 through the operation center. Laboratory Results WBC 8.34 10^3/uL (3.29-11.43) 03/21/25 03:18 RBC 4.19 10^6/uL (3.85-5.65) 03/21/25 03:18 Hgb 13.10 g/dL (11.27-16.99) 03/21/25 03:18 Hct 38.3 % (36-47) 03/21/25 03:18 MCV 91.4 fl (85-98) 03/21/25 03:18 MCH 31.3 pg (27-33) 03/21/25 03:18 MCHC 34.2 g/dL (30-55) 03/21/25 03:18 RDW 12.6 % (12.1-15.1) 03/21/25 03:18 Plt Count 263 10^3/cmm (157-399) 03/21/25 03:18 MPV 10.2 fL (7.4-10.4) 03/21/25 03:18 Neut % (Auto) 58.1 % 03/21/25 03:18 Lymph % (Auto) 31.1 % 03/21/25 03:18 Merrick % (Auto) 9.4 % 03/21/25 03:18 Eos % (Auto) 0.4 % 03/21/25 03:18 Baso % (Auto) 0.5 % 03/21/25 03:18 Neut # (Auto) 4.86 10^3/uL (1.8-7.7) 03/21/25 03:18 Lymph # (Auto) 2.6 10^3/uL (0.8-4.8) 03/21/25 03:18 Merrick # (Auto) 0.8 10^3/uL (0.2-0.9) 03/21/25 03:18 Eos # (Auto) 0.0 10^3/uL (0.0-0.8) 03/21/25 03:18 Baso # (Auto) 0.0 10^3/uL (0.0-0.1) 03/21/25 03:18 Nucleated RBC % (auto) 0 % 03/21/25 03:18 Nucleated RBCs # 0.0 /100WBC 03/21/25 03:18 ESR 6 mm/hr (0-15) 03/19/25 16:40 PT 12.60 SECONDS (12.1-14.9) 03/19/25 16:40 INR 0.88 (0.8-1.2) 03/19/25 16:40 Specimen Type Arterial 03/20/25 01:52 Sample Site Brachial, right 03/20/25 01:52 ABG pH 7.45 (7.35-7.45) 03/20/25 01:52 ABG pCO2 36.8 mmHg (35-45) 03/20/25 01:52 ABG pO2 88.7 mmHg (80.0-100.0) 03/20/25 01:52 ABG PO2/FiO2 Ratio 368 03/19/25 18:25 ABG HCO3 25.7 mmol/L (22-26) 03/20/25 01:52 ABG O2 Saturation 97.3 03/20/25 01:52 ABG Base Excess 1.9 mmol/L (-2.0-2.0) 03/20/25 01:52 Bassam Test N/a 03/20/25 01:52 A-a O2 Gradient 1.9 mmHg (5-10) L 03/20/25 01:52 Hematocrit 46.4 % (37-47) 03/20/25 01:52 Hgb O2 Saturation 94.9 % (95-100) L 03/20/25 01:52 Carboxyhemoglobin 1.4 %THgb (0.4-20.1) 03/20/25 01:52 Methemoglobin 1.0 % (0.4-1.5) 03/20/25 01:52 Total Hemoglobin 15.1 g/dL (12-16) 03/20/25 01:52 Sodium 143.0 mmol/L (131-143) 03/20/25 01:52 Potassium 3.0 mmol/L (3.5-5.0) L 03/20/25 01:52 Glucose 114.0 mg/dL (70-115) 03/20/25 01:52 Ionized Calcium 1.2 mmol/L (1.1-1.4) 03/20/25 01:52 O2 Delivery Device Nc 03/20/25 01:52 O2 Liters/Min 2.0 % 03/20/25 01:52 FiO2 21.0 % 03/19/25 18:25 Acoustic Warfare Analyst ID Dominic 03/20/25 01:52 Sodium 139 mmol/L (136-145) 03/21/25 13:29 Potassium 3.3 mmol/L (3.5-5.1) L 03/21/25 13:29 Chloride 104 mmol/L (98-107) 03/21/25 13:29 Carbon Dioxide 21 mmol/L (22-29) L 03/21/25 13:29 Anion Gap 17.3 (5-19) 03/21/25 13:29 BUN 4 mg/dL (6-20) L 03/21/25 13:29 Creatinine 0.5 mg/dL (0.5-0.9) 03/21/25 13:29 GFR Calculation 132.8 mL/min (90-130) H 03/21/25 13:29 Glucose 143 mg/dL (65-115) H 03/21/25 13:29 POC Glucose 125 mg/dL (70-110) H 03/20/25 07:45 Estimat Average Glucose 103 03/19/25 16:40 Hemoglobin A1c 5.2 % (4.0-6.0) 03/19/25 16:40 Calculated Osmolality 287 mOsm/kg (285-295) 03/21/25 13:29 Lactic Acid 1.1 mmol/L (0.5-2.2) 03/19/25 16:40 Calcium 8.9 mg/dL (8.5-10.5) 03/21/25 13:29 Phosphorus 2.4 mg/dL (2.5-4.5) L 03/21/25 03:18 Magnesium 2.0 mg/dL (1.7-2.3) 03/21/25 03:18 Total Bilirubin 0.5 mg/dL (0.15-1.2) 03/21/25 13:29 AST 19 U/L (0-32) 03/21/25 13:29 ALT 20 U/L (0-33) 03/21/25 13:29 Alkaline Phosphatase 80 U/L (35-105) 03/21/25 13:29 Ammonia 26 umol/L (11-51) 03/19/25 21:08 Troponin T Baseline 8 ng/L (0-10) 03/19/25 16:40 C-Reactive Protein 3.0 mg/L (0.0-4.9) 03/19/25 16:40 Total Protein 6.8 g/dL (6.6-8.7) 03/21/25 13:29 Albumin 4.1 g/dL (3.5-5.2) 03/21/25 13:29 Globulin 2.7 g/dL (1.3-4.6) 03/21/25 13:29 Triglycerides 166 mg/dL (0-150) H 03/19/25 16:40 Cholesterol 107 mg/dL (0-200) 03/19/25 16:40 LDL Cholesterol, Calc 44 mg/dL (50-129) L 03/19/25 16:40 HDL Cholesterol 30 mg/dL (60-100) L 03/19/25 16:40 LDL/HDL Ratio 1.47 RATIO (0.00-3.22) 03/19/25 16:40 Cholesterol/HDL Ratio 3.57 mg/dL (0.0-4.40) 03/19/25 16:40 Lipase 12 U/L (13-60) L 03/19/25 16:40 Vitamin B12 323 pg/mL (232-1245) 03/19/25 16:40 Folate 9.1 ng/mL (4.8-37.3) 03/19/25 16:40 Procalcitonin 0.02 ng/mL (0-0.5) 03/19/25 16:40 TSH 0.39 uIU/mL (0.27-4.20) 03/19/25 16:40 HCG, Qual Negative (Negative) 03/19/25 16:40 Urine Color Yellow (Yellow) 03/19/25 17:15 Urine Appearance Clear (CLEAR) 03/19/25 17:15 Urine pH 7.5 (5-7) 03/19/25 17:15 Ur Specific [place] 1.006 (1.005-1.030) 03/19/25 17:15 Urine Protein Negative (Negative) 03/19/25 17:15 Urine Glucose (UA) Negative (Normal) 03/19/25 17:15 Urine Ketones Negative (Negative) 03/19/25 17:15 Urine Blood Negative (Negative) 03/19/25 17:15 Urine Nitrate Negative (Negative) 03/19/25 17:15 Urine Bilirubin Negative (Negative) 03/19/25 17:15 Urine Urobilinogen 1.0 mg/dL (Negative) 03/19/25 17:15 Ur Leukocyte Esterase Negative (Negative) 03/19/25 17:15 Urine RBC 0-2 /hpf (0-2) 03/19/25 17:15 Urine WBC 0-5 /hpf (0-5) 03/19/25 17:15 Ur Squamous Epith Cells 0-5 /hpf (0-5) 03/19/25 17:15 Amorphous Sediment Not Reportable 03/19/25 17:15 Urine Bacteria None seen /hpf (NONE) 03/19/25 17:15 Hyaline Casts 0-4 /lpf H 03/19/25 17:15 Urine Opiates Screen Negative ng/mL (Negative) 03/19/25 17:15 Ur Barbiturates Screen Negative ng/mL (Negative) 03/19/25 17:15 Ur Phencyclidine Scrn Negative ng/mL (Negative) 03/19/25 17:15 Ur Amphetamines Screen Negative ng/mL (Negative) 03/19/25 17:15 U Benzodiazepines Scrn Negative ng/mL (Negative) 03/19/25 17:15 Urine Cocaine Screen Negative ng/mL (Negative) 03/19/25 17:15 U Marijuana (THC) Screen Positive ng/mL (Negative) H 03/19/25 17:15 Ethyl Alcohol < 10 mg/dL (0-10) 03/19/25 16:40 C. difficile (PCR) Positive (Negative) H 03/20/25 16:25 C.difficile Tox Confrm Negative (Negative) 03/20/25 16:25 Vitals Last Vital Signs Temp 99.0 F 03/21/25 11:17 Pulse 66 10/28/25 11:17 Resp 18 03/21/25 11:17 BP 146/106 03/21/25 11:17 Pulse Ox 97 03/21/25 11:17 O2 Del Method Room Air 03/21/25 11:17 O2 Flow Rate 2 03/20/25 08:00 Discharge Plan Discharge Patient Disposition: Home Condition: Stable Prescriptions: New ondansetron 4 mg tablet,disintegrating 4 mg PO Q6H PRN (Reason: nausea and vomiting) Qty: 14 0RF vancomycin 125 mg Capsule 125 mg PO Q6H 10 Days Qty: 40 0RF folic acid 1 mg Tablet 1 mg PO DAILY 30 Days Qty: 30 0RF thiamine mononitrate (vit B1) [Vitamin B-1 (mononitrate)] 100 mg Tablet 100 mg PO DAILY 30 Days Qty: 30 0RF naloxone [Narcan] 4 mg/actuation spray,non-aerosol 4 mg intranasal Q2M PRN (Reason: opioid overdose) Qty: 2 0RF Rx Instructions: spray 1 dose into ONE nostril; alternate nostrils w each dose until help arrives Continued acetaminophen [Tylenol Extra Strength] 500 mg tablet 500 mg PO Q6H PRN (Reason: Pain) levocetirizine [Allergy Relief (levocetirizin)] 5 mg tablet 5 mg PO DAILY PRN (Reason: allergy symptoms) Qty: 30 0RF fluticasone propionate [Flonase Allergy Relief] 50 mcg/actuation spray,suspension 1 spray intranasal DAILY PRN (Reason: nasal congestion) Qty: 16 0RF Rx Instructions: administer into each nostril losartan 100 mg tablet 100 mg PO DAILY atorvastatin 80 mg tablet 80 mg PO DAILY medroxyprogesterone 150 mg/mL suspension 150 mg IM Q90D escitalopram oxalate 10 mg tablet See Rx Instructions .ROUTE .COMPLEX Rx Instructions: Take 1/2 tablet BY MOUTH DAILY FOR TWO weeks, THEN take ONE tablet EVERY DAY. metoprolol tartrate 25 mg tablet 25 mg PO BID chlorthalidone 25 mg Tablet 25 mg PO DAILY Qty: 60 0RF amlodipine 10 mg Tablet 10 mg PO DAILY Qty: 60 0RF Held hydralazine 50 mg tablet 50 mg PO TID Hold Instructions: Resume on 03/22/25. Discontinued meloxicam 15 mg tablet 15 mg PO DAILY No Action (DME) blood pressure monitor [Blood Pressure Kit] Kit See Rx Instructions .Route Qty: 1 0RF Rx Instructions: As directed Discharge Order = DC NOW: Discharge Order (Routine); Ordered 03/21/25 Ordered By: Jared Galindo Referrals: [facility] [Outside] Chrissy Felton FNP [Referring, Nurse Practitioner] - 03/27/25 1:30 pm Discharge Diet: Advance as tolerated Discharge Activity: Resume usual activity Patient Instructions: Vancomycin (By mouth), Naloxone (Into the nose), C. 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
== END 2025-03-21 15:15 | disposition home or self-care (01) | DRG 773 ==
LOC: ER 21:37 → ICU 22:18 → MEDSURG 03-21 05:46
PROVIDERS: Internal Medicine; Admitting Provider Family Medicine; Emergency Provider Emergency Medicine; PCP Internal Medicine; Visit Provider Family Medicine
DX: F11.23 Opioid dependence with withdrawal (principal); R41.82 Altered mental status, unspecified; T40.2X5A Adverse effect of other opioids, initial encounter; Y92.9 Unspecified place or not applicable; I10 Essential (primary) hypertension; F17.210 Nicotine dependence, cigarettes, uncomplicated
CPT/HCPCS: 36415; 36416; 36600; 70450; 80051; 80053; 80061; 80306; 80307; 81001; 82140; 82330; 82607; 82746; 82803; 82805; 82962; 83036; 83605; 83690; 83735; 84100; 84145; 84443; 84484; 84703; 85025; 85610; 85651; 86140; 87040; 87205; 87324; 87493; 92523; 92610; 93005; 96365; 96366; 96367; 96372; 96375; 99291; 99292; J1630; J1650; J1953; J2060; J2405; J2470; J3411; J3480; J3490; J7030; J7040; J9999

== ENCOUNTER 2025-05-09 07:30 | Day surgery (SDC) | payer MEDICAID, SELFPAY ==
[2025-05-09] VITALS (7 sets, daily range): BP systolic 87–114; BP diastolic 58–76; PULSE 67–84; RESP 16–18; TEMP 36.1–36.5; O2SAT 93–98; BMI 33.7
[2025-05-09 07:47] LABS: OR HCG Qualitative Urine Negative (Negative)
--- NOTE | 2025-05-09 08:02 | W.PM.OPSUD ---
Surgery/Procedure H&P Update DATE OF PROCEDURE: May 09, 2025 DATE H&P PERFORMED: 05/03/25 H&P UPDATE INFORMATION: I have reviewed H&P completed within last 30 days, I have examined patient prior to procedure and No changes to prior documentation PLANNED PROCEDURE: Operation Date: 05/09/25 09:40 Proposed Procedures p RIGHT Carpal Tunnel Release(Right) - Dennis Alvarez MD
--- NOTE | 2025-05-09 08:05 | ANES.PREANE2 ---
Pre-Anesthetic Assessment Height/Weight: Height 5 ft 4 in Weight 197 lb Temp Pulse Resp BP Pulse Ox O2 Del Method 97.3 F L 84 18 114/71 97 Room Air 05/09/25 07:46 05/09/25 07:46 05/09/25 07:46 05/09/25 07:46 05/09/25 07:46 05/09/25 07:47 Preop Diagnosis: Carpal tunnel syndrome Operation Date: 05/09/25 09:40 Proposed Procedures p RIGHT Carpal Tunnel Release(Right) - Dennis Alvarez MD Was Beta Tere taken within 24 hours: N/A Was Clonidine taken within 24 hours: N/A Last intake: Intake Last Liquid Date 05/08/25 Last Liquid Time 22:00 Last Solid Date 05/08/25 Last Solid Time 22:00 Social Tobacco and No alcohol Quit drinking 2 months ago Exam alert, oriented x 3 and regular rate & rhythm Expiratory wheeze heard on auscultation Anesthetic Plan ASA status: 3 Anesthesia: MAC Other: No prior issues with anesthesia NPO since yesterday evening History of hypertension on losartan, metoprolol and chlorthalidone Quit drinking 2 months ago Smokes nicotine and marijuana hCG negative Labs 03/21/2025 reviewed and acceptable for procedure, K+ 3.3 at that time Plan for [facility] with [facility] Medications/Allergies Home Medications ?Medication ?Instructions ?Recorded ?Confirmed ?Last Taken ?Type blood pressure monitor (Blood #1 ea 01/07/22 05/08/25 Unknown Rx Pressure Kit) chlorthalidone 25 mg tablet 25 mg PO DAILY #60 tabs 01/07/22 05/08/25 05/08/25 Rx fluticasone propionate 50 1 spray intranasal DAILY PRN nasal 05/04/23 05/08/25 Unknown Rx mcg/actuation nasal congestion #16 grams spray,suspension (Flonase Allergy Relief) levocetirizine 5 mg tablet 5 mg PO DAILY PRN allergy symptoms 10/28/24 05/08/25 05/08/25 Rx (Allergy Relief (levocetirizine)) #30 tabs atorvastatin 80 mg tablet 80 mg PO DAILY 03/20/25 05/08/25 05/08/25 History hydralazine 50 mg tablet 50 mg PO BID 03/20/25 05/08/25 05/09/25 07:30 History Held on 03/21/25. Instructions: Resume on 03/22/25. losartan 100 mg tablet 100 mg PO DAILY 03/20/25 05/08/25 05/08/25 History metoprolol tartrate 25 mg tablet 25 mg PO BID 03/20/25 05/08/25 05/09/25 07:15 History celecoxib 200 mg capsule 200 mg PO DAILY 04/06/25 05/08/25 05/08/25 History trazodone 150 mg tablet 150 mg PO BEDTIME PRN sleep 05/08/25 05/08/25 Unknown History Allergies Allergy/AdvReac Type Severity Reaction Status Date / Time amoxicillin (From Augmentin) Allergy ALGY-Difficulty Verified 05/09/25 07:39 Swallowing clavulanic acid (From Allergy ALGY-Difficulty Verified 05/09/25 07:39 Augmentin) Swallowing lisinopril Allergy ALGY-Difficulty Verified 05/09/25 07:39 Swallowing Current Medications Generic Name Dose Route Start Last Admin Trade Name Freq PRN Reason Stop Dose Admin Sodium Chloride 1,000 mls @ 30 mls/hr 05/09/25 07:45 05/09/25 07:56 Sodium Chloride 0.9% IV 05/10/25 07:44 30 mls/hr .Q24H KARLO Administration PFSH Anesthesia Medical History Viral upper respiratory tract infection with cough Dental caries Acute bronchitis and bronchiolitis Hx of intrinsic asthma Hypertension, uncontrolled COVID Positive test 06/18/2021. Essential (primary) hypertension Surgical History History of umbilical hernia repair (05/28/20) Recurrent Status post right inguinal hernia repair History of umbilical hernia repair Family History Mother Cancer Lung Grandmother Cancer Breast Social History Smoking and tobacco/nicotine status: current every day tobacco/nicotine user Alcohol intake: current Household members: significant other Current gender identity: Female Female Reproductive History Date of last menstrual period: 04/17/25 Data Anesthesia Cardiac Studies: Echocardiogram 01/06/22
--- NOTE | 2025-05-09 08:31 | PC.NURSE ---
Cherrie Gomez CRNA administered 2 puffs of albuterol via inhaler
[2025-05-09] MEDS: BUPivacaine 0.5% INJ 30 mL 6 ML XX (09:10)
--- NOTE | 2025-05-09 09:20 | PM.OP ---
Operative Report Date of procedure: May 09, 2025 Surgeon: Dennis Alvarez MD Procedure: Preoperative diagnosis: Right carpal tunnel syndrome Postoperative diagnosis: Same Procedure: Right carpal tunnel release Surgeon: Dennis Alvarez MD Anesthesia: IV sedation with local anesthetic Tourniquet time: 9 minutes at 250 mmHg Indications: Maria Victoria is a 44-year-old white female was referred to the orthopedic clinics with positive nerve conduction test demonstrating bilateral carpal tunnel syndrome. She has more symptoms on the right than the left. Clinical exam confirmed her carpal tunnel syndrome. Therefore at this time patient was offered carpal tunnel releases. She is requesting a right hand done first. All risk benefits treatment alternatives discussed with her and she is agreeable to this at this time. She is understanding that because of the severity of her compression she may have permanent nerve damage and may have continued symptoms after release. It may also take up to 17 weeks to know how well this release has affected her. Procedure: After obtaining her consent patient was taken to the operative room on her [place] [facility] and IV sedation was administered. Once good anesthesia was achieved pneumatic cuffs placed on proximal right arm approximate and was prepped and draped usual fashion. After surgical timeout local anesthetic was administered to the palmar surface of the distal wrist and proximal palm this being half percent bupivacaine plain. Once good anesthetic effect was achieved a longitudinal incision made just ulnar to the mid palmar crease to the distal flexion crease of the wrist. Sharp to 6 taken on down to the subcutaneous tissues and then on down to the transverse carpal ligament. Transverse carpal ligament was then divided along the course of the skin incision. The remainder was divided in blunt sharp fashion with Metzenbaum scissors both proximally and distally. Wound was then cleaned and dried wound was closed with 3-0 Prolene horizontal mattress running suture. Wounds were dressed with Xeroform gauze sterile gauze dressing Kerlix wrap and Raghu wrap for compression patient awakened transferred cover in stable condition. Should be noted pneumatic cuff was deflated at the time of wound closure.
[2025-05-09] MEDS: HYDROcodone-acetaminophen 5-325 mg Tablet 1 TAB PO (10:06)
--- NOTE | 2025-05-09 10:23 | ANE.PACU2 ---
Inpatient post-anesthesia follow up: Airway intact: Yes Vital signs: Temperature 97.0 F Pulse Rate 77 Respiratory Rate 18 Blood Pressure 107/76 Pulse Oximetry 98 Oxygen Delivery Me thod Room Air Oxygen Flow Rate Fraction of Inspir ed Oxygen Hydration adequate: Yes Nausea and vomiting: No Pain level: 1 Mental status: Baseline
== END 2025-05-09 10:23 | disposition home or self-care (01) ==
PROVIDERS: PCP Internal Medicine; Visit Provider Orthopaedic Surgery
PROC: (CPT 64721; principal; 2025-05-09 09:30)
DX: G56.01 Carpal tunnel syndrome, right upper limb (principal); I10 Essential (primary) hypertension; J45.998 Other asthma; Z80.3 Family history of malignant neoplasm of breast; Z80.1 Family history of malignant neoplasm of trachea, bronchus and lung; F17.200 Nicotine dependence, unspecified, uncomplicated
CPT/HCPCS: 64721; 81025; J2250; J2704; J3010; J3490; J3535; J7030; J9999